=== PATIENT | female | born 1945 | race Caucasian/White ===

== ENCOUNTER 2018-01-15 22:31 | Inpatient (IN) ==
[2018-01-16] MEDS ORDERED: Ketorolac 15 MG/ML VIAL IVP PRN (03:11)
[2018-01-16] MEDS ORDERED: Naloxone 0.4 MG/ML INJ IVP PRN ×2 (03:11→18:48)
[2018-01-16] MEDS ORDERED: OXYCODONE Oral CONC 10 MG/0.5 ML ORAL.SYG SL PRN (03:11)
[2018-01-16] MEDS ORDERED: D5% in Lactated Ringers 1,000 ML IVC SCH ×2 (03:15→18:48)
--- NOTE | 2018-01-16 04:47 | Internal Med History&Physical ---
Date of Encounter: 01/16/18 Time of Encounter: 04:41 Internal Medicine - H&P: HPI Chief complaint: Fall History of present illness: Ms. Machado is a 72 year old female with a past medical history of hypertension, Parkinson's, hyperlipidemia and spinal stenosis who initially presented to [facility] after a mechanical fall from a standing height. Patient states she was in the kitchen and left to go to her bedroom using her walker. She states that her legs all of a sudden gave out from under her resulting in her fall. Patient was unable to arise from the floor and states that she was down for about 2 hours until her daughter arrived. Her was with her in the house however he was in his bedroom and is hard of hearing. Was patient was found by family member after approximately 2-1/2 hours downtime. Currently denies any significant pain except with attempted motion of her left lower extremity. Patient has a history of chronic pain from spinal stenosis and was just started on a fentanyl patch recently. Patient is only patient is currently on aspirin. Patient arrived to [facility] at clinically stable. Documents show that a left hip deformity was noted. X-ray of the left hip showed left femoral neck fracture. Laboratory workup was otherwise unremarkable. Past Med Surg Social Fam HX - Past Medical History Medical history: atrial fibrillation, hyperlipidemia, hypertension, other Additional medical history: parkinsons - Past Surgical History Additional surgical history: tubal ligation, salpingectomy, right middle and index finger reattachment, adenoids - Social History Smoking Status: Never smoker Smokeless Tobacco Status: No Alcohol use: none Drug use: none - Family History Father Living Status: Hx Family Neurologic Disorders: Yes (parkinsons) Internal Medicine - H&P: Meds Amantadine HCl [Amantadine] 100 mg PO TID 01/16/18 [History] Aspirin Enteric Coated [Aspirin EC] 81 mg PO DAILY 01/16/18 [History] Atorvastatin [Lipitor] 20 mg PO HS 01/16/18 [History] Carbidopa/Levodopa ER 50/200 [Sinemet ER 50-200 TAB] 1 tab PO 5XD 01/16/18 [History] Cyanocobalamin (Vitamin B-12) [Vitamin B-12] 500 mcg PO DAILY 01/16/18 [History] Entacapone [Comtan] 200 mg PO QID 01/16/18 [History] Metoprolol Tartrate [Lopressor] 25 mg PO BID 01/16/18 [History] Venlafaxine HCl [Venlafaxine HCl ER] 150 mg PO DAILY 01/16/18 [History] fentaNYL [Fentanyl] 25 mcg TP Q72H 01/16/18 [History] hydrOXYzine HCl [Hydroxyzine HCl] 10 mg PO HS 01/16/18 [History] Allergy/AdvReac Type Severity Reaction Status Date / Time metoclopramide [From Reglan] AdvReac Vomiting Verified 01/16/18 03:35 Penicillins AdvReac Vomiting Verified 01/16/18 03:35 All Systems PM: A 10-system review of systems was performed and is negative for pertinent findings except as documented above in the HPI. - Constitutional Constitutional: no chills, no fever(s), no night sweats - EENT Eyes: no change in vision, no discharge, no pain, no photophobia Ears: no ear discharge, no ear pain, no tinnitus Nose, mouth and throat: no dysphagia, no nasal discharge, no neck pain, no sore throat - Cardiovascular Cardiovascular ROS IM: no chest pain, no diaphoresis, no dyspnea, no li ghtheadedness, no palpitations, no syncope - Respiratory Respiratory: no cough, no dyspnea, no wheezing, no excessive phlegm production - Gastrointestinal Gastrointestinal: no abdominal pain, no diarrhea, no hematemesis, no hematochezia, no melena, no nausea, no vomiting - Genitourinary Genitourinary: no change in urinary stream, no dysuria, no flank pain, no hematuria - Musculoskeletal Musculoskeletal ROS IM: no numbness, no tingling - Integumentary Integumentary IM: no rash, no unusual bruising - Neurological Neurological ROS: no confusion, no convulsions, no focal weakness, no numbness, no tingling, no tremor(s) - Hematologic/Lymphatic Hematologic/Lymphatic: no easy bruising - Constitutional Vitals: Temp Pulse Resp BP Pulse Ox 98.1 F 51 17 113/71 94 01/16/18 03:27 01/16/18 03:27 01/16/18 03:27 01/16/18 03:27 01/16/18 03:27 Exam: General: Alert and oriented 3; no acute distress Skin:Normal color, no rash, no lesions. HEENT:EOM, pupils equal, round and reactive. Cardiovascular:Normal S1 & S2, no rubs, murmurs or gallops. No JVD. Pulse regular. Lungs:Normal breath sounds, no wheezes or crackles. Abdomen:Soft, non-tender, no rigidity. Extremities:No edema. DP pulses palpable bilaterally. Shortening of the left leg as compared to the right. Mild tenderness to palpation of the left hip Neurological: Resting tremor noted in the right lower extremity. Pulses:Carotid and radial pulses normal +2. Rest of the physical exam is non contributory Internal Med - H&P Results - Labs CBC & Chem 7: 01/17/18 05:55 01/17/18 05:55 - Assessment and plan (1) Fracture of femoral neck, left Current Visit: Yes Status: Acute Assessment and plan: Mechanical fall with Subcapital left femoral neck fracture with varus angulation with some overriding component as well as displacement of a distal fracture fragment slightly superiorly. Pain management IV fluids DVT prophylaxis Orthopedic consult Qualifiers: Encounter type: initial encounter Fracture type: closed Qualified Code(s): S72.002A - Fracture of unspecified part of neck of left femur, initial encounter for closed fracture (2) Parkinsons Current Visit: Yes Status: Acute Assessment and plan: History of Parkinson's. Holding medications until further evaluation by orthopedics. (3) Hypertension Current Visit: Yes Status: Acute Qualifiers: Hypertension type: unspecified Qualified Code(s): I10 - Essential (primary) hypertension (4) DVT prophylaxis Current Visit: Yes Status: Acute - Time Spent With Patient Total time spent is greater than 50% in coordination of care (as documented) at patient's floor/unit and/or counseling patient:
[2018-01-16 05:39] LABS: Basophils % 0.4 %; Eosinophils # 0.1 K/mcL (0.0-0.6); Eosinophils % 1.5 %; Hematocrit 39.5 % (35.3-44.9); Hemoglobin 12.4 g/dL (11.5-15.4); Immature Granulocytes % 0.4 % (0-4); Lymphocytes # 0.9 K/mcL (0.6-4.6); Lymphocytes % 17.2 %; Mean Corpuscular HGB Conc 31.4 g/dL (31.6-35.5); Mean Corpuscular Hemoglobin 28.3 pg (28.0-33.3); Mean Corpuscular Volume 90.2 fL (83.0-100.0); Mean Platelet Volume 9.3 fL (9.4-12.4); Monocytes # 0.3 K/mcL (0.0-1.3); Monocytes % 5.5 %; Neutrophils # 4.1 K/mcL (1.6-8.9); Platelet Count 129 K/mcL (140-400); Red Blood Count 4.38 M/mcL (3.82-4.97); Red Cell Distribution Width 13.6 % (11.5-14.5)
[2018-01-16 05:45] LABS: INR 1.3; Prothrombin Time 14.9 Seconds (9.4-12.1)
[2018-01-16 05:47] LABS: Activated Partial Thrombo Time 29.1 Seconds (26.0-36.0)
[2018-01-16 05:55] LABS: BUN/Creatinine Ratio 20 (6-26); Blood Urea Nitrogen 14 mg/dL (8-23); Calcium 8.8 mg/dL (8.6-10.3); Carbon Dioxide 27 mEq/L (23-29); Chloride 106 mEq/L (98-107); Creatine Kinase 293 Units/L (30-223); Glucose 98 mg/dL (70-105); Osmolality,Calculated 286 (280-300); Potassium 3.6 mEq/L (3.5-5.1); Sodium 138 mEq/L (136-145); eGFR For Non-African Americans > 60 (> 60)
[2018-01-16] MEDS: *HR* Heparin 5,000 UNIT/ML VIAL SQ SCH ×3 (06:31→20:55)
--- NOTE | 2018-01-16 07:03 | Orthopedic Consult Note ---
Date of Encounter: 01/16/18 Time of Encounter: 07:01 Assessment and Plan (1) Fracture of femoral neck, left Current Visit: Yes Status: Acute I did discuss the diagnosis in detail with the patient. She has a displaced left femoral neck fracture. My recommendation was to proceed with left hip hemiarthroplasty in order to stabilize the left hip, provide pain control, and allow for early mobilization.The risks discussed included but were not limited to stiffness, bleeding, infection, blood clots, damage to neurovascular structures, tendons, ligaments, and bone. Also discussed was the risk of continued symptoms and possible need for further procedures. I did discuss the anesthesia risks including stroke, heart attack, and . I did discuss the reasonable, foreseeable postoperative course with the patient. The patient did wish to proceed and consent was obtained. I did discuss the risks of fracture and dislocation and the need for implant revision. Qualifiers: Encounter type: initial encounter Fracture type: closed Qualified Code(s): S72.002A - Fracture of unspecified part of neck of left femur, initial encounter for closed fracture History of Present Illness HPI: Ms. Machado is a 72 year old female with a history of Parkinson's disease. She had a fall last night while using her walker and sustained a left displaced femoral neck fracture. She was transferred to our [facility] from an outside facility. She complains of isolated pain to the left proximal hip region and groin. She denies other injuries. She denies bilateral upper extremity pain and right lower extremity pain. The pain to the left hip is achy in nature and worse with any movements. She denies any associated numbness, tingling, or any other signs or symptoms or modifying factors. Past Med Surg Social Fam HX - Past Medical History Medical history: atrial fibrillation, hyperlipidemia, hypertension, other Additional medical history: parkinsons - Past Surgical History Additional surgical history: tubal ligation, salpingectomy, right middle and index finger reattachment, adenoids - Social History Smoking Status: Never smoker Smokeless Tobacco Status: No Alcohol use: none Drug use: none - Family History Father Living Status: Hx Family Neurologic Disorders: Yes (parkinsons) Medications and Allergies Amantadine HCl [Amantadine] 100 mg PO TID 01/16/18 [History] Aspirin Enteric Coated [Aspirin EC] 81 mg PO DAILY 01/16/18 [History] Atorvastatin [Lipitor] 20 mg PO HS 01/16/18 [History] Carbidopa/Levodopa ER 50/200 [Sinemet ER 50-200 TAB] 1 each PO 5XD 01/16/18 [History] Cyanocobalamin (Vitamin B-12) [Vitamin B-12] 500 mcg PO DAILY 01/16/18 [History] Entacapone [Comtan] 200 mg PO QID 01/16/18 [History] Metoprolol Tartrate [Lopressor] 25 mg PO BID 01/16/18 [History] Venlafaxine HCl [Venlafaxine HCl ER] 150 mg PO DAILY 01/16/18 [History] hydrOXYzine HCl [Hydroxyzine HCl] 10 mg PO HS 01/16/18 [History] Allergy/AdvReac Type Severity Reaction Status Date / Time metoclopramide [From Reglan] AdvReac Vomiting Verified 01/16/18 03:35 Penicillins AdvReac Vomiting Verified 01/16/18 03:35 All Systems Reviewed: Constitutional and musculoskeletal systems were reviewed and are negative unless otherwise stated in history of present illness. Physical Exam - Constitutional Vitals: Temp Pulse Resp BP Pulse Ox 97.8 F 71 16 147/68 96 01/16/18 06:52 01/16/18 06:52 01/16/18 06:52 01/16/18 06:52 01/16/18 06:52 Constitutional -Vitals reviewed -The patient is well developed and well nourished. -Mood is pleasant. -The patient is well groomed. -Generalized tremors consistent with her Parkinson's Psychiatric -The patient is fully alert and oriented x 3. Respiratory: -Respiratory effort normal Abdomen: -Soft abdomen -Non tender -Non distended: Left upper extremity: -No deformities. The overlying skin is intact. No obvious signs of acute trauma. -No tenderness to palpation throughout. -No significant pain with passive motion of the shoulder, elbow, wrist, and fingers within the limits of the bed. -Able to make an "OK" sign, cross the index and long fingers, and extend the thumb. -Sensation grossly intact to light touch throughout the median, radial, and ulnar distributions. -Radial pulse is present; Fingers have good capillary refill. Right upper extremity: -No deformities. The overlying skin is intact. No obvious signs of acute trauma. -No tenderness to palpation throughout. -No significant pain with passive motion of the shoulder, elbow, wrist, and fingers within the limits of the bed. -Able to make an "OK" sign, cross the index and long fingers, and extend the thumb. -Sensation grossly intact to light touch throughout the median, radial, and ulnar distributions. -Radial pulse is present; Fingers have good capillary refill. Left lower extremity: -The extremity is shortened and externally rotated. The overlying skin is intact. -There is tenderness in the groin region as well as the proximal lateral thigh. -I did not range the hip due to the known fracture. -No tenderness along the distal thigh, leg, ankle, foot, or toes. -Able to dorsiflex and plantarflex the ankle and toes. -Sensation is grossly intact to light touch throughout the sural, saphenous, superficial peroneal, and deep peroneal distributions. -Toes have good capillary refill. Right lower extremity: -No deformities. The overlying skin is intact. No obvious signs of acute trau ma. -No tenderness to palpation throughout. -No pain with passive motion of the hip, knee, ankle, and toes within the limits of the bed. -No pain with axial loading of the thigh. -Able to dorsiflex and plantarflex the ankle and toes. -Sensation is grossly intact to light touch throughout the sural, saphenous, superficial peroneal, and deep peroneal distributions. -Toes have good capillary refill. Diagnostic Imaging: I did personally review and interpret x-rays of the left hip show a displaced femoral neck fracture Results - Labs Result Diagrams: 01/16/18 05:10 01/16/18 05:10 Labs: Abnormal lab results MCHC 31.4 g/dL (31.6-35.5) L 01/16/18 05:10 Plt Count 129 K/mcL (140-400) L 01/16/18 05:10 MPV 9.3 fL (9.4-12.4) L 01/16/18 05:10 PT 14.9 Seconds (9.4-12.1) H 01/16/18 05:10 Creatine Kinase 293 Units/L (30-223) H 01/16/18 05:10 H & H 01/16/18 Range/Units 05:10 Hgb 12.4 (11.5-15.4) g/dL Hct 39.5 (35.3-44.9) % All other labs normal. Consult Discharge Plan - Plan Referrals: Solia Sagastume, ADRIAN [Primary Care Provider] -
--- NOTE | 2018-01-16 15:15 | Event Note ---
<Gosia Portillo - Last Filed: 01/16/18 15:31> Date of Encounter: 01/16/18 Time of Encounter: 09:00 Ms. Machado is a 72Yo F. Hospital day 0. Pt states she was in the kitchen last night about to walk back to her bedroom when her 'legs gave out' and she fell to the floor. She states she was down for about 2 hours until her daughter arrived and was able to call the ambulance. Xray showed left displaced subcapital femoral neck fx. Ortho was consulted and recommended hemiarthroplasty for stabilization. Pt states that the procedure will be performed later this morning. She is currently NPO. Pt denies fever, diaphoresis, confusion, H/A, vision changes, chest pain, SOB, syncope, palpitations, abdominal pain, NVD, numbness tingling, weakness. PMH: a-fib, HLD, HTN, Parkinson's, spinal stenosis Physical Exam: general: AAOX3, NAD Heart: RRR, no rubs, no gallops Lungs: CTAB, no wheezing, no rhonchi Abdomen: Normal BS X4, soft nondistended, nontender to palpation MSK: large ecchymosis on left shoulder, tenderness to palpation of left hip Skin: warm and dry, no lesions Assessment and Plan: Fracture of left femoral neck plan: pain control with oxycodone and toradol, s/p left hip hemiarthroplasty, DVT prophylaxis Parkinson's disease plan: pt medications are being held until further ortho evaluation, takes amantadine HTN pt BP 122/69 on 01/16/18 plan: metoprolol d/c DVT prophylaxis plan: Heparin SQ <Kristen Eastman - Last Filed: 01/16/18 18:21> I have re-performed and reviewed the history documented by the medical student, and I confirm its accuracy except as noted below <Ni Montoya - Last Filed: 01/17/18 01:18> I examined this patient and my medical decision-making was reviewed with the Resident Physician and Medical Student. I agree with the documented findings, disposition and treatment plan as described except to the extent set forth below.
--- NOTE | 2018-01-16 16:21 | Anesthesia Evaluation PreOp ---
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: Other (Chronic pain, Parkinsonism, Spinal Stenosis) Other Medical History: Denies Any Significant HX Anesthesia History: No Prior Anesthetic Complications, Past Anesthesia Alcohol Use: none Drug use: none Medications and Allergies Amantadine HCl [Amantadine] 100 mg PO TID 01/16/18 [History] Aspirin Enteric Coated [Aspirin EC] 81 mg PO DAILY 01/16/18 [History] Atorvastatin [Lipitor] 20 mg PO HS 01/16/18 [History] Carbidopa/Levodopa ER 50/200 [Sinemet ER 50-200 TAB] 1 tab PO 5XD 01/16/18 [History] Cyanocobalamin (Vitamin B-12) [Vitamin B-12] 500 mcg PO DAILY 01/16/18 [History] Entacapone [Comtan] 200 mg PO QID 01/16/18 [History] Metoprolol Tartrate [Lopressor] 25 mg PO BID 01/16/18 [History] Venlafaxine HCl [Venlafaxine HCl ER] 150 mg PO DAILY 01/16/18 [History] fentaNYL [Fentanyl] 25 mcg TP Q72H 01/16/18 [History] hydrOXYzine HCl [Hydroxyzine HCl] 10 mg PO HS 01/16/18 [History] Allergy/AdvReac Type Severity Reaction Status Date / Time metoclopramide [From Reglan] AdvReac Vomiting Verified 01/16/18 03:35 Penicillins AdvReac Vomiting Verified 01/16/18 03:35 - Meds/Allergy Pre-op Review Medications Reviewed: Yes Allergies Reviewed: Yes Beta Blockers on Current Med List: No Anesthesia Results - Labs 01/16/18 05:10 01/16/18 05:10 Laboratory Results - Imaging EKG: pending Anesthesia Exam Vital Signs Temp Pulse Resp BP Pulse Ox 01/16/18 11:07 99.2 F 69 18 122/69 96 01/16/18 06:52 97.8 F 71 16 147/68 96 01/16/18 03:27 98.1 F 51 17 113/71 94 Intake and Output 01/16/18 01/16/1801/16/18 07:59 15:59 23:59 Other: Weight 70 kg Patient Weight 01/16/18 23:59 Weight 70 kg Height: 5'5" Weight: 154# BMI = 25.7 NPO (# of Hours): MNoc Pain Scale Used: Numeric (1 - 10) - HEENT Pupil (Motor): Pupils equal, EOMI - 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: 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 MARINE ENGINE[employer] Motor: Normal RUE (baseline tremors x all 4 extremities), Normal LUE, Normal RLE, Normal LLE, Normal Face [employer] ENG[employer] Sensory: Normal: RUE, LUE, RLE, LLE, Face - Cardiac Rhythm: Irregular Murmur: None JVD: No - Pulmonary Breath Sounds: bilateral Clear Respiratory Effort: Symmetrical Anesthesia Assess/Plan ASA Score: 3 (Spinal stenosis, Chronic Pain, AFib) Modified Tarik Scale for Level of Consciousness: Cooperative, oriented, and tranquil Anesthetic Plan: General Monitoring Plan: Standard Monitors Recovery Plan: PACU Anes Supervising Prov Stmt: Pt seen/evaluated, R&B questions answered and consent obtained. Luis Del Castillo MD
[2018-01-16] MEDS ORDERED: Ethanol\\Acetic Acid\\Na Ace\\Ben 1,000 ML IRRIG.SOLN IR ONE (16:25)
[2018-01-16] MEDS ORDERED: *HR* FentaNYL (PF) 100 MCG/2 ML VIAL ONE (16:50)
[2018-01-16] MEDS ORDERED: *HR* Propofol 200 MG/20 ML VIAL IVP ONE (16:50)
[2018-01-16] MEDS ORDERED: Dexamethasone 4 MG/ML VIAL ONE (16:51)
[2018-01-16] MEDS ORDERED: Ondansetron 4 MG/2 ML VIAL ONE (16:51)
[2018-01-16] MEDS ORDERED: Lidocaine -MPF 2% 2 ML VIAL ONE (16:51)
[2018-01-16] MEDS ORDERED: *HR* Morphine 2 MG/ML SYRINGE IVP PRN (16:55)
[2018-01-16] MEDS ORDERED: *HR* Labetalol 20 MG/4 ML SYRINGE IVP PRN ×2 (16:55→18:48)
[2018-01-16] MEDS ORDERED: *HR* Rocuronium Bromide 50 MG/5 ML VIAL ONE (17:55)
--- NOTE | 2018-01-16 18:06 | Orthopedic Operative Note ---
Date of procedure: 01/16/18 Pre-op diagnosis: Displaced left femoral neck fracture Post-op diagnosis: same Procedure: Procedure: Left hip hemiarthroplasty Estimated blood loss: 200 cc Hardware: Bipolar plastic and Metal replacement femur and femoral head. Size 13 press-fit stem, 46 bipolar head with a -6 neck Findings: Patient with acetabular wear posteriorly. Procedural Notes: Operative procedure: The patient was brought to the operating room and placed on the operating room table. After general anesthesia was administered the patient was placed in the lateral decubitus position with the operative leg up. All pressure points were padded appropriately and the head was stabilized in the neutral position. The operative extremity was prepped and draped in the sterile surgical fashion patient received IV antibiotic prior to skin incision. A standard posterior approach is made to the operative hip, the incision was made through the skin and subcutaneous tissue hemostasis was obtained with Bovie cautery. Using careful sharp dissection the fascia was identified and incised exposing the external rotators. The external rotators were released off the greater trochanter and tagged with #2 FiberWire suture. The capsule was T'd open the femoral head was removed. The femoral neck cut was made at the appropriate level. The hip was brought into internal rotation and prepared with the hand box coverer followed by the canal finder followed by broaching process in 20 degrees anteversion. It was broached up to the appropriate size 13. The femoral implant was impacted in place in 20 degrees of anteversion. Trial reduction found the hip to be stable with the -6 neck 46 bipolar head. The trials were removed and the real implants were impacted in place. The hip was reduced, the hip had full extension and full flexion of the knee was in full extension.the patient had apparent equal leg length. The hip had excellent stability with forward flexion to 90 degrees adduction of 30 degrees and internal rotation of 60 degrees. The hip had no shuck. The hip was irrigated out with 2 L of pulse irrigation. The external rotators were reattached to drill holes in the greater trochanter. Fascia was closed over #2 PDS suture. The deep tissue was irrigated and closed deep with #1 PDS suture superficially with 0 PDS suture and skin was closed with skin nabeel. The patient was placed in a sterile dressing and abduction pillow. The patient was extubated and transferred to the recovery room in stable condition. Anesthesia: GETA Surgeon: Can Castanon Was there an safety assistant present: Yes Lumber Tripper: Madalyn Ledezma Estimated blood loss (cc): 200 Condition: stable Disposition: PACU
[2018-01-16] MEDS ORDERED: Ondansetron 4 MG/2 ML VIAL IVP PRN (18:48)
[2018-01-16] MEDS ORDERED: Temazepam 15 MG CAPSULE PO PRN (18:48)
[2018-01-16] MEDS ORDERED: Sennosides 8.6 MG TABLET PO PRN (18:48)
[2018-01-16] MEDS ORDERED: Ringers Solution, Lactated 1,000 ML IVC SCH (18:48)
[2018-01-16] MEDS ORDERED: MOM Conc 10 ML UD.LIQ PO PRN (18:48)
[2018-01-16] MEDS: Ketorolac 15 MG/ML VIAL IVP PRN (18:49)
[2018-01-16] MEDS: *HR* Morphine 2 MG/ML SYRINGE IVP PRN ×2 (18:49→18:59)
[2018-01-16 20:09] LABS: Hematocrit 35.7 % (35.3-44.9); Hemoglobin 11.3 g/dL (11.5-15.4)
--- NOTE | 2018-01-16 20:21 | Anesthesia Evaluation Post Op ---
Date of Encounter: 01/16/18 Time of Encounter: 19:15 - Vital Signs Vital Signs: Vital Signs/O2 Sat/Glucose, Most Current Temp Pulse Resp BP Pulse Ox 01/16/18 19:12 98.5 F 92 14 120/88 97 01/16/18 19:02 98.5 F 95 14 135/83 98 01/16/18 18:52 78 16 137/78 99 01/16/18 18:42 75 16 136/77 97 01/16/18 18:32 98.6 F 80 16 151/65 100 - Lungs Lungs: Clear Ascult./Percussion - Airway Airway: Non-obstructed - Cardiovascular Regular Rate - Mental Status Mental Status: Alert & Oriented, Answers Appropriately - Pain Pain Scale: 0 - Nausea Vomiting Nausea Vomiting: Not Present - Hydration Hydration: Tolerates oral liquids - Discharge PostOp Status: Transfer Patient to floor
[2018-01-16] MEDS: OXYCODONE Oral CONC 10 MG/0.5 ML ORAL.SYG SL PRN (20:55)
[2018-01-16] MEDS: Clindamycin 900 MG/50 ML 900 MG/50 ML IV.SOLN IVPB SCH (23:31)
[2018-01-17] MEDS: OXYCODONE Oral CONC 10 MG/0.5 ML ORAL.SYG SL PRN (04:18)
[2018-01-17] MEDS: *HR* Heparin 5,000 UNIT/ML VIAL SQ SCH (05:14)
--- NOTE | 2018-01-17 06:16 | Orthopedics Progress Note ---
Date of Encounter: 01/17/18 Time of Encounter: 06:16 Subjective Interval history: Patient was seen this morning doing well without complaints. Afebrile vital signs stable. Operative extremity: Neurovascularly intact Dressing clean dry and intact Calves nontender Assessment and plan: Continue with postoperative care Objective Vital signs: Vital Signs Temp Pulse Resp BP Pulse Ox 01/17/18 04:47 98.7 F 88 16 115/56 97 01/16/18 22:30 98.8 F 88 16 121/61 94 01/16/18 21:30 98.9 F 81 16 132/71 98 01/16/18 20:30 98.9 F 97 16 120/73 97 01/16/18 20:00 97.8 F 109 16 115/71 98 01/16/18 19:30 97.1 F L 93 18 136/80 100 01/16/18 19:12 98.5 F 92 14 120/88 97 01/16/18 19:02 98.5 F 95 14 135/83 98 01/16/18 18:52 78 16 137/78 99 01/16/18 18:42 75 16 136/77 97 01/16/18 18:32 98.6 F 80 16 151/65 100 01/16/18 11:07 99.2 F 69 18 122/69 96 01/16/18 06:52 97.8 F 71 16 147/68 96 Intake and Output 01/16/18 01/16/18 01/17/18 15:59 23:59 07:59 Intake Total 100 / 100 50 / 50 Output Total 650 / 650 425 / 425 Balance -550 / -550 -375 / -375 Intake: IV Fluids 50 / 50 Cleocin Premix 900 MG/50 ML 900 50 / 50 mg In 50 ml @ 50 mls/hr IVPB Q8HR [facility] Rx#:[id number] Oral 100 / 100 0 / 0 Output: Estimated Blood Loss 200 / 200 Catheter 450 / 450 425 / 425 Other: Weight 68.9 kg Patient Weight 01/17/18 23:59 Weight 68.9 kg - Labs CBC & BMP: 01/16/18 18:57 01/16/18 05:10 Labs: Abnormal lab results Hgb 11.3 g/dL (11.5-15.4) L 01/16/18 18:57 MCHC 31.4 g/dL (31.6-35.5) L 01/16/18 05:10 Plt Count 129 K/mcL (140-400) L 01/16/18 05:10 MPV 9.3 fL (9.4-12.4) L 01/16/18 05:10 PT 14.9 Seconds (9.4-12.1) H 01/16/18 05:10 Creatine Kinase 293 Units/L (30-223) H 01/16/18 05:10 Consult Discharge Plan - Plan Referrals: Soila Sagastume, INTEGRATION AIDE [Primary Care Provider] -
[2018-01-17 06:22] LABS: Hemoglobin 10.3 g/dL (11.5-15.4)
[2018-01-17 06:38] LABS: BUN/Creatinine Ratio 20 (6-26); Blood Urea Nitrogen 14 mg/dL (8-23); Calcium 8.4 mg/dL (8.6-10.3); Carbon Dioxide 27 mEq/L (23-29); Chloride 104 mEq/L (98-107); Glucose 117 mg/dL (70-105); Osmolality,Calculated 286 (280-300); Potassium 3.8 mEq/L (3.5-5.1); Sodium 137 mEq/L (136-145); eGFR For Non-African Americans > 60 (> 60)
[2018-01-17] MEDS: Multivit/Ca/Min/Fe/FA 1 TAB TABLET PO SCH (08:23)
[2018-01-17] MEDS: Clindamycin 900 MG/50 ML 900 MG/50 ML IV.SOLN IVPB SCH (08:24)
[2018-01-17] MEDS: Ascorbic Acid 500 MG TABLET PO SCH ×2 (08:25→16:20)
[2018-01-17] MEDS ORDERED: *HR* FentaNYL PATCH 25 MCG PATCH TD SCH (08:45)
[2018-01-17] MEDS: Cyanocobalamin (B-12) 1,000 MCG TABLET PO SCH (09:33)
[2018-01-17] MEDS: Aspirin Enteric Coated 81 MG Tablet PO SCH (09:34)
[2018-01-17] MEDS: Venlafaxine XR (24 HR) 150 MG CAP.ER.24H PO SCH (09:36)
--- NOTE | 2018-01-17 11:36 | Internal Med Progress Note ---
<Gosia Portillo - Last Filed: 01/17/18 12:59> Hospitalist Progress Note - Encounter Date of Encounter: 01/17/18 Time of Encounter: 09:00 - Subjective Interval History: pt is a 72 Yo F. Hospital day 1. pt presented for a left displaced subcapital femoral fracture after falling in her kitchen 01/16/18 ortho was consulted and recommended a left hip hemiarthroplasty which was performed yesterday afternoon 01/16/18 Pt seen today and denies fever, NVD, H/A, confusion, vision changes, SOB, chest pain, abdominal pain. Pt has not yet had a BM. She admits to dizziness, diaphoresis, numbness in the left leg, and mild weakness in bilateral LE. Pt states she is doing well today and tolerated surgery well. - Exam Vitals: Temp Pulse Resp BP Pulse Ox 98.5 F 92 15 146/68 94 01/17/18 10:50 01/17/18 10:50 01/17/18 10:50 01/17/18 10:50 01/17/18 10:50 Exam: General: AAOX3, NAD HEENT: normocephalic, mucous membranes moist Cardiovascular: RRR, no murmurs, no rubs Respiratory: CTAB, no wheezing, no rhonchi Abdomen: normal BSX4, soft, nontender, nontender to palpation MSK: no leg edema, left leg and hip in brace Skin: warm and dry - Assessment and Plan (1) Fracture of femoral neck, left Current Visit: Yes Status: Acute Assessment and Plan: pt presented with left displaced subcapital femoral fracture after falling in her kitchen on 01/16/18 ortho was consulted and recommended left hip hemiarthroplasty for stabilization. 01/16/18 hemiarthroplasty was performed yesterday afternoon and pt tolerated surgery well. plan -continue postoperative care -IVF lactated ringers -pain management -f/u with PTOT -f/u with [facility] -d/c to home tomorrow with lovenox (2) Parkinsons Current Visit: Yes Status: Chronic Assessment and Plan: pt has chronic h/o parkinson's disease plan -continue amantadine -continue carbidopa/levodopa (3) Hypertension Current Visit: No Status: Chronic Assessment and Plan: pt has chronic h/o HTN pt BP on 01/16/18 was 121/61 today BP is 116/58 plan -on metoprolol and labetalol (4) DVT prophylaxis Current Visit: Yes Status: Acute Assessment and Plan: plan -d/c heparin SQ -start Lovenox 01/18/18 - Time Spent with Patient Total time spent is greater than 50% in coordination of care (as documented) at patient's floor/unit and/or counseling patient: Internal Medicine: Result - Labs CBC & Chem 7: 01/17/18 05:55 01/17/18 05:55 Labs: Short CBC 01/16/18 01/17/18 Range/Units 18:57 05:55 Hgb 11.3 L 10.3 L (11.5-15.4) g/dL Hct 35.7 32.0 L (35.3-44.9) % BMP 01/17/18 05:55 Sodium 137 Potassium 3.8 Chloride 104 Carbon Dioxide 27 BUN 14 Creatinine 0.69 Glucose 117 H Calcium 8.4 L - ABG Interpretation ABG results: PT/INR, D-dimer PT 14.9 Seconds (9.4-12.1) H 01/16/18 05:10 - Impressions Impressions Hip X-Ray 01/16/18 17:20 IMPRESSION: Status post left hip replacement. D/ / Bre Hwang Cha, MD / Bre Hwang Cha, MD Interpreting Provider: Bre Hwang Cha, MD Consult Discharge Plan - Plan Referrals: Soila Sagastume TOURIST AGENT [Primary Care Provider] - <Kristen Eastman - Last Filed: 01/17/18 13:57> Hospitalist Progress Note - Subjective Interval History: I have re-performed and reviewed the history documented by the medical student, and I confirm its accuracy except as noted below - Exam Vitals: Temp Pulse Resp BP Pulse Ox 98.5 F 92 15 146/68 94 01/17/18 10:50 01/17/18 10:50 01/17/18 10:50 01/17/18 10:50 01/17/18 10:50 - Assessment and Plan (1) Fracture of femoral neck, left Current Visit: Yes Status: Acute Assessment and Plan: Will D/C IVF Pain management Plan to d/c to SNF tomorrow (2) Parkinsons Current Visit: Yes Status: Chronic Assessment and Plan: Cont home meds (3) Hypertension Current Visit: No Status: Chronic Assessment and Plan: Cont home meds (4) DVT prophylaxis Current Visit: Yes Status: Acute Assessment and Plan: Plan to start Lovenox 40mg SQ today - will continue for a total of 10 days. DVT Prophylaxis: Started Lovenox 40mg SQ QD Day#1 (Plan for 10days total) - Time Spent with Patient Total time spent is greater than 50% in coordination of care (as documented) at patient's floor/unit and/or counseling patient: less than 15 minutes Plan of Care Discussed with: patient Internal Medicine: Result - Labs CBC & Chem 7: 01/17/18 05:55 01/17/18 05:55 Labs: Short CBC 01/16/18 01/17/18 Range/Units 18:57 05:55 Hgb 11.3 L 10.3 L (11.5-15.4) g/dL Hct 35.7 32.0 L (35.3-44.9) % BMP 01/17/18 05:55 Sodium 137 Potassium 3.8 Chloride 104 Carbon Dioxide 27 BUN 14 Creatinine 0.69 Glucose 117 H Calcium 8.4 L - ABG Interpretation ABG results: PT/INR, D-dimer PT 14.9 Seconds (9.4-12.1) H 01/16/18 05:10 - Impressions Impressions Hip X-Ray 01/16/18 17:20 IMPRESSION: Status post left hip replacement. D/ / Bre Hwang Cha, MD / Bre Hwang Cha, MD Interpreting Provider: Bre Hwang Cha, MD <Inderjit Juan - Last Filed: 01/17/18 14:26> Hospitalist Progress Note - Encounter Time of Encounter: 14:22 - Exam Vitals: Temp Pulse Resp BP Pulse Ox 98.5 F 92 15 146/68 94 01/17/18 10:50 01/17/18 10:50 01/17/18 10:50 01/17/18 10:50 01/17/18 10:50 - Assessment and Plan (1) Fracture of femoral neck, left Current Visit: Yes Status: Acute (2) Parkinsons Current Visit: Yes Status: Chronic (3) Hypertension Current Visit: No Status: Chronic (4) DVT prophylaxis Current Visit: Yes Status: Acute - Time Spent with Patient Total time spent is greater than 50% in coordination of care (as documented) at patient's floor/unit and/or counseling patient: Internal Medicine: Result - Labs CBC & Chem 7: 01/17/18 05:55 01/17/18 05:55 Labs: Short CBC 01/16/18 01/17/18 Range/Units 18:57 05:55 Hgb 11.3 L 10.3 L (11.5-15.4) g/dL Hct 35.7 32.0 L (35.3-44.9) % BMP 01/17/18 05:55 Sodium 137 Potassium 3.8 Chloride 104 Carbon Dioxide 27 BUN 14 Creatinine 0.69 Glucose 117 H Calcium 8.4 L - ABG Interpretation ABG results: PT/INR, D-dimer PT 14.9 Seconds (9.4-12.1) H 01/16/18 05:10 - Impressions Impressions Hip X-Ray 01/16/18 17:20 IMPRESSION: Status post left hip replacement. D/ / Bre Hwang Cha, MD / Bre Hwang Cha, MD Interpreting Provider: Bre Hwang Cha, MD - Attending Attestation I saw evaluated and examined this patient and my medical decision-making was reviewed with the Resident Physician, Kristen Eastman and Medical Student, Gosia Portillo. I agree with the documented findings, disposition and treatment plan as described except to any changes set forth below. We independently had [id number] contact with the patient. Patient is lying down in bed. Complains of pain in her left hip although it has improved compared to earlier today when she was working with physical therapy. Controlled with her current pain medication regimen. Underwent surgery yesterda y with left hip hemiarthroplasty. Denies any new complaints at this time. On examination, patient is awake and alert. In mild distress due to pain. She does have resting tremor. Heart sounds are normal. Abdomen is soft, nontender. Breath sounds are normal. Tenderness noted in left hip. Acute fracture of the left femoral neck: Continue supportive care. Status post left hip hemiarthroplasty. Postop day 1. Continue PTOT. Pain control. Awaiting placement to skilled rehabilitation. Parkinson's disease: Continue Sinemet and amantadine. Essential hypertension: Fairly controlled. Continue metoprolol. DVT prophylaxis with subcutaneous Lovenox. Moderate risk for complications. <Gosia Portillo - Last Filed: 01/17/18 12:59> (1) Fracture of femoral neck, left Qualifiers: Encounter type: initial encounter Fracture type: closed Qualified Code(s): S72.002A - Fracture of unspecified part of neck of left femur, initial encounter for closed fracture (3) Hypertension Qualifiers: Hypertension type: unspecified Qualified Code(s): I10 - Essential (primary) hypertension <Kristen Eastman - Last Filed: 01/17/18 13:57> (1) Fracture of femoral neck, left Qualifiers: Encounter type: initial encounter Fracture type: closed Qualified Code(s): S72.002A - Fracture of unspecified part of neck of left femur, initial encounter for closed fracture (3) Hypertension Qualifiers: Hypertension type: unspecified Qualified Code(s): I10 - Essential (primary) hypertension <Inderjit Juan - Last Filed: 01/17/18 14:26> (1) Fracture of femoral neck, left Qualifiers: Encounter type: initial encounter Fracture type: closed Qualified Code(s): S72.002A - Fracture of unspecified part of neck of left femur, initial encounter for closed fracture (3) Hypertension Qualifiers: Hypertension type: unspecified Qualified Code(s): I10 - Essential (primary) hypertension
[2018-01-17] MEDS: Carbidopa/Levodopa ER 50/200 TABLET PO SCH ×3 (16:19→21:31)
[2018-01-18] MEDS: Carbidopa/Levodopa ER 50/200 TABLET PO SCH ×4 (01:24→16:41)
[2018-01-18 04:56] LABS: Basophils % 0.1 %; Eosinophils # 0.2 K/mcL (0.0-0.6); Eosinophils % 2.1 %; Hemoglobin 9.4 g/dL (11.5-15.4); Immature Granulocytes % 0.3 % (0-4); Lymphocytes # 2.1 K/mcL (0.6-4.6); Lymphocytes % 29.6 %; Mean Corpuscular HGB Conc 31.3 g/dL (31.6-35.5); Mean Corpuscular Hemoglobin 28.7 pg (28.0-33.3); Mean Corpuscular Volume 91.5 fL (83.0-100.0); Monocytes # 0.5 K/mcL (0.0-1.3); Monocytes % 6.9 %; Neutrophils # 4.3 K/mcL (1.6-8.9); Platelet Count 144 K/mcL (140-400); Red Blood Count 3.28 M/mcL (3.82-4.97); Red Cell Distribution Width 13.9 % (11.5-14.5)
[2018-01-18 05:12] LABS: BUN/Creatinine Ratio 27 (6-26); Blood Urea Nitrogen 25 mg/dL (8-23); Calcium 8.3 mg/dL (8.6-10.3); Carbon Dioxide 29 mEq/L (23-29); Chloride 103 mEq/L (98-107); Glucose 94 mg/dL (70-105); Osmolality,Calculated 292 (280-300); Potassium 3.4 mEq/L (3.5-5.1); Sodium 139 mEq/L (136-145); eGFR For Non-African Americans 58 (> 60)
[2018-01-18] MEDS: Ketorolac 15 MG/ML VIAL IVP PRN (05:42)
[2018-01-18] MEDS ORDERED: *HR* Enoxaparin 40 MG/0.4 ML SYRINGE SQ SCH (06:00)
--- NOTE | 2018-01-18 06:39 | Orthopedics Progress Note ---
Date of Encounter: 01/18/18 Time of Encounter: 06:38 Subjective Interval history: Patient was seen this morning doing well without complaints. Afebrile vital signs stable. Operative extremity: Neurovascularly intact Dressing clean dry and intact Calves nontender Assessment and plan: Continue with postoperative care Hematocrit 30 stable for discharge Objective Vital signs: Vital Signs Temp Pulse Resp BP Pulse Ox 01/18/18 06:35 98.8 F 83 16 91/56 96 01/18/18 03:41 98.2 F 76 17 101/65 96 01/18/18 00:03 98.2 F 83 18 111/68 99 01/17/18 21:27 118/61 01/17/18 21:05 98 01/17/18 19:15 98.5 F 69 17 99/62 98 01/17/18 15:29 97.7 F 70 16 93/55 98 01/17/18 10:50 98.5 F 92 15 146/68 94 01/17/18 06:54 98.8 F 98 14 116/58 97 Intake and Output 01/17/18 01/17/18 01/18/18 15:59 23:59 07:59 Intake Total 240 / 240 Balance 240 / 240 Intake: Oral 240 / 240 Other: Meal Lunch Dinner Percent of Meal Consumed 90% 50% # Voids 1 Weight 76 kg Patient Weight 01/18/18 23:59 Weight 76 kg - Labs CBC & BMP: 01/18/18 04:22 01/18/18 04:22 Labs: Abnormal lab results RBC 3.28 M/mcL (3.82-4.97) L 01/18/18 04:22 Hgb 9.4 g/dL (11.5-15.4) L 01/18/18 04:22 Hct 30.0 % (35.3-44.9) L 01/18/18 04:22 MCHC 31.3 g/dL (31.6-35.5) L 01/18/18 04:22 PT 14.9 Seconds (9.4-12.1) H 01/16/18 05:10 Potassium 3.4 mEq/L (3.5-5.1) L 01/18/18 04:22 BUN 25 mg/dL (8-23) H 01/18/18 04:22 Est GFR (Non-Af Amer) 58 (> 60) L 01/18/18 04:22 BUN/Creatinine Ratio 27 (6-26) H 01/18/18 04:22 Calcium 8.3 mg/dL (8.6-10.3) L 01/18/18 04:22 Creatine Kinase 293 Units/L (30-223) H 01/16/18 05:10 Consult Discharge Plan - Plan Referrals: Soila Sagastume, ADRIAN [Primary Care Provider] -
[2018-01-18] MEDS: Cyanocobalamin (B-12) 1,000 MCG TABLET PO SCH (09:49)
[2018-01-18] MEDS: Ascorbic Acid 500 MG TABLET PO SCH ×2 (09:49→16:41)
[2018-01-18] MEDS: Aspirin Enteric Coated 81 MG Tablet PO SCH (09:49)
[2018-01-18] MEDS: Venlafaxine XR (24 HR) 150 MG CAP.ER.24H PO SCH (09:49)
[2018-01-18] MEDS: Multivit/Ca/Min/Fe/FA 1 TAB TABLET PO SCH (09:49)
[2018-01-18 10:04] LABS: Hematocrit 30.3 % (35.3-44.9); Hemoglobin 9.5 g/dL (11.5-15.4)
--- NOTE | 2018-01-18 10:35 | Discharge Summary ---
- NOTES TO OUTPATIENT PROVIDER Notes to Outpatient Provider: Patient with history of Parkinson's disease, hypertension, spinal stenosis and hyperlipidemia was hospitalized here with fall and acute fracture of the left femoral neck. She was hospitalized and evaluated by orthopedics who recommended surgery with left hip hemiarthroplasty. Patient underwent this procedure earlier on 01/16. Since then she has been recovering well. She is clinically stable for discharge today and will be discharged to skilled rehabilitation when she is accepted. Orders not resulted at time of discharge: Pending orders 01/16/18 18:55 Surgical Pathology [PTH] Routine Date of Encounter: 01/18/18 Time of Encounter: 10:32 - Discharge Diagnosis (1) Fracture of femoral neck, left Priority: Primary Status: Acute Qualifiers: Encounter type: initial encounter Fracture type: closed Qualified Code(s): S72.002A - Fracture of unspecified part of neck of left femur, initial encounter for closed fracture (2) Parkinsons Priority: Secondary Status: Chronic (3) Hypertension Priority: Secondary Status: Chronic Qualifiers: Hypertension type: essential hypertension Qualified Code(s): I10 - Essential (primary) hypertension (4) DVT prophylaxis Priority: Secondary Status: Acute Hospital course: Ms. Machado is a 72 year old female Patient with a history of Parkinson's disease, hypertension, spinal stenosis and hyperlipidemia who was hospitalized here with fall and acute fracture of the left femoral neck. She was hospitalized and evaluated by orthopedics who recommended surgery with left hip hemiarthroplasty. Patient underwent this procedure earlier on 01/16. Since then she has been recovering well. She is clinically stable for discharge today and will be discharged to skilled rehabilitation when she is accepted. Discharge discussed with: patient - Time Spent with Patient Total time spent providing and/or coordinating discharge services: Greater than 30 minutes (35 min) - Discharge Medications Prescriptions: RX: Enoxaparin [Lovenox] 40 mg SQ 0600 #9 syringe RX: fentaNYL [Fentanyl] 25 mcg TP Q72H 15 Days #5 patch.td72 RX: Oxycodone HCl/Acetaminophen [Percocet 5-325 mg Tablet] 1 each PO Q6H PRN 5 Days #14 tablet PRN Reason: Moderate / Severe pain Home Medications: RX: Amantadine HCl [Amantadine] 100 mg PO TID 01/16/18 [History] RX: Aspirin Enteric Coated [Aspirin EC] 81 mg PO DAILY 01/16/18 [History] RX: Atorvastatin [Lipitor] 20 mg PO HS 01/16/18 [History] RX: Carbidopa/Levodopa ER 50/200 [Sinemet ER 50-200 Tab] 1 tab PO 5XD 01/16/18 [History] RX: Cyanocobalamin (Vitamin B-12) [Vitamin B-12] 500 mcg PO DAILY 01/16/18 [History] RX: Entacapone [Comtan] 200 mg PO QID 01/16/18 [History] RX: Metoprolol Tartrate [Lopressor] 25 mg PO BID 01/16/18 [History] RX: Venlafaxine HCl [Venlafaxine HCl ER] 150 mg PO DAILY 01/16/18 [History] RX: hydrOXYzine HCl [Hydroxyzine HCl] 10 mg PO HS 01/16/18 [History] RX: Docusate [Colace] 100 mg PO BID capsule 01/18/18 [Rx] RX: Enoxaparin [Lovenox] 40 mg SQ 0600 #9 syringe 01/18/18 [Rx] RX: Multivit/Ca/Min/Fe/FA [Thera M Plus] 1 tab PO DAILY tablet 01/18/18 [Rx] RX: Oxycodone HCl/Acetaminophen [Percocet 5-325 mg Tablet] 1 each PO Q6H PRN 5 Days #14 tablet 01/18/18 [Rx] RX: fentaNYL [Fentanyl] 25 mcg TP Q72H 15 Days #5 patch.td72 01/18/18 [Rx] Allergies/Adverse Reactions: Allergy/AdvReac Type Severity Reaction Status Date / Time metoclopramide [From Reglan] AdvReac Vomiting Verified 01/16/18 03:35 Penicillins AdvReac Vomiting Verified 01/16/18 03:35 Date of admission: 01/16/18 03:09 Primary care physician: YOHANA Salgado Consults: 01/16/18 03:10 Consult to Orthopedic Surgery [CONS] Routine Consulting Provider: [facility] Reason for Consult: transferred from [place] for left hip fracture Call Completed: Yes 01/16/18 18:48 Consult to Nurse Navigator [CONS] Routine Comment: ortho navigator Consult to Occupational Therapy [CONS] Routine Comment: Evaluate, develop and implement POC Reason for Consult: total hip replacement Does patient have active BEDREST order?: No Is patient medically & hemodynamically stable?: Yes Consult to Physical Therapy [CONS] Routine Comment: Evaluate, develop and implement POC Reason for Consult: total hip replacement Does patient have active BEDREST order?: No Is patient medically & hemodynamically stable?: Yes Consult to Tappet Adjuster [CONS] Routine Reason for SW Consult: post op joint replacement RT Post Op Consult [CONS] Routine Discharging clinician: Inderjit Juan Anticipated date of discharge: 01/18/18 - Constitutional Vitals: Temp Pulse Resp BP Pulse Ox 98.8 F 83 16 91/56 96 01/18/18 06:35 01/18/18 06:35 01/18/18 06:35 01/18/18 06:35 01/18/18 06:35 General appearance: Present: cooperative, mild distress, A&O X 3, pleasant, answers questions appropriately Exam: Patient sitting up in chair. Reports that her pain is well controlled. - Respiratory Respiratory exam: Present: CTAB. Absent: accessory muscle use, rales, rhonchi, wheezes - Cardiovascular Cardiovascular exam: Present: RRR, +S1, +S2. Absent: diastolic murmur, gallop, rubs, systolic murmur - GI/Abdominal GI/Abdominal exam: Present: normal bowel sounds, soft, no peritoneal signs. Absent: distended, tenderness - Extremities Exam Extremities exam: Present: tenderness (left hip), warm, radial pulses palpable and symmetrical. Absent: calf tenderness, cyanotic, pedal edema - Neurological Exam Neurological exam: Present: alert, CN II-XII intact, oriented X3, no focal deficits. Absent: facial droop, speech deficit - Skin Skin exam: Present: dry, intact - Patient Status Disposition: Transfer SNF Condition: Fair Functional capacity at discharge: wheelchair bound Overall status at discharge: patient is progressing back to baseline - Discharge Instructions Instructions: Total Hip Replacement (DC), Chronic Hypertension (DC) Follow Up With: Can Castanon MD [Partnered Physician] - 02/02/18 1:45 pm (in 1-2 weeks) Soila Sagastume CNP [Primary Care Provider] - 02/02/18 10:20 am (in 1-2 weeks) - Diet and Activity Activity: as per physical therapy Diet: advance to your usual diet, low fat, low cholesterol, low salt diet
--- NOTE | 2018-01-18 10:45 | Physician Discharge Referral ---
ExtendedCare Referral Info Provider in Charge after Transfer: PCP Institutional Level of Care: Skilled - Diagnosis (1) Fracture of femoral neck, left Priority: Primary Status: Acute (2) Parkinsons Priority: Secondary Status: Chronic (3) Hypertension Priority: Secondary Status: Chronic (4) DVT prophylaxis Priority: Secondary Status: Acute Prognosis: Fair Aware of Diagnosis: Patient Aware of Prognosis: Patient - Transfer Medications Prescriptions: Enoxaparin [Lovenox] 40 mg SQ 0600 #9 syringe fentaNYL [Fentanyl] 25 mcg TP Q72H 15 Days #5 patch.td72 Oxycodone HCl/Acetaminophen [Percocet 5-325 mg Tablet] 1 each PO Q6H PRN 5 Days #14 tablet PRN Reason: Moderate / Severe pain Home Medications: Amantadine HCl [Amantadine] 100 mg PO TID 01/16/18 [History] Aspirin Enteric Coated [Aspirin EC] 81 mg PO DAILY 01/16/18 [History] Atorvastatin [Lipitor] 20 mg PO HS 01/16/18 [History] Carbidopa/Levodopa ER 50/200 [Sinemet ER 50-200 Tab] 1 tab PO 5XD 01/16/18 [History] Cyanocobalamin (Vitamin B-12) [Vitamin B-12] 500 mcg PO DAILY 01/16/18 [History] Entacapone [Comtan] 200 mg PO QID 01/16/18 [History] Metoprolol Tartrate [Lopressor] 25 mg PO BID 01/16/18 [History] Venlafaxine HCl [Venlafaxine HCl ER] 150 mg PO DAILY 01/16/18 [History] hydrOXYzine HCl [Hydroxyzine HCl] 10 mg PO HS 01/16/18 [History] Docusate [Colace] 100 mg PO BID capsule 01/18/18 [Rx] Enoxaparin [Lovenox] 40 mg SQ 0600 #9 syringe 01/18/18 [Rx] Multivit/Ca/Min/Fe/FA [Thera M Plus] 1 tab PO DAILY tablet 01/18/18 [Rx] Oxycodone HCl/Acetaminophen [Percocet 5-325 mg Tablet] 1 each PO Q6H PRN 5 Days #14 tablet 01/18/18 [Rx] fentaNYL [Fentanyl] 25 mcg TP Q72H 15 Days #5 patch.td72 10/31/18 [Rx] Allergies/Adverse Reactions: Allergy/AdvReac Type Severity Reaction Status Date / Time metoclopramide [From Reglan] AdvReac Vomiting Verified 01/16/18 03:35 Penicillins AdvReac Vomiting Verified 01/16/18 03:35 - Respiratory Orders Smoking Cessation: Smoking cessation has been advised. For more information, call the [place] Tobacco Quit Line at 2-773-LFTQ-NOW. - Lab Orders Lab Orders: Other (include drug levels w/frequency) (CBC, BMP in 1 week) - Advance Directives Code Status: Full Code - Mobility Orders Other (per PT) - Rehabiliation Orders Rehab Potential: Fair Rehab Orders: Evaluation for Physical Therapy, Evaluation for Occupational Therapy - Treatments Skin tear care topically daily PRN per policy - Diet Orders Cardiac CERTIFICATION: I certify that the transfer of the above named patient to an Extended Care Facility is necessary for the continuing treatment of the diagnosis listed. The above information is true and accurate reflection of patient's current condition. Confidential - Redisclosure prohibited without a patient's written consent.
[2018-01-18 14:58] VITALS: BP 117/73
--- NOTE | 2018-01-20 19:28 | Electrocardiograph Report ---
[address] [place], [place] [address] Test Date: 2018-01-16 Pat Name: Zandra Machado Department: 101 Room: [facility] Gender: F Podopediatrician: : 1945 Requested By: Robin Montoya Order Number: [id number] Reading MD: Bret Warren Measurements Intervals [place] Rate: 75 P: WI: 0 QRS: 38 QRSD: 94 T: -47 QT: 367 QTc: 396 Interpretive Statements ATRIAL FIBRILLATION INCOMPLETE RIGHT BUNDLE BRANCH BLOCK NONSPECIFIC ST-T CHANGES Electronically Signed On 01-20-2018 19:26:38 EDT by Bret Warren
== END 2018-01-18 17:25 | DRG 470 ==
LOC: 3NENU → SUATTDRO 01-16 03:09
PROVIDERS: ADMIT Internal Medicine; ATTEND Internal Medicine

== ENCOUNTER 2018-02-04 15:26 | Inpatient (IN) ==
[2018-02-04] MEDS ORDERED: Isovue-370 500 ML INFUS..BTL IV ONE ×2 (15:51→15:55)
[2018-02-04] MEDS ORDERED: 0.9 % Sodium Chloride 500 ML IVC ONE (15:55)
--- NOTE | 2018-02-04 16:04 | Emergency Department Note ---
Disposition Clinical Impression: Fluid collection at surgical site Qualifiers: Encounter type: initial encounter Qualified Code(s): T88.8XXA - Other specified complications of surgical and medical care, not elsewhere classified, initial encounter Disposition: Admitted As Inpatient Condition: Fair Time of Disposition: 18:22 General Adult HPI - General Chief complaint: ED General Medical Stated complaint: infection L hip s/p sx Time Seen by Provider: 02/04/18 15:30 Nursing Notes Reviewed: Yes Vital Signs Reviewed: Yes - History of Present Illness HPI Narrative: 72 old female [facility] from [facility] she [facility] for debilitation. Concern for weeping fluid from her left total hip incision. Patient had left total arthroplasty 19 days ago at this facility. She was doing well however, 2 days ago, patient nabeel were removed as an outpatient. Since then, she has had a , "slimy" drainage from her left hip incision. Coloration described as streaks of blood and clear. Patient reports to have soaked eight ABD pads today. Patient's daughter reports there is been about half gallon of drainage in total. The incision is painless and she has no hip pain. No fevers or chills. Additionally, patient was diagnosed 2 days ago by the prison facility with UTI and has been taking Bactrim DS. ROS: Positive: As above Negative: Fever, chills, nausea, vomiting, chest pains, palpitations, hip pain, abdominal or pelvic pain. Pain Scale: 0 - Related Data Home Medications Medication Instructions Recorded Confirmed Amantadine HCl [Amantadine] 100 mg PO TID 01/16/18 02/04/18 Aspirin Enteric Coated [Aspirin EC] 81 mg PO DAILY 01/16/18 02/04/18 Atorvastatin [Lipitor] 20 mg PO HS 01/16/18 02/04/18 Carbidopa/Levodopa ER 50/200 1 tab PO 5XD 01/16/18 02/04/18 [Sinemet ER 50-200 Tab] Cyanocobalamin (Vitamin B-12) 500 mcg PO DAILY 01/16/18 01/16/18 [Vitamin B-12] Entacapone [Comtan] 200 mg PO QID 01/16/18 02/04/18 Metoprolol Tartrate [Lopressor] 25 mg PO BID 01/16/18 02/04/18 hydrOXYzine HCl [Hydroxyzine HCl] 10 mg PO HS 01/16/18 02/04/18 Previous Rx's Medication Instructions Recorded Docusate [Colace] 100 mg PO BID capsule 01/18/18 Enoxaparin [Lovenox] 40 mg SQ 0600 #9 syringe 01/18/18 Multivit/Ca/Min/Fe/FA [Thera M 1 tab PO DAILY tablet 01/18/18 Plus] Allergies Allergy/AdvReac Type Severity Reaction Status Date / Time metoclopramide [From Reglan] AdvReac Vomiting Verified 01/16/18 03:35 Penicillins AdvReac Vomiting Verified 01/16/18 03:35 All systems ED: reviewed and negative except as stated. Review of Systems: As Per HPI Past Medical History - Past Medical History Medical history: Reports: atrial fibrillation, hyperlipidemia, hypertension, other - Social History Smoking Status: Never smoker Smokeless Tobacco Status: No Alcohol use: Reports: none Drug use: Reports: none Physical Exam Vital Signs Reviewed General: Patient is alert, oriented, and in no acute distress. Head: atraumatic, normocephalic Eye: normal appearance, PERRL, EOMI, no scleral icterus, no conjunctival injection ENT: mucous membranes moist, normal external ear exam Neck: normal inspection, trachea midline, full ROM Chest: normal inspection, symmetric chest rise Respiratory: Good respiratory effort. Bilateral breath sounds are clear without wheezing, crackles, or rhonchi. Cardiovascular: Regular rate and rhythm. No clicks, rubs, gallops, or murmors. Normal heart sounds. Abdomen: Bowel sounds present normoactive x-4 quadrants. Abdomen is soft, nondistended, and nontender. No guarding or rebound. Musculoskeletal: Spontaneously moving all extremities. Sporadic spasms in hypertonicity consistent with Parkinson's. Skin: warm, dry. 5-6 cm left posterior lateral hip incision is mostly closed with approximately 1 cm in the middle of the incision that is slightly open; has no discharge. Surrounds skin is erythematous. Scant yellow/serosanguineous fluid on overlying bandaging. Neuro: Alert and oriented x4. Sensation light touch intact. Psych: Patient's affect is appropriate for situation. Course Course Narrative: Clinically suspect serous sanguinous incisional drainage. Will draw labs and CT left hip with IV contrast looking for evidence of postoperative infection. Serum hematology is unremarkable. Patient has no leukocytosis. Serum chemistries unremarkable. CT left hip with contrast shows a large fluid collection on the posterior aspect of the anterior compartment thigh. Radiology has concern for seroma versus abscess. Clinical suspicion is seroma given the serosanguineous description by patient and daughter as well as the serosanguineous appearance on bandaging as well as lack of leukocytosis, lack of hip pain, lack of wound dehiscence, and lack of systemic symptoms such as fever or tachycardia. Even so, we will need to aspirate the patient's hip. I discussed the patient with on-call orthopedics, Dr. Salgado. He will be seeing the patient as consult tomorrow morning to perform an aspiration. Concern of aspirating with in emergency department given her recent surgery as well as the presence of the prosthesis. We do not want to push infection to be periprosthetic by tapping in the Emergency department. I discussed the above with the admitting hospitalist, Dr. Jiménez. She agrees to accept the patient with orthopedic consult. She requests one dose of vancomycin with blood cultures. I will order this. Vital Signs Temperature 98.1 F 02/04/18 15:29 Pulse Rate 68 02/04/18 15:29 Respiratory Rate 18 02/04/18 15:29 Blood Pressure 147/89 02/04/18 15:29 O2 Sat by Pulse Oximetry 98 02/04/18 15:29 Temperature 98.1 F 02/04/18 15:29 Pulse Rate 68 02/04/18 15:29 Respiratory Rate 18 02/04/18 15:29 Blood Pressure 147/89 02/04/18 15:29 O2 Sat by Pulse Oximetry 98 02/04/18 15:29 Oxygen Delivery Oxygen Delivery Room Air Medical Decision Making - Lab Data Result diagrams: 02/04/18 16:03 02/04/18 16:03 Lab Results 02/04/18 02/04/18 Range/Units 16:03 16:03 WBC 5.3 (4.3-11.1) K/mcL RBC 3.87 (3.82-4.97) M/mcL Hgb 10.9 L (11.5-15.4) g/dL Hct 35.7 (35.3-44.9) % MCV 92.2 (83.0-100.0) fL MCH 28.2 (28.0-33.3) pg MCHC 30.5 L (31.6-35.5) g/dL RDW 15.8 H (11.5-14.5) % Plt Count 298 (140-400) K/mcL MPV 9.3 L (9.4-12.4) fL Immature Gran % 0.8 (0-4) % Seg Neutrophils % 70.4 % Lymphocytes % 16.9 % Monocytes % 9.4 % Eosinophils % 2.3 % Basophils % 0.2 % Neutrophils # 3.8 (1.6-8.9) K/mcL Lymphocytes # 0.9 (0.6-4.6) K/mcL Monocytes # 0.5 (0.0-1.3) K/mcL Eosinophils # 0.1 (0.0-0.6) K/mcL Basophils # 0.0 (0.0-0.2) K/mcL Sodium 135 L (136-145) mEq/L Potassium 3.6 (3.5-5.1) mEq/L Chloride 100 (98-107) mEq/L Carbon Dioxide 24 (23-29) mEq/L BUN 12 (8-23) mg/dL Creatinine 0.85 (0.60-1.20) mg/dL Est GFR ( Amer) > 60 (> 60) Est GFR (Non-Af Amer) > 60 (> 60) BUN/Creatinine Ratio 14 (6-26) Glucose 95 (70-105) mg/dL Calculated Osmolality 280 (280-300) Calcium 9.1 (8.6-10.3) mg/dL Attestation Statement - Attestation Attestation: I examined this patient and my medical decision-making was reviewed with the Resident Physician. I agree with the documented findings, disposition and treatment plan as described except to the extent set forth below. Findings consistent with hip seroma versus abscess. Discussed case with orthopedics. We will admit for surgical drainage tomorrow. Patient will be started on antibiotics.
[2018-02-04 16:22] LABS: Basophils % 0.2 %; Eosinophils # 0.1 K/mcL (0.0-0.6); Eosinophils % 2.3 %; Hematocrit 35.7 % (35.3-44.9); Hemoglobin 10.9 g/dL (11.5-15.4); Immature Granulocytes % 0.8 % (0-4); Lymphocytes # 0.9 K/mcL (0.6-4.6); Lymphocytes % 16.9 %; Mean Corpuscular HGB Conc 30.5 g/dL (31.6-35.5); Mean Corpuscular Hemoglobin 28.2 pg (28.0-33.3); Mean Corpuscular Volume 92.2 fL (83.0-100.0); Mean Platelet Volume 9.3 fL (9.4-12.4); Monocytes # 0.5 K/mcL (0.0-1.3); Monocytes % 9.4 %; Neutrophils # 3.8 K/mcL (1.6-8.9); Platelet Count 298 K/mcL (140-400); Red Blood Count 3.87 M/mcL (3.82-4.97); Red Cell Distribution Width 15.8 % (11.5-14.5); Segmented Neutrophils % 70.4 %
[2018-02-04 16:40] LABS: BUN/Creatinine Ratio 14 (6-26); Blood Urea Nitrogen 12 mg/dL (8-23); Calcium 9.1 mg/dL (8.6-10.3); Carbon Dioxide 24 mEq/L (23-29); Chloride 100 mEq/L (98-107); Glucose 95 mg/dL (70-105); Osmolality,Calculated 280 (280-300); Potassium 3.6 mEq/L (3.5-5.1); Sodium 135 mEq/L (136-145); eGFR For Non-African Americans > 60 (> 60)
[2018-02-04] MEDS ORDERED: Acetaminophen 325 MG TABLET PO PRN (18:12)
[2018-02-04] MEDS ORDERED: Naloxone 0.4 MG/ML INJ IVP PRN (18:12)
[2018-02-04] MEDS ORDERED: *HR* HYDROcodone/Acet 5/325 mg TABLET PO PRN (18:12)
--- NOTE | 2018-02-04 18:18 | Internal Med History&Physical ---
Date of Encounter: 02/04/18 Time of Encounter: 18:15 Internal Medicine - H&P: HPI Chief complaint: Discharge from wound Admitted From: Long-term Nursing Facility Plans for Post Hospital Care: Transfer Inp Rehab Fac History of present illness: Ms. Machado is a 72 year old female with Parkinson's disease, who was recently di scharged from this facility status post left total arthroplasty 19 days ago. 2 days ago, nabeel were removed from the incision as outpatient, and the patient was returned to the longterm facility. She represented to the ER today with complaints of copious clear discharge from the wound. According to chart, they have drained about a gallon . No family at bedside during evaluation, patient is fairly stable and in no form of distress, she denies fever or chills, she denies pain at the site of surgery unless pinched, she denies chest pain, shortness of breath, nausea, vomiting, abdominal pain, fever, diarrhea. She was just treated for urinary tract infection with Bactrim from the nursing facility. Labs and workup. Unremarkable She remains afebrile here CAT scan showed fluid collection surrounding incision and prosthesis likely seroma versus abscess. The patient will be admitted inpatient for evaluation for seroma, it is unlikely that the patient has an infection at this time. Orthopedic surgery has been consulted The patient has no advance directives, and she is full code. Past Med Surg Social Fam HX - Past Medical History Medical history: atrial fibrillation, hyperlipidemia, hypertension, other Additional medical history: parkinsons - Past Surgical History Additional surgical history: tubal ligation, salpingectomy, right middle and index finger reattachment, adenoids - Social History Smoking Status: Never smoker Smokeless Tobacco Status: No Alcohol use: none Drug use: none - Family History Father Living Status: Hx Family Neurologic Disorders: Yes (parkinsons) Internal Medicine - H&P: Meds Amantadine HCl [Amantadine] 100 mg PO TID 01/16/18 [History] Aspirin Enteric Coated [Aspirin EC] 81 mg PO DAILY 01/16/18 [History] Atorvastatin [Lipitor] 20 mg PO HS 01/16/18 [History] Carbidopa/Levodopa ER 50/200 [Sinemet ER 50-200 Tab] 1 tab PO 5XD 01/16/18 [History] Cyanocobalamin (Vitamin B-12) [Vitamin B-12] 500 mcg PO DAILY 10/29/18 [History] Entacapone [Comtan] 200 mg PO QID 01/16/18 [History] Metoprolol Tartrate [Lopressor] 25 mg PO BID 01/16/18 [History] Venlafaxine HCl [Venlafaxine HCl ER] 150 mg PO DAILY 01/16/18 [History] hydrOXYzine HCl [Hydroxyzine HCl] 10 mg PO HS 01/16/18 [History] Docusate [Colace] 100 mg PO BID capsule 01/18/18 [Rx] Enoxaparin [Lovenox] 40 mg SQ 0600 #9 syringe 01/18/18 [Rx] Multivit/Ca/Min/Fe/FA [Thera M Plus] 1 tab PO DAILY tablet 01/18/18 [Rx] Allergy/AdvReac Type Severity Reaction Status Date / Time metoclopramide [From Reglan] AdvReac Vomiting Verified 01/16/18 03:35 Penicillins AdvReac Vomiting Verified 01/16/18 03:35 All Systems PM: A 10-system review of systems was performed and is negative for pertinent findings except as documented above in the HPI. - Constitutional Vitals: Temp Pulse Resp BP Pulse Ox 98.1 F 68 18 147/89 98 02/04/18 15:29 02/04/18 15:29 02/04/18 15:29 02/04/18 15:29 02/04/18 15:29 Exam: VSS, Stable Gen: Calm, not in distress, speaks full sentences HEENT: Moist oral mucosa, sclera anicteric, not pale Chest: Equal chest movement bilaterally REsp: CTAB, diminished breath sound, likely due to body habitus Heart: S1, S2, only, no m/g/r Abdomen: Obese, soft, not tender, BS present in al quadrants Extremities: LEft hip lateral incision site with visible subcut swelling, mild erythema, not tender, gauze on wound is minimally soaked with serous fluid, no purulent discharge noted, extremity is neurovascularly intact distally. , no pedal edema, pulses present bilaterally Neuro: AAOX3, no speech deficits, moves all extremities equally, no facial paralysis Psych: Affect is appropriate Internal Med - H&P Results - Labs CBC & Chem 7: 02/04/18 16:03 02/04/18 16:03 Labs: Short CBC 02/04/18 Range/Units 16:03 WBC 5.3 (4.3-11.1) K/mcL Hgb 10.9 L (11.5-15.4) g/dL Hct 35.7 (35.3-44.9) % Plt Count 298 (140-400) K/mcL Neutrophils # 3.8 (1.6-8.9) K/mcL BMP 02/04/18 16:03 Sodium 135 L Potassium 3.6 Chloride 100 Carbon Dioxide 24 BUN 12 Creatinine 0.85 Glucose 95 Calcium 9.1 - Impressions ITS Impressions Lower Extremity CT 02/04/18 15:51 IMPRESSION: 1. Large (approximately 17 x 2 x 5 cm) fluid collection extending along the posterior aspect of the anterior thigh compartment fascia. Considerations include abscess and seroma. Consider aspiration. 2. Skin thickening and subcutaneous stranding overlying the lateral left hip, consider cellulitis. 3. Small seroma or abscess involving the left gluteus valerie muscle measuring approximately 2 x 4 x 3 cm. D/ / 02/04/2018 17:43:26 Roland Kent MD / nadia Interpreting Provider: Roland Kent MD - Assessment and plan (1) S/P hip replacement Current Visit: Yes Status: Acute Assessment and plan: As below, ortho eval Pain control and DVT prophylaxis Bed rest Qualifiers: Laterality: left Qualified Code(s): Z96.642 - Presence of left artificial hip joint (2) Seroma Current Visit: Yes Status: Acute Assessment and plan: Left hip CT: CT/CT LE LT w con IMPRESSION: 1. Large (approximately 17 x 2 x 5 cm) fluid collection extending along the posterior aspect of the anterior thigh compartment fascia. Considerations include abscess and seroma. Consider aspiration. 2. Skin thickening and subcutaneous stranding overlying the lateral left hip, consider cellulitis. 3. Small seroma or abscess involving the left gluteus valerie muscle measuring approximately 2 x 4 x 3 cm. -Ortho surgery consulted for aspiration -Recommend to send for culture -Patient is currently not septic, no fever, no leukocytosis, incisions intact -Received one dose Vanco -Will await cultures for further antibiotics recommendation -Consider continuing Vanco if patient becomes septic (3) Parkinsons Current Visit: Yes Status: Chronic Assessment and plan: Resume home meds (4) Hypertension Current Visit: Yes Status: Chronic Assessment and plan: Continue home meds Qualifiers: Hypertension type: essential hypertension Qualified Code(s): I10 - Essential (primary) hypertension (5) DVT prophylaxis Current Visit: Yes Status: Acute Assessment and plan: SQ heparin - Time Spent With Patient Total time spent is greater than 50% in coordination of care (as documented) at patient's floor/unit and/or counseling patient:
[2018-02-04] MEDS: Carbidopa/Levodopa ER 50/200 TABLET PO SCH (23:13)
[2018-02-05] MEDS: Carbidopa/Levodopa ER 50/200 TABLET PO SCH ×5 (01:25→20:17)
[2018-02-05 03:44] LABS: Basophils % 0.2 %; Eosinophils # 0.2 K/mcL (0.0-0.6); Eosinophils % 4.2 %; Hematocrit 30.5 % (35.3-44.9); Immature Granulocytes % 0.6 % (0-4); Lymphocytes # 0.9 K/mcL (0.6-4.6); Mean Corpuscular HGB Conc 30.5 g/dL (31.6-35.5); Mean Corpuscular Hemoglobin 28.1 pg (28.0-33.3); Mean Corpuscular Volume 92.1 fL (83.0-100.0); Mean Platelet Volume 9.3 fL (9.4-12.4); Monocytes # 0.5 K/mcL (0.0-1.3); Monocytes % 10.8 %; Neutrophils # 3.4 K/mcL (1.6-8.9); Platelet Count 265 K/mcL (140-400); Red Blood Count 3.31 M/mcL (3.82-4.97); Red Cell Distribution Width 15.8 % (11.5-14.5); Segmented Neutrophils % 67.2 %
[2018-02-05 03:57] LABS: Hemoglobin 9.3 g/dL (11.5-15.4)
[2018-02-05 04:04] LABS: BUN/Creatinine Ratio 13 (6-26); Blood Urea Nitrogen 9 mg/dL (8-23); Calcium 8.3 mg/dL (8.6-10.3); Carbon Dioxide 26 mEq/L (23-29); Chloride 102 mEq/L (98-107); Glucose 87 mg/dL (70-105); Osmolality,Calculated 282 (280-300); Potassium 3.5 mEq/L (3.5-5.1); Sodium 137 mEq/L (136-145); eGFR For Non-African Americans > 60 (> 60)
[2018-02-05] MEDS: *HR* Enoxaparin 40 MG/0.4 ML SYRINGE SQ SCH (07:15)
--- NOTE | 2018-02-05 08:26 | Orthopedic Consult Note ---
Date of Encounter: 02/05/18 Time of Encounter: 08:23 Assessment and Plan (1) Fluid collection at surgical site Current Visit: Yes Status: Acute At this point the patient has at least a superficial wound infection and my recommendation is to continue IV antibiotics and I discussed this with the hospitalist. Dr. Castanon will see in the morning to evaluate further regarding continued observation versus surgical drainage. In the meantime she can eat today but make nothing by mouth after midnight. Adhere to the posterior hip precautions. Qualifiers: Encounter type: initial encounter Qualified Code(s): T88.8XXA - Other specified complications of surgical and medical care, not elsewhere classified, initial encounter History of Present Illness HPI: Ms. Machado is a 72 year old female who comes in and is admitted to the hospitalist due to left hip drainage. She had a hip hemiarthroplasty about [address] Castanon. She was seen in the office on Tuesday by Madalyn Ramirez, physician assistant coach, and was started on Bactrim due to concerns for superficial wound infection. The patient came to the emergency department due to copious drainage and was subsequently admitted to the hospitalist after the CT scan obtained demonstrated a fluid collection. She did receive vancomycin in the emergency department. On my evaluation the patient denies any significant left hip pain. No new injuries or complaints. She denies numbness, tingling, or any other associated signs or symptoms or modifying factors. Past Med Surg Social Fam HX - Past Medical History Medical history: atrial fibrillation, hyperlipidemia, hypertension, other Additional medical history: parkinsons Psychiatric history: no psych history - Past Surgical History Additional surgical history: tubal ligation, salpingectomy, right middle and index finger reattachment, adenoids - Social History Smoking Status: Never smoker Smokeless Tobacco Status: No Alcohol use: none Drug use: none - Family History Father Living Status: Hx Family Neurologic Disorders: Yes (parkinsons) Medications and Allergies Amantadine HCl [Amantadine] 100 mg PO TID 01/16/18 [History] Aspirin Enteric Coated [Aspirin EC] 81 mg PO DAILY 01/16/18 [History] Atorvastatin [Lipitor] 20 mg PO HS 01/16/18 [History] Carbidopa/Levodopa ER 50/200 [Sinemet ER 50-200 Tab] 1 tab PO 5XD 01/16/18 [History] Cyanocobalamin (Vitamin B-12) [Vitamin B-12] 500 mcg PO DAILY 01/16/18 [History] Entacapone [Comtan] 200 mg PO QID 01/16/18 [History] Metoprolol Tartrate [Lopressor] 25 mg PO BID 01/16/18 [History] hydrOXYzine HCl [Hydroxyzine HCl] 10 mg PO HS 01/16/18 [History] Docusate [Colace] 100 mg PO BID capsule 01/18/18 [Rx] Enoxaparin [Lovenox] 40 mg SQ 0600 #9 syringe 01/18/18 [Rx] Multivit/Ca/Min/Fe/FA [Thera M Plus] 1 tab PO DAILY tablet 01/18/18 [Rx] Allergy/AdvReac Type Severity Reaction Status Date / Time metoclopramide [From Reglan] AdvReac Vomiting Verified 01/16/18 03:35 Penicillins AdvReac Vomiting Verified 01/16/18 03:35 All Systems Reviewed: Constitutional and musculoskeletal systems were reviewed and are negative unless otherwise stated in history of present illness. Physical Exam - Constitutional Vitals: Temp Pulse Resp BP Pulse Ox 99.0 F 75 16 103/58 99 02/05/18 03:32 02/05/18 03:32 02/05/18 03:32 02/05/18 03:32 02/05/18 03:32 CONSTITUTIONAL -Vitals reviewed -The patient is well developed, well nourished, well groomed PSYCHIATRIC -Fully alert and oriented -Pleasant mood LEFT LOWER EXTREMITY The incision has healed proximally however distally there is a small draining sinus with associated erythema. Mild tenderness. No significant pain with passive motion of the hip. She can dorsiflex and plantarflex the ankle and toes and the foot is sensate and well-perfused. Diagnostic Imaging: I did personally review and interpret CT scan of the left hip which does show a small fluid collection superficial to the fascia Results - Labs Result Diagrams: 02/05/18 03:11 02/05/18 03:11 Labs: Abnormal lab results RBC 3.31 M/mcL (3.82-4.97) L 02/05/18 03:11 Hgb 9.3 g/dL (11.5-15.4) L D 02/05/18 03:11 Hct 30.5 % (35.3-44.9) L 02/05/18 03:11 MCHC 30.5 g/dL (31.6-35.5) L 02/05/18 03:11 RDW 15.8 % (11.5-14.5) H 02/05/18 03:11 MPV 9.3 fL (9.4-12.4) L 02/05/18 03:11 Calcium 8.3 mg/dL (8.6-10.3) L 02/05/18 03:11 H & H 02/04/18 02/05/18 Range/Units 16:03 03:11 Hgb 10.9 L 9.3 L D (11.5-15.4) g/dL Hct 35.7 30.5 L (35.3-44.9) % All other labs normal. Consult Discharge Plan - Plan Referrals: Soila Sagastume, [employer] [Primary Care Provider] -
[2018-02-05] MEDS: Aspirin Enteric Coated 81 MG Tablet PO SCH (09:05)
[2018-02-05] MEDS: Piperacillin/Tazobactam 3.375 GM in 0.9 % Sodium Chloride Mini Bag 100 ML IVPB SCH ×2 (10:37→16:41)
--- NOTE | 2018-02-05 12:13 | Internal Med Progress Note ---
Hospitalist Progress Note - Encounter Date of Encounter: 02/05/18 Time of Encounter: 12:10 - Subjective Interval History: I have seen and evaluated the patient a bedside. Patient reports doing well, but reports having discomfort at the left hip. denies nausea, vomiting, fever or chills. - Exam Vitals: Temp Pulse Resp BP Pulse Ox 98.2 F 62 16 107/56 98 02/05/18 11:37 02/05/18 11:37 02/05/18 11:37 02/05/18 11:37 02/05/18 11:37 Exam: Vitals: Reviewed. General: Alert and orientedx4. Mild distress due to left hip pain/discomfort. Skin: serous drainage at the left hip/surgical site. HEENT: EOM, pupils equal, round and reactive. Cardiovascular: RRR, Normal S1 & S2, no rubs, murmurs or gallops. No JVD. Pulse regular. Lungs: Clear to auscultation bilaterally, no wheezes or crackles. Abdomen: Soft, non-tender, no rigidity. Extremities: No edema. Neurological: Normal cognition and motor skills. Rest of the physical exam is non contributory - Assessment and Plan (1) Fluid collection at surgical site Current Visit: Yes Status: Acute Assessment and Plan: Possible seroma. cannot r/o septic arthritis. superficial skin infection at surgical site. Plan discussed with Ortho. Will resume broad spectrum antibiotics Vancomycin per pharmacy dosing and Pipperacillin/tazobactam 3.375mg/IV Q8HR Patient schedule for OR revision tomorrow. (2) S/P hip replacement Current Visit: Yes Status: Acute Assessment and Plan: Plan of care as above On [place] 5-325mg/PO 1 tab Q6HR/PRN for pain control (3) Parkinsons Current Visit: Yes Status: Chronic Assessment and Plan: Continue home medication. Patient is on amantadine 100 mg by mouth 3 times a day, carbidopa/levodopa 50- 200 1 tab/PO 5XD. On entacapone 200mg/PO QiD (4) Hypertension Current Visit: Yes Status: Chronic Assessment and Plan: Blood pressures well controlled. She is on metoprolol 25 mg by mouth twice a day. (5) Hyperlipidemia Current Visit: Yes Status: Chronic Assessment and Plan: Continue atorvastatin 20 mg by mouth daily. Aspirin 81 mg by mouth daily. DVT Prophylaxis: On enoxaparin 40 mg subcutaneous daily. - Summary of Assessment and Plan Summary of Assessment and Plan: Patient scheduled for left hip replacement site revision tomorrow. - Time Spent with Patient Total time spent is greater than 50% in coordination of care (as documented) at patient's floor/unit and/or counseling patient: Greater than 35 minutes (40) Plan of Care Discussed with: patient (and the nurse.) Internal Medicine: Result - Labs CBC & Chem 7: 02/05/18 03:11 02/05/18 03:11 Labs: Short CBC 02/04/18 02/05/18 Range/Units 16:03 03:11 WBC 5.3 5.0 (4.3-11.1) K/mcL Hgb 10.9 L 9.3 L D (11.5-15.4) g/dL Hct 35.7 30.5 L (35.3-44.9) % Plt Count 298 265 (140-400) K/mcL Neutrophils # 3.8 3.4 (1.6-8.9) K/mcL BMP 02/04/18 02/05/18 16:03 03:11 Sodium 135 L 137 Potassium 3.6 3.5 Chloride 100 102 Carbon Dioxide 24 26 BUN 12 9 Creatinine 0.85 0.68 Glucose 95 87 Calcium 9.1 8.3 L - Impressions Impressions Lower Extremity CT 02/04/18 15:51 IMPRESSION: 1. Large (approximately 17 x 2 x 5 cm) fluid collection extending along the posterior aspect of the anterior thigh compartment fascia. Considerations include abscess and seroma. Consider aspiration. 2. Skin thickening and subcutaneous stranding overlying the lateral left hip, consider cellulitis. 3. Small seroma or abscess involving the left gluteus valerie muscle measuring approximately 2 x 4 x 3 cm. D/ / 02/04/2018 17:43:26 Roland Kent MD / nadia Interpreting Provider: Roland Kent MD Consult Discharge Plan - Plan Referrals: Soila Sagastume, CORPOR[employer] SALES MANAGER [Primary Care Provider] - (1) Fluid collection at surgical site Qualifiers: Encounter type: initial encounter Qualified Code(s): T88.8XXA - Other specified complications of surgical and medical care, not elsewhere classified, initial encounter (2) S/P hip replacement Qualifiers: Laterality: left Qualified Code(s): Z96.642 - Presence of left artificial hip joint (4) Hypertension Qualifiers: Hypertension type: essential hypertension Qualified Code(s): I10 - Essential (primary) hypertension
[2018-02-06] MEDS: Piperacillin/Tazobactam 3.375 GM in 0.9 % Sodium Chloride Mini Bag 100 ML IVPB SCH ×3 (01:00→17:45)
[2018-02-06] MEDS: Carbidopa/Levodopa ER 50/200 TABLET PO SCH ×5 (01:01→21:46)
--- NOTE | 2018-02-06 07:27 | Orthopedics Progress Note ---
Date of Encounter: 02/06/18 Time of Encounter: 07:26 Subjective Interval history: Patient status post left hip aaron-, with superficial wound infection. Patient responding to antibiotic therapy. We will apply a christi dressing today. Continue to monitor. Objective Vital signs: Vital Signs Temp Pulse Resp BP Pulse Ox 02/06/18 06:45 98.2 F 79 16 112/71 94 02/06/18 03:49 98.3 F 74 16 106/57 98 02/05/18 23:33 98.8 F 16 64 97/60 99 02/05/18 19:53 99.1 F 76 16 100/62 99 02/05/18 16:53 98.0 F 65 17 105/67 99 02/05/18 11:37 98.2 F 62 16 107/56 98 Intake and Output 02/05/18 02/05/18 02/06/18 15:59 23:59 07:59 Intake Total 440 / 440 100 / 100 Output Total 250 / 250 Balance 440 / 440 -150 / -150 Intake: IV Fluids 350 / 350 100 / 100 Zosyn 3.375 GM In 0.9 % Sodium 100 / 100 100 / 100 Chloride (Mini-Bag +) 100 ML @ 25 mls/hr IVPB Q8H [facility] Rx#: [id number] Vancocin 1,000 MG In 0.9 % 250 / 250 Sodium Chloride 250 ML @ 167 mls/hr IVPB Q12H [facility] Rx#: [id number] Oral 90 / 90 Output: Catheter 250 / 250 Other: Meal Breakfast Percent of Meal Consumed 20% Weight 62.2 kg Patient Weight 02/06/18 23:59 Weight 62.2 kg - Labs CBC & BMP: 02/05/18 03:11 02/05/18 03:11 Labs: Abnormal lab results RBC 3.31 M/mcL (3.82-4.97) L 02/05/18 03:11 Hgb 9.3 g/dL (11.5-15.4) L D 02/05/18 03:11 Hct 30.5 % (35.3-44.9) L 02/05/18 03:11 MCHC 30.5 g/dL (31.6-35.5) L 02/05/18 03:11 RDW 15.8 % (11.5-14.5) H 02/05/18 03:11 MPV 9.3 fL (9.4-12.4) L 02/05/18 03:11 Calcium 8.3 mg/dL (8.6-10.3) L 02/05/18 03:11 Consult Discharge Plan - Plan Referrals: Soila Sagastume CNP [Primary Care Provider] -
[2018-02-06] MEDS: Aspirin Enteric Coated 81 MG Tablet PO SCH (08:03)
[2018-02-06] MEDS: *HR* Enoxaparin 40 MG/0.4 ML SYRINGE SQ SCH (08:09)
--- NOTE | 2018-02-06 10:40 | Internal Med Progress Note ---
Hospitalist Progress Note - Encounter Date of Encounter: 02/06/18 Time of Encounter: 10:37 - Subjective Interval History: I have seen and evaluated the patient a bedside. Reports mild discomfort on the left hip. reports that the drainage from the surgical site has decreased. denies chills, nausea or vomiting. - Exam Vitals: Temp Pulse Resp BP Pulse Ox 98.2 F 79 16 112/71 94 02/06/18 06:45 02/06/18 06:45 02/06/18 06:45 02/06/18 06:45 02/06/18 06:45 Exam: Vitals: Reviewed. General: Alert and orientedx4. Mild distress due to left hip pain/discomfort. Skin: serous drainage at the left hip/surgical site, decreased. erythema at the surgical site improving. Cardiovascular: RRR, Normal S1 & S2, no rubs, murmurs or gallops. No JVD. Pulse regular. Lungs: Clear to auscultation bilaterally, no wheezes or crackles. Abdomen: Soft, non-tender, no rigidity. NABS in all 4 quadrants. Extremities: No edema. Neurological: Normal cognition. Intentional and resting tremors. Rest of the physical exam is non contributory - Assessment and Plan (1) Fluid collection at surgical site Current Visit: Yes Status: Acute Assessment and Plan: with superficial skin infection. Plan serous secretion from surgical site has decreased as well as the erythema Ortho recommended conservative management with IV antibiotics On vancomycin per pharmacy dosing plus piperacillin/tazobactam 3.375mg/IV Q8HRs Knapp 5-325mg/PO 1tab Q6HR PRN Ortho recommendations appreciated. (2) S/P hip replacement Current Visit: Yes Status: Acute Assessment and Plan: plan of care as above. (3) Parkinsons Current Visit: Yes Status: Chronic Assessment and Plan: continue home meds; amantadine 100mg/PO TID carbidopa/levodopa 1 tab?PO 5xd entacapone 200mg/PO QiD (4) Hypertension Current Visit: Yes Status: Chronic Assessment and Plan: BP well controlled. On metoprolol 25mg/PO BID (5) Hyperlipidemia Current Visit: Yes Status: Chronic Assessment and Plan: Continue atorvastatin 20mg/PO daily. On aspirin 81mg/PO daily. DVT Prophylaxis: No chemical DVT prophylaxis per ortho recommendations mechanical DVT prophylaxis with intermittent pneumatic compressions b/l. - Summary of Assessment and Plan Summary of Assessment and Plan: Patient to remain in the hospital due to superficial infection at the surgical site s/h left hip replacement. presenting with serous secretion. On broad spectrum antibiotics. Potential discharge tomorrow. - Time Spent with Patient Total time spent is greater than 50% in coordination of care (as documented) at patient's floor/unit and/or counseling patient: Greater than 35 minutes (40) Plan of Care Discussed with: patient (and the nurse.) Internal Medicine: Result - Labs CBC & Chem 7: 02/05/18 03:11 02/05/18 03:11 - Impressions Impressions Lower Extremity CT 02/04/18 15:51 IMPRESSION: 1. Large (approximately 17 x 2 x 5 cm) fluid collection extending along the posterior aspect of the anterior thigh compartment fascia. Considerations include abscess and seroma. Consider aspiration. 2. Skin thickening and subcutaneous stranding overlying the lateral left hip, consider cellulitis. 3. Small seroma or abscess involving the left gluteus valerie muscle measuring approximately 2 x 4 x 3 cm. D/ / 02/04/2018 17:43:26 Roland Kent MD / nadia Interpreting Provider: Roland Kent MD Consult Discharge Plan - Plan Referrals: Soial Sagastume INFORMATICS SCIENTIST [Primary Care Provider] - __ (1) Fluid collection at surgical site Qualifiers: Encounter type: initial encounter Qualified Code(s): T88.8XXA - Other specified complications of surgical and medical care, not elsewhere classified, initial encounter (2) S/P hip replacement Qualifiers: Laterality: left Qualified Code(s): Z96.642 - Presence of left artificial hip joint (4) Hypertension Qualifiers: Hypertension type: essential hypertension Qualified Code(s): I10 - Essential (primary) hypertension (5) Hyperlipidemia Qualifiers: Hyperlipidemia type: unspecified Qualified Code(s): E78.5 - Hyperlipidemia, unspecified
[2018-02-06] MEDS: *HR* FentaNYL PATCH 25 MCG PATCH TD SCH (17:46)
[2018-02-07] MEDS: Carbidopa/Levodopa ER 50/200 TABLET PO SCH ×5 (01:56→21:03)
[2018-02-07] MEDS: Piperacillin/Tazobactam 3.375 GM in 0.9 % Sodium Chloride Mini Bag 100 ML IVPB SCH ×3 (01:56→16:43)
[2018-02-07 06:56] LABS: BUN/Creatinine Ratio 11 (6-26); Blood Urea Nitrogen 8 mg/dL (8-23); Calcium 8.7 mg/dL (8.6-10.3); Carbon Dioxide 26 mEq/L (23-29); Chloride 103 mEq/L (98-107); Glucose 102 mg/dL (70-105); Magnesium 1.7 mg/dL (1.6-2.6); Osmolality,Calculated 283 (280-300); Phosphorous 3.3 mg/dL (2.7-4.5); Potassium 3.4 mEq/L (3.5-5.1); Sodium 137 mEq/L (136-145); eGFR For Non-African Americans > 60 (> 60)
[2018-02-07] MEDS: Aspirin Enteric Coated 81 MG Tablet PO SCH (09:14)
--- NOTE | 2018-02-07 17:40 | Orthopedics Progress Note ---
Date of Encounter: 02/07/18 Time of Encounter: 13:00 - Assessment and Plan (1) Fluid collection at surgical site Current Visit: Yes Status: Acute POW#3 s/p left hip hemiarthroplasty 01/16/18 CT showed large fluid collection at surgery site Roughly 25% saturation to the DARLINE dressing. Leave in place. May replace pad if >75% saturated. DARLINE applied on 02/06, will be good through 02/12. Continue with IV abx per hospitalist. Currently on vancomycin and zosyn. Will continue to monitor during admission. WBAT, continue with therapy. Follow up in [facility] office on 02/14/18 at 9:30am. Qualifiers: Encounter type: initial encounter Qualified Code(s): T88.8XXA - Other specified complications of surgical and medical care, not elsewhere classified, initial encounter Subjective Principal diagnosis: POW#3 s/p left hip hemiarthroplasty 01/16/18 Interval history: Patient has no new concerns today. States hip pain is minimal. She feels that the drainage has decreased significantly. Denies any fevers, chills, SOB or chest pain, no calf pain. Objective Vital signs: Vital Signs Temp Pulse Resp BP Pulse Ox 02/07/18 16:47 98.2 F 110 16 102/69 99 02/07/18 11:08 99.0 F 85 18 98/59 100 02/07/18 06:56 99.0 F 82 16 99/63 100 02/07/18 05:03 98.7 F 67 16 108/59 97 02/06/18 23:28 98.1 F 82 16 108/70 97 02/06/18 19:23 98.8 F 51 16 130/66 100 Intake and Output 02/07/18 02/07/18 02/07/18 07:59 15:59 23:59 Intake Total 350 / 350 880 / 880 Output Total 450 / 450 275 / 275 Balance -100 / -100 605 / 605 Intake: IV Fluids 250 / 250 200 / 200 Zosyn 3.375 GM In 0.9 % Sodium 200 / 200 Chloride (Mini-Bag +) 100 ML @ 25 mls/hr IVPB Q8H [facility] Rx#: [id number] Vancocin 1,000 MG In 0.9 % 250 / 250 Sodium Chloride 250 ML @ 167 mls/hr IVPB Q12H [facility] Rx#: [id number] Oral 100 / 100 680 / 680 Output: Catheter 450 / 450 275 / 275 Other: Meal Lunch Percent of Meal Consumed 50% Incision: draining (DARLINE dressing in place with roughly 25% saturation towards posterior end. Mild coloration to skin around the middle of the dressings however appears more from her laying on that side rather than erythema from infection. No calf tenderness to palpation. ) - Labs CBC & BMP: 02/05/18 03:11 02/07/18 05:45 Labs: Abnormal lab results RBC 3.31 M/mcL (3.82-4.97) L 02/05/18 03:11 Hgb 9.3 g/dL (11.5-15.4) L D 02/05/18 03:11 Hct 30.5 % (35.3-44.9) L 02/05/18 03:11 MCHC 30.5 g/dL (31.6-35.5) L 02/05/18 03:11 RDW 15.8 % (11.5-14.5) H 02/05/18 03:11 MPV 9.3 fL (9.4-12.4) L 02/05/18 03:11 Potassium 3.4 mEq/L (3.5-5.1) L 02/07/18 05:45 Vancomycin Trough 16 mcg/mL (5-10) H 02/06/18 20:39 Consult Discharge Plan - Plan Referrals: Soila Sagastume, DRUM DRIER [Primary Care Provider] -
--- NOTE | 2018-02-08 00:44 | Internal Med Progress Note ---
Hospitalist Progress Note - Encounter Date of Encounter: 02/07/18 Time of Encounter: 11:00 - Subjective Interval History: SUBJECTIVE: The patient feels pretty good. She has less discharge from left hip area wound. Denies chest pain and difficulty breathing. Denies abdominal pain, nausea and vomiting. She has normal urination. OBJECTIVE: Skin: Free of rash and discoloration. ENMT: Oral/pharyngeal mucosa is normal in appearance. Eyes: Sclera is white. There is no discharge from eyes. Respiratory: Normal breath sounds; no crackles or wheezes. CV: Heart is regular; no gallop or murmur. GI: Abdomen is soft and not tender. There is no palpable mass or visceromegaly. Neuro: There is no focal deficits. ADDITIONAL DATA: Potassium is 3.4; 3.5 yesterday. Creatinine is 0.72. ASSESSMENT AND PLAN: Superficial wound infection/collection of fluid in the area of surgical wound (status post left hip replacement). The patient is on IV vancomycin/IV Zosyn. See notes from orthopedic surgery. Parkinson's disease. Under control. We will continue Symmetrel with Sinemet and Comtan. Hypertension. Under control. To continue Lopressor. - Exam Vitals: Temp Pulse Resp BP Pulse Ox 98.0 F 74 16 95/60 95 02/07/18 22:50 02/07/18 22:50 02/07/18 22:50 02/07/18 22:50 02/07/18 22:50 Exam: xx - Assessment and Plan (1) Fluid collection at surgical site Current Visit: Yes Status: Acute (2) S/P hip replacement Current Visit: Yes Status: Acute (3) Parkinsons Current Visit: Yes Status: Chronic (4) Hypertension Current Visit: Yes Status: Chronic (5) Hyperlipidemia Current Visit: Yes Status: Chronic - Time Spent with Patient Total time spent is greater than 50% in coordination of care (as documented) at patient's floor/unit and/or counseling patient: Internal Medicine: Result - Labs CBC & Chem 7: 02/05/18 03:11 02/07/18 05:45 Labs: BMP 02/07/18 05:45 Sodium 137 Potassium 3.4 L Chloride 103 Carbon Dioxide 26 BUN 8 Creatinine 0.72 Glucose 102 Calcium 8.7 Consult Discharge Plan - Plan Referrals: Sagastume,Soila J, PROJECTOR OPERATOR [Primary Care Provider] - (1) Fluid collection at surgical site Qualifiers: Encounter type: initial encounter Qualified Code(s): T88.8XXA - Other specified complications of surgical and medical care, not elsewhere classified, initial encounter (2) S/P hip replacement Qualifiers: Laterality: left Qualified Code(s): Z96.642 - Presence of left artificial hip joint (4) Hypertension Qualifiers: Hypertension type: essential hypertension Qualified Code(s): I10 - Essential (primary) hypertension (5) Hyperlipidemia Qualifiers: Hyperlipidemia type: unspecified Qualified Code(s): E78.5 - Hyperlipidemia, unspecified
[2018-02-08] MEDS: Piperacillin/Tazobactam 3.375 GM in 0.9 % Sodium Chloride Mini Bag 100 ML IVPB SCH ×4 (01:07→16:49)
[2018-02-08] MEDS: Carbidopa/Levodopa ER 50/200 TABLET PO SCH ×6 (01:07→23:59)
--- NOTE | 2018-02-08 07:58 | Orthopedics Progress Note ---
Date of Encounter: 02/08/18 Time of Encounter: 07:56 Subjective Principal diagnosis: POW#3 s/p left hip hemiarthroplasty 01/16/18 Interval history: Patient with christi dressing changed today, wound evaluated with physician clinic assistant, reports improvement in erythema. Patient still with persistent drainage. Previous CT scan showed hematoma, versus seroma we will repeat CT scan consider aspiration by IR if persistent. New christi applied Objective Vital signs: Vital Signs Temp Pulse Resp BP Pulse Ox 02/08/18 06:35 98.0 F 75 16 129/73 98 02/08/18 03:45 97.6 F 71 16 97/64 98 02/07/18 22:50 98.0 F 74 16 95/60 95 02/07/18 21:00 87 116/76 02/07/18 18:37 97.5 F L 81 16 97/63 96 02/07/18 16:47 98.2 F 110 16 102/69 99 02/07/18 11:08 99.0 F 85 18 98/59 100 Intake and Output 02/07/18 02/07/18 02/08/18 15:59 23:59 07:59 Intake Total 880 / 880 840 / 840 100 / 100 Output Total 275 / 275 325 / 325 700 / 700 Balance 605 / 605 515 / 515 -600 / -600 Intake: IV Fluids 200 / 200 350 / 350 100 / 100 Zosyn 3.375 GM In 0.9 % Sodium 200 / 200 100 / 100 100 / 100 Chloride (Mini-Bag +) 100 ML @ 25 mls/hr IVPB Q8H [facility] Rx#: [id number] Vancocin 750 MG In 0.9 % Sodium 250 / 250 Chloride 250 ML @ 250 mls/hr IVPB Q12H [facility] Rx#:[id number] Oral 680 / 680 490 / 490 Output: Urine 400 / 400 Catheter 275 / 275 325 / 325 300 / 300 Other: Meal Lunch Dinner Percent of Meal Consumed 50% 40% Weight 62.1 kg Patient Weight 02/08/18 23:59 Weight 62.1 kg - Labs CBC & BMP: 02/05/18 03:11 02/07/18 05:45 Labs: Abnormal lab results RBC 3.31 M/mcL (3.82-4.97) L 02/05/18 03:11 Hgb 9.3 g/dL (11.5-15.4) L D 02/05/18 03:11 Hct 30.5 % (35.3-44.9) L 02/05/18 03:11 MCHC 30.5 g/dL (31.6-35.5) L 02/05/18 03:11 RDW 15.8 % (11.5-14.5) H 02/05/18 03:11 MPV 9.3 fL (9.4-12.4) L 02/05/18 03:11 Potassium 3.4 mEq/L (3.5-5.1) L 02/07/18 05:45 Vancomycin Trough 16 mcg/mL (5-10) H 02/06/18 20:39 Consult Discharge Plan - Plan Referrals: Soila Sagastume, ADRIAN [Primary Care Provider] -
[2018-02-08 08:46] LABS: INR 1.4; Prothrombin Time 15.4 Seconds (9.4-12.1)
[2018-02-08] MEDS: Aspirin Enteric Coated 81 MG Tablet PO SCH (09:12)
--- NOTE | 2018-02-08 11:07 | Event Note ---
Date of Encounter: 02/08/18 Time of Encounter: 11:06 CT scan: CT/CT hip LT wo con IMPRESSION: 1. Stable left hip arthroplasty without hardware complication. 2. Improving postoperative seromas or small hematomas. No definite abscess is appreciated. Plan to continue IV antibiotics - Vancomycin 1 gram q 12 hours, pharmacy to dose x 2-4 weeks. Weekly ESR, CRP, Vanc kinetics PICCO dressing in place, facility to change if > 75% saturated. Extra dressings will be given with discharge paperwork. Follow Total Hip precautions x 3 weeks. Follow up on Tuesday02/14/18
[2018-02-08] MEDS ORDERED: Lidocaine -MPF 1% 5 ML AMPUL INFILT ONE (15:45)
--- NOTE | 2018-02-08 23:25 | Internal Med Progress Note ---
Hospitalist Progress Note - Encounter Date of Encounter: 02/08/18 Time of Encounter: 19:00 - Subjective Interval History: SUBJECTIVE: The patient feels good. She is able to ambulate short distances with a walker/assistance. There is only a very small amount of discharge from her left hip surgical wound. Denies chest pain. Denies difficulty breathing, coughing and wheezing. OBJECTIVE: Skin: Free of rash and discoloration. ENMT: Oral/pharyngeal mucosa is normal in appearance. Eyes: Sclera is white. There is no discharge from eyes. Respiratory: Normal breath sounds; no crackles or wheezes. CV: Heart is regular; no gallop or murmur. GI: Abdomen is soft and not tender. There is no palpable mass or visceromegaly. Neuro: There is no focal deficits. ADDITIONAL DATA: We will repeat CBC and BMP tomorrow morning. ASSESSMENT AND PLAN: Superficial wound infection/collection of fluid in the area of surgical wound (status post left hip replacement). The patient is on IV vancomycin/IV Zosyn. See notes from orthopedic surgery. Parkinson's disease. Under control. We will continue Symmetrel with Sinemet and Comtan. Hypertension. Under control. To continue Lopressor. Disposition: A referral has been made to [facility]. She will continue IV vancomycin after the discharge for 24 weeks. - Exam Vitals: Temp Pulse Resp BP Pulse Ox 98.0 F 88 16 101/67 96 02/08/18 18:32 02/08/18 18:32 02/08/18 18:32 02/08/18 18:32 02/08/18 18:32 Exam: xx - Assessment and Plan (1) Fluid collection at surgical site Current Visit: Yes Status: Acute (2) S/P hip replacement Current Visit: Yes Status: Acute (3) Parkinsons Current Visit: Yes Status: Chronic (4) Hypertension Current Visit: Yes Status: Chronic (5) Hyperlipidemia Current Visit: Yes Status: Chronic - Time Spent with Patient Total time spent is greater than 50% in coordination of care (as documented) at patient's floor/unit and/or counseling patient: 25 - 35 minutes Plan of Care Discussed with: patient Internal Medicine: Result - Labs CBC & Chem 7: 02/05/18 03:11 02/07/18 05:45 - ABG Interpretation ABG results: PT/INR, D-dimer PT 15.4 Seconds (9.4-12.1) H 02/08/18 08:28 - Impressions Impressions Hip CT 02/08/18 09:30 IMPRESSION: 1. Stable left hip arthroplasty without hardware complication. 2. Improving postoperative seromas or small hematomas. No definite abscess is appreciated. D/ /08/2018 10:38:43 Jj Mesa MD / michael Interpreting Provider: Jj Mesa MD Chest X-Ray 02/08/18 15:44 IMPRESSION: Suboptimal LPO projection. Right upper extremity PICC tip overlies the mid superior vena cava level. No definite acute pulmonary disease; suboptimal inspiration for the exam. Calcific atherosclerotic disease aorta. D/ / Jarret Wall / Jarret Wall Interpreting Provider: Jarret Wall Consult Discharge Plan - Plan Referrals: Soila Sagastume, HEAVY TRUCK MECHANIC [Primary Care Provider] - Prescriptions: Vancomycin/0.9 % Sod Chloride [Vanco 1 Gram/250 ml-0.9% NaCl] 1 gm IV Q12H 14 Days #28 plast..bag (1) Fluid collection at surgical site Qualifiers: Encounter type: initial encounter Qualified Code(s): T88.8XXA - Other specified complications of surgical and medical care, not elsewhere classified, initial encounter (2) S/P hip replacement Qualifiers: Laterality: left Qualified Code(s): Z96.642 - Presence of left artificial hip joint (4) Hypertension Qualifiers: Hypertension type: essential hypertension Qualified Code(s): I10 - Essential (primary) hypertension (5) Hyperlipidemia Qualifiers: Hyperlipidemia type: unspecified Qualified Code(s): E78.5 - Hyperlipidemia, unspecified
[2018-02-09] MEDS: Piperacillin/Tazobactam 3.375 GM in 0.9 % Sodium Chloride Mini Bag 100 ML IVPB SCH ×3 (03:37→17:23)
[2018-02-09 04:03] LABS: Basophils % 0.4 %; Eosinophils # 0.2 K/mcL (0.0-0.6); Hemoglobin 9.8 g/dL (11.5-15.4); Lymphocytes # 1.2 K/mcL (0.6-4.6); Lymphocytes % 23.1 %; Mean Corpuscular HGB Conc 30.6 g/dL (31.6-35.5); Mean Corpuscular Hemoglobin 28.4 pg (28.0-33.3); Mean Corpuscular Volume 92.8 fL (83.0-100.0); Mean Platelet Volume 8.9 fL (9.4-12.4); Monocytes # 0.4 K/mcL (0.0-1.3); Monocytes % 7.8 %; Neutrophils # 3.3 K/mcL (1.6-8.9); Platelet Count 216 K/mcL (140-400); Red Blood Count 3.45 M/mcL (3.82-4.97); Red Cell Distribution Width 15.9 % (11.5-14.5); Segmented Neutrophils % 63.7 %
[2018-02-09 04:22] LABS: BUN/Creatinine Ratio 11 (6-26); Blood Urea Nitrogen 8 mg/dL (8-23); Calcium 8.3 mg/dL (8.6-10.3); Carbon Dioxide 28 mEq/L (23-29); Chloride 106 mEq/L (98-107); Glucose 87 mg/dL (70-105); Osmolality,Calculated 286 (280-300); Potassium 3.5 mEq/L (3.5-5.1); Sodium 139 mEq/L (136-145); eGFR For Non-African Americans > 60 (> 60)
--- NOTE | 2018-02-09 08:20 | Orthopedics Progress Note ---
Date of Encounter: 02/09/18 Time of Encounter: 08:19 - Assessment and Plan (1) Fluid collection at surgical site Current Visit: Yes Status: Acute Qualifiers: Encounter type: initial encounter Qualified Code(s): T88.8XXA - Other specified complications of surgical and medical care, not elsewhere classified, initial encounter Subjective Principal diagnosis: POW#3 s/p left hip hemiarthroplasty 01/16/18 Interval history: S: Patient is seen today and has no complaints. O: Afebrile and vital signs are stable DARLINE dressing is clean, dry, and intact. Neurovascularly intact distally A: Post left hip bipolar hemiarthroplasty with superficial infection, improving nicely. P: Plan to continue IV antibiotics - Vancomycin 1 gram q 12 hours, pharmacy to dose x 2-4 weeks. Weekly ESR, CRP, Vanc kinetics PICCO dressing in place, facility to change if > 75% saturated. Extra dressings will be given with discharge paperwork. Follow Total Hip precautions x 3 weeks. Follow up on Tuesday02/14/18 Objective Vital signs: Vital Signs Temp Pulse Resp BP Pulse Ox 02/09/18 06:00 98.1 F 80 22 140/59 100 02/09/18 02:57 98.5 F 71 16 132/65 96 02/08/18 23:23 97.8 F 75 16 128/76 98 02/08/18 18:32 98.0 F 88 16 101/67 96 02/08/18 11:23 98.3 F 70 15 109/63 96 Intake and Output 02/08/18 02/09/18 02/09/18 23:59 07:59 15:59 Intake Total 250 / 250 Output Total 450 / 450 Balance -200 / -200 Intake: IV Fluids 100 / 100 Zosyn 3.375 GM In 0.9 % Sodium 100 / 100 Chloride (Mini-Bag +) 100 ML @ 25 mls/hr IVPB Q8H [facility] Rx#: [id number] Oral 150 / 150 Output: Catheter 450 / 450 Other: Meal Dinner Percent of Meal Consumed 30% Weight 62.2 kg Patient Weight 02/09/18 23:59 Weight 62.2 kg - Labs CBC & BMP: 02/09/18 03:50 02/09/18 03:50 Labs: Abnormal lab results RBC 3.45 M/mcL (3.82-4.97) L 02/09/18 03:50 Hgb 9.8 g/dL (11.5-15.4) L 02/09/18 03:50 Hct 32.0 % (35.3-44.9) L 02/09/18 03:50 MCHC 30.6 g/dL (31.6-35.5) L 02/09/18 03:50 RDW 15.9 % (11.5-14.5) H 02/09/18 03:50 MPV 8.9 fL (9.4-12.4) L 02/09/18 03:50 ESR 82 mm/hr (0-15) H 02/09/18 03:50 PT 15.4 Seconds (9.4-12.1) H 02/08/18 08:28 Calcium 8.3 mg/dL (8.6-10.3) L 02/09/18 03:50 Vancomycin Trough 16 mcg/mL (5-10) H 02/06/18 20:39 Consult Discharge Plan - Plan Referrals: Soila Sagastume, ASSEMBLY MACHINE OPERATOR [Primary Care Provider] - Prescriptions: Vancomycin/0.9 % Sod Chloride [Vanco 1 Gram/250 ml-0.9% NaCl] 1 gm IV Q12H 14 Days #28 plast..bag
[2018-02-09] MEDS: Aspirin Enteric Coated 81 MG Tablet PO SCH (08:21)
[2018-02-09] MEDS: Carbidopa/Levodopa ER 50/200 TABLET PO SCH ×5 (08:22→23:11)
[2018-02-09] MEDS: Vancomycin 500 MG in 0.9 % Sodium Chloride Mini Bag 100 ML IVPB SCH ×2 (10:58→23:12)
[2018-02-09] MEDS: *HR* FentaNYL PATCH 25 MCG PATCH TD SCH (17:22)
--- NOTE | 2018-02-09 18:32 | Internal Med Progress Note ---
Hospitalist Progress Note - Encounter Date of Encounter: 02/09/18 Time of Encounter: 17:30 - Subjective Interval History: SUBJECTIVE: The patient feels pretty good. Denies chest pain. Denies difficulty breathing, coughing and wheezing. She is able to ambulate short distances with a walker/assistance. OBJECTIVE: Skin: Free of rash and discoloration. The surgical wound in the area of left hip is looking good. There is no redness or significant swelling of the area. The discharge is very minimal. ENMT: Oral/pharyngeal mucosa is normal in appearance. Eyes: Sclera is white. There is no discharge from eyes. Respiratory: Normal breath sounds; no crackles or wheezes. CV: Heart is regular; no gallop or murmur. GI: Abdomen is soft and not tender. There is no palpable mass or visceromegaly. Neuro: There is no focal deficits. ADDITIONAL DATA: Hemoglobin is 9.8; 9.3 a couple days ago. WBC is 5.2 thousand with normal platelet count. Sodium is 139 with potassium of 3.5 and creatinine of 0.72. ASSESSMENT AND PLAN: Superficial wound infection/collection of fluid in the area of surgical wound (status post left hip replacement). The patient is on IV vancomycin/IV Zosyn. See notes from orthopedic surgery. We will continue physical therapy. Parkinson's disease. Under control. We will continue Symmetrel with Sinemet and Comtan. Hypertension. Under control. To continue Lopressor. Disposition: A referral has been made to [facility]. She will continue IV vancomycin after the discharge for 24 weeks. - Exam Vitals: Temp Pulse Resp BP Pulse Ox 98.1 F 94 17 111/63 92 02/09/18 15:54 02/09/18 15:54 02/09/18 15:54 02/09/18 15:54 02/09/18 15:54 Exam: x - Assessment and Plan (1) Fluid collection at surgical site Current Visit: Yes Status: Acute (2) S/P hip replacement Current Visit: Yes Status: Acute (3) Parkinsons Current Visit: Yes Status: Chronic (4) Hypertension Current Visit: Yes Status: Chronic (5) Hyperlipidemia Current Visit: Yes Status: Chronic - Time Spent with Patient Total time spent is greater than 50% in coordination of care (as documented) at patient's floor/unit and/or counseling patient: 25 - 35 minutes Plan of Care Discussed with: patient Internal Medicine: Result - Labs CBC & Chem 7: 02/09/18 03:50 02/09/18 03:50 Labs: Short CBC 02/09/18 Range/Units 03:50 WBC 5.2 (4.3-11.1) K/mcL Hgb 9.8 L (11.5-15.4) g/dL Hct 32.0 L (35.3-44.9) % Plt Count 216 (140-400) K/mcL Neutrophils # 3.3 (1.6-8.9) K/mcL BMP 02/09/18 03:50 Sodium 139 Potassium 3.5 Chloride 106 Carbon Dioxide 28 BUN 8 Creatinine 0.72 Glucose 87 Calcium 8.3 L - ABG Interpretation ABG results: PT/INR, D-dimer PT 15.4 Seconds (9.4-12.1) H 02/08/18 08:28 Consult Discharge Plan - Plan Referrals: Soila Sagastume, CUSTOMER EXPERIENCE CONSULTANT [Primary Care Provider] - Prescriptions: Vancomycin/0.9 % Sod Chloride [Vanco 1 Gram/250 ml-0.9% NaCl] 1 gm IV Q12H 14 Days #28 plast..bag (1) Fluid collection at surgical site Qualifiers: Encounter type: initial encounter Qualified Code(s): T88.8XXA - Other specified complications of surgical and medical care, not elsewhere classified, initial encounter (2) S/P hip replacement Qualifiers: Laterality: left Qualified Code(s): Z96.642 - Presence of left artificial hip joint (4) Hypertension Qualifiers: Hypertension type: essential hypertension Qualified Code(s): I10 - Essential (primary) hypertension (5) Hyperlipidemia Qualifiers: Hyperlipidemia type: unspecified Qualified Code(s): E78.5 - Hyperlipidemia, unspecified
[2018-02-10] MEDS: Piperacillin/Tazobactam 3.375 GM in 0.9 % Sodium Chloride Mini Bag 100 ML IVPB SCH ×3 (02:32→18:26)
--- NOTE | 2018-02-10 07:50 | Orthopedics Progress Note ---
Date of Encounter: 02/10/18 Time of Encounter: 07:49 Subjective Principal diagnosis: POW#3 s/p left hip hemiarthroplasty 01/16/18 Interval history: Patient seen this morning, christi dressing changed. Erythema resolved. No expressible drainage. New christi dressing will be applied today. Patient stable for discharge on IV antibiotics. Objective Vital signs: Vital Signs Temp Pulse Resp BP Pulse Ox 02/10/18 06:17 97.7 F 67 18 126/72 97 02/09/18 23:49 97.6 F 85 16 113/70 100 02/09/18 21:43 100 02/09/18 19:55 90 15 110/64 02/09/18 19:33 97.8 F 70 16 95/59 100 02/09/18 15:54 98.1 F 94 17 111/63 92 02/09/18 10:22 97.9 F 65 22 115/55 99 Intake and Output 02/09/18 02/09/18 02/10/18 15:59 23:59 07:59 Intake Total 390 / 390 200 / 200 500 / 500 Output Total 500 / 500 200 / 200 150 / 150 Balance -110 / -110 0 / 0 350 / 350 Intake: IV Fluids 100 / 100 200 / 200 100 / 100 Zosyn 3.375 GM In 0.9 % Sodium 100 / 100 100 / 100 Chloride (Mini-Bag +) 100 ML @ 25 mls/hr IVPB Q8H [facility] Rx#: [id number] Vancocin 500 MG In 0.9 % Sodium 100 / 100 100 / 100 Chloride (Mini-Bag +) 100 ML @ 100 mls/hr IVPB Q12H [facility] Rx#: [id number] Oral 290 / 290 400 / 400 Output: Catheter 500 / 500 200 / 200 150 / 150 Other: Meal Lunch Percent of Meal Consumed 10% Weight 62.4 kg Patient Weight 02/10/18 23:59 Weight 62.4 kg - Labs CBC & BMP: 02/09/18 03:50 02/09/18 03:50 Labs: Abnormal lab results RBC 3.45 M/mcL (3.82-4.97) L 02/09/18 03:50 Hgb 9.8 g/dL (11.5-15.4) L 02/09/18 03:50 Hct 32.0 % (35.3-44.9) L 02/09/18 03:50 MCHC 30.6 g/dL (31.6-35.5) L 02/09/18 03:50 RDW 15.9 % (11.5-14.5) H 02/09/18 03:50 MPV 8.9 fL (9.4-12.4) L 02/09/18 03:50 ESR 82 mm/hr (0-15) H 02/09/18 03:50 PT 15.4 Seconds (9.4-12.1) H 02/08/18 08:28 Calcium 8.3 mg/dL (8.6-10.3) L 02/09/18 03:50 Vancomycin Trough 18 mcg/mL (5-10) H 02/09/18 08:45 Consult Discharge Plan - Plan Referrals: Soila Sagastume, DIRECT MARKETING MANAGER [Primary Care Provider] - Prescriptions: Vancomycin/0.9 % Sod Chloride [Vanco 1 Gram/250 ml-0.9% NaCl] 1 gm IV Q12H 14 Days #28 plast..bag
[2018-02-10] MEDS: Carbidopa/Levodopa ER 50/200 TABLET PO SCH ×4 (10:14→22:04)
[2018-02-10] MEDS: Aspirin Enteric Coated 81 MG Tablet PO SCH (10:15)
--- NOTE | 2018-02-10 16:52 | Internal Med Progress Note ---
Hospitalist Progress Note - Encounter Date of Encounter: 02/10/18 Time of Encounter: 17:00 - Subjective Interval History: SUBJECTIVE: The patient feels good. I found her sitting out of bed, eating her lunch. She does not show any respiratory or pain distress. She is able to ambulate with a walker/assistance. OBJECTIVE: Skin: Free of rash and discoloration. The surgical wound in the area of left hip is looking good. There is no redness or significant swelling of the area. The discharge is very minimal. ENMT: Oral/pharyngeal mucosa is normal in appearance. Eyes: Sclera is white. There is no discharge from eyes. Respiratory: Normal breath sounds; no crackles or wheezes. CV: Heart is regular; no gallop or murmur. GI: Abdomen is soft and not tender. There is no palpable mass or visceromegaly. Neuro: There is no focal deficits. ADDITIONAL DATA (from yesterday): Hemoglobin is 9.8; 9.3 a couple days ago. WBC is 5.2 thousand with normal plat elet count. Sodium is 139 with potassium of 3.5 and creatinine of 0.72. ASSESSMENT AND PLAN: Superficial wound infection/collection of fluid in the area of surgical wound (status post left hip replacement). The patient is on IV vancomycin/IV Zosyn. See notes from orthopedic surgery. We will continue physical therapy for ambulation. Parkinson's disease. Under control. We will continue Symmetrel with Sinemet and Comtan. Hypertension. Under control. To continue Lopressor. Disposition: A referral has been made to [facility]. She will continue IV vancomycin after the discharge for 24 weeks. - Exam Vitals: Temp Pulse Resp BP Pulse Ox 98.4 F 56 17 124/64 97 02/10/18 15:45 02/10/18 15:45 02/10/18 15:45 02/10/18 15:45 02/10/18 15:45 Exam: xx - Assessment and Plan (1) Superficial postoperative wound infection Current Visit: Yes Status: Acute (2) Fluid collection at surgical site Current Visit: Yes Status: Acute (3) S/P hip replacement Current Visit: Yes Status: Acute (4) Parkinsons Current Visit: Yes Status: Chronic (5) Hypertension Current Visit: Yes Status: Chronic (6) Hyperlipidemia Current Visit: Yes Status: Chronic - Time Spent with Patient Total time spent is greater than 50% in coordination of care (as documented) at patient's floor/unit and/or counseling patient: 25 - 35 minutes Plan of Care Discussed with: patient Internal Medicine: Result - Labs CBC & Chem 7: 02/09/18 03:50 02/09/18 03:50 - ABG Interpretation ABG results: PT/INR, D-dimer PT 15.4 Seconds (9.4-12.1) H 02/08/18 08:28 Consult Discharge Plan - Plan Referrals: Soila Sagastume, TOOL COORDINATOR [Primary Care Provider] - Prescriptions: Vancomycin/0.9 % Sod Chloride [Vanco 1 Gram/250 ml-0.9% NaCl] 1 gm IV Q12H 14 Days #28 plast..bag (2) Fluid collection at surgical site Qualifiers: Encounter type: initial encounter Qualified Code(s): T88.8XXA - Other specified complications of surgical and medical care, not elsewhere classified, initial encounter (3) S/P hip replacement Qualifiers: Laterality: left Qualified Code(s): Z96.642 - Presence of left artificial hip joint (5) Hypertension Qualifiers: Hypertension type: essential hypertension Qualified Code(s): I10 - Essential (primary) hypertension (6) Hyperlipidemia Qualifiers: Hyperlipidemia type: unspecified Qualified Code(s): E78.5 - Hyperlipidemia, unspecified
[2018-02-11] MEDS: Carbidopa/Levodopa ER 50/200 TABLET PO SCH ×5 (01:27→20:22)
[2018-02-11] MEDS: Piperacillin/Tazobactam 3.375 GM in 0.9 % Sodium Chloride Mini Bag 100 ML IVPB SCH ×3 (01:28→17:33)
[2018-02-11] MEDS: Aspirin Enteric Coated 81 MG Tablet PO SCH (10:31)
--- NOTE | 2018-02-11 15:43 | Orthopedics Progress Note ---
Date of Encounter: 02/11/18 Time of Encounter: 15:41 Subjective Principal diagnosis: POW#3 s/p left hip hemiarthroplasty 01/16/18 Interval history: Patient resting comfortably Left hip: DARLINE dressings are 100% soaked through with serosanguineous fluid Bilateral calves soft and nontender Grossly neurovascular intact distally Assessment: Postoperative week #3, with seroma Plan: DARLINE dressing will be changed Continue IV antibiotics Continue PT ECF referral pending Objective Vital signs: Vital Signs Temp Pulse Resp BP Pulse Ox 02/11/18 12:32 97.7 F 81 17 118/67 93 02/11/18 06:57 97.2 F L 67 17 143/81 94 02/11/18 04:00 98.0 F 79 18 122/74 97 02/11/18 00:40 98.7 F 75 18 122/78 87 02/10/18 19:53 98.1 F 83 16 131/79 96 02/10/18 15:45 98.4 F 56 17 124/64 97 Intake and Output 02/10/18 02/11/18 02/11/18 23:59 07:59 15:59 Intake Total 310 / 310 100 / 100 490 / 490 Output Total 500 / 500 550 / 550 600 / 600 Balance -190 / -190 -450 / -450 -110 / -110 Intake: IV Fluids 100 / 100 100 / 100 100 / 100 Zosyn 3.375 GM In 0.9 % Sodium 100 / 100 100 / 100 100 / 100 Chloride (Mini-Bag +) 100 ML @ 25 mls/hr IVPB Q8H [facility] Rx#: [id number] Oral 210 / 210 390 / 390 Output: Catheter 500 / 500 550 / 550 600 / 600 Other: Meal Dinner Breakfast Percent of Meal Consumed 70% 50% Weight 63.1 kg Patient Weight 02/11/18 23:59 Weight 63.1 kg - Labs CBC & BMP: 02/09/18 03:50 02/09/18 03:50 Labs: Abnormal lab results RBC 3.45 M/mcL (3.82-4.97) L 02/09/18 03:50 Hgb 9.8 g/dL (11.5-15.4) L 02/09/18 03:50 Hct 32.0 % (35.3-44.9) L 02/09/18 03:50 MCHC 30.6 g/dL (31.6-35.5) L 02/09/18 03:50 RDW 15.9 % (11.5-14.5) H 02/09/18 03:50 MPV 8.9 fL (9.4-12.4) L 02/09/18 03:50 ESR 82 mm/hr (0-15) H 02/09/18 03:50 PT 15.4 Seconds (9.4-12.1) H 02/08/18 08:28 Calcium 8.3 mg/dL (8.6-10.3) L 02/09/18 03:50 Vancomycin Trough 18 mcg/mL (5-10) H 02/09/18 08:45 Consult Discharge Plan - Plan Referrals: Soila Sagastume CNP [Primary Care Provider] - Prescriptions: Vancomycin/0.9 % Sod Chloride [Vanco 1 Gram/250 ml-0.9% NaCl] 1 gm IV Q12H 14 Days #28 plast..bag
[2018-02-12] MEDS: Carbidopa/Levodopa ER 50/200 TABLET PO SCH ×5 (00:07→20:10)
[2018-02-12] MEDS: Piperacillin/Tazobactam 3.375 GM in 0.9 % Sodium Chloride Mini Bag 100 ML IVPB SCH ×3 (02:16→18:00)
[2018-02-12] MEDS: Aspirin Enteric Coated 81 MG Tablet PO SCH (07:26)
--- NOTE | 2018-02-12 11:48 | Orthopedics Progress Note ---
Date of Encounter: 02/12/18 Time of Encounter: 11:47 Subjective Principal diagnosis: POW#3 s/p left hip hemiarthroplasty 01/16/18 Interval history: Patient resting comfortably Left hip: DARLINE dressings was 100% soaked through with serosanguineous fluid, a new dressing was just replaced Bilateral calves soft and nontender Grossly neurovascular intact distally Assessment: Postoperative week #3, with seroma Plan: DARLINE dressing will be changed Continue IV antibiotics Continue PT ECF referral pending Objective Vital signs: Vital Signs Temp Pulse Resp BP Pulse Ox 02/12/18 11:25 97.3 F L 71 18 112/65 94 02/12/18 06:22 98.6 F 71 16 128/56 100 02/12/18 03:26 97.5 F L 67 20 131/70 99 02/11/18 23:21 97.4 F L 60 18 110/61 97 02/11/18 19:40 98.0 F 73 18 100/52 100 02/11/18 16:01 98.0 F 72 15 113/61 97 02/11/18 12:32 97.7 F 81 17 118/67 93 Intake and Output 02/11/18 02/12/18 02/12/18 23:59 07:59 15:59 Intake Total 540 / 540 100 / 100 120 / 120 Output Total 600 / 600 225 / 225 Balance -60 / -60 -125 / -125 120 / 120 Intake: IV Fluids 100 / 100 100 / 100 Zosyn 3.375 GM In 0.9 % Sodium 100 / 100 100 / 100 Chloride (Mini-Bag +) 100 ML @ 25 mls/hr IVPB Q8H [facility] Rx#: [id number] Oral 440 / 440 120 / 120 Output: Catheter 600 / 600 225 / 225 Other: Meal Dinner Breakfast Percent of Meal Consumed 85% 90% # Bowel Movements 0 - Labs CBC & BMP: 02/09/18 03:50 02/09/18 03:50 Labs: Abnormal lab results RBC 3.45 M/mcL (3.82-4.97) L 02/09/18 03:50 Hgb 9.8 g/dL (11.5-15.4) L 02/09/18 03:50 Hct 32.0 % (35.3-44.9) L 02/09/18 03:50 MCHC 30.6 g/dL (31.6-35.5) L 02/09/18 03:50 RDW 15.9 % (11.5-14.5) H 02/09/18 03:50 MPV 8.9 fL (9.4-12.4) L 02/09/18 03:50 ESR 82 mm/hr (0-15) H 02/09/18 03:50 PT 15.4 Seconds (9.4-12.1) H 02/08/18 08:28 Calcium 8.3 mg/dL (8.6-10.3) L 02/09/18 03:50 Vancomycin Trough 18 mcg/mL (5-10) H 02/09/18 08:45 Consult Discharge Plan - Plan Referrals: Soila Sagastume CNP [Primary Care Provider] - Prescriptions: Vancomycin/0.9 % Sod Chloride [Vanco 1 Gram/250 ml-0.9% NaCl] 1 gm IV Q12H 14 Days #28 plast..bag
[2018-02-12] MEDS: *HR* FentaNYL PATCH 25 MCG PATCH TD SCH (16:07)
[2018-02-13] MEDS: Carbidopa/Levodopa ER 50/200 TABLET PO SCH ×4 (00:19→21:42)
--- NOTE | 2018-02-13 00:40 | Internal Med Progress Note ---
Hospitalist Progress Note - Encounter Date of Encounter: 02/12/18 Time of Encounter: 11:00 - Subjective Interval History: SUBJECTIVE: She is able to ambulate with a walker/assistance. Denies chest pain and difficulty breathing. Denies pain in the area of left hip at resting. OBJECTIVE: Skin: Free of rash and discoloration. The surgical wound in the area of left hip is looking good. There is no redness or significant swelling of the area. The discharge is very minimal. ENMT: Oral/pharyngeal mucosa is normal in appearance. Eyes: Sclera is white. There is no discharge from eyes. Respiratory: Normal breath sounds; no crackles or wheezes. CV: Heart is regular; no gallop or murmur. GI: Abdomen is soft and not tender. There is no palpable mass or visceromegaly. Neuro: There is no focal deficits. ADDITIONAL DATA (from yesterday): I am ordering CBC and BMP in the morning. ASSESSMENT AND PLAN: Superficial wound infection/collection of fluid in the area of surgical wound (status post left hip replacement). The patient is on IV vancomycin/IV Zosyn. See notes from orthopedic surgery. We will continue physical therapy for ambulation. Parkinson's disease. Under control. We will continue Symmetrel with Sinemet and Comtan. Hypertension. Under control. To continue Lopressor. Disposition: A referral has been made to [facility]. She will continue IV vancomycin after the discharge for 24 weeks. - Exam Vitals: Temp Pulse Resp BP Pulse Ox 98.2 F 64 18 126/75 97 02/12/18 22:47 02/12/18 22:47 02/12/18 22:47 02/12/18 22:47 02/12/18 22:47 Exam: xx - Assessment and Plan (1) Superficial postoperative wound infection Current Visit: Yes Status: Acute (2) Fluid collection at surgical site Current Visit: Yes Status: Acute (3) S/P hip replacement Current Visit: Yes Status: Acute (4) Parkinsons Current Visit: Yes Status: Chronic (5) Hypertension Current Visit: Yes Status: Chronic (6) Hyperlipidemia Current Visit: Yes Status: Chronic - Time Spent with Patient Total time spent is greater than 50% in coordination of care (as documented) at patient's floor/unit and/or counseling patient: 25 - 35 minutes Plan of Care Discussed with: patient Internal Medicine: Result - Labs CBC & Chem 7: 02/09/18 03:50 02/09/18 03:50 - ABG Interpretation ABG results: PT/INR, D-dimer PT 15.4 Seconds (9.4-12.1) H 02/08/18 08:28 Consult Discharge Plan - Plan Referrals: Soila Sagastume, DIRECTOR OF BUSINESS APPLICATIONS [Primary Care Provider] - Prescriptions: Vancomycin/0.9 % Sod Chloride [Vanco 1 Gram/250 ml-0.9% NaCl] 1 gm IV Q12H 14 Days #28 plast..bag (2) Fluid collection at surgical site Qualifiers: Encounter type: initial encounter Qualified Code(s): T88.8XXA - Other specified complications of surgical and medical care, not elsewhere classified, initial encounter (3) S/P hip replacement Qualifiers: Laterality: left Qualified Code(s): Z96.642 - Presence of left artificial hip joint (5) Hypertension Qualifiers: Hypertension type: essential hypertension Qualified Code(s): I10 - Essential (primary) hypertension (6) Hyperlipidemia Qualifiers: Hyperlipidemia type: unspecified Qualified Code(s): E78.5 - Hyperlipidemia, unspecified
[2018-02-13] MEDS: Piperacillin/Tazobactam 3.375 GM in 0.9 % Sodium Chloride Mini Bag 100 ML IVPB SCH ×2 (02:45→09:39)
[2018-02-13 06:30] LABS: Basophils % 0.4 %; Eosinophils # 0.2 K/mcL (0.0-0.6); Eosinophils % 3.9 %; Hematocrit 32.2 % (35.3-44.9); Hemoglobin 9.8 g/dL (11.5-15.4); Immature Granulocytes % 0.4 % (0-4); Lymphocytes % 19.3 %; Mean Corpuscular HGB Conc 30.4 g/dL (31.6-35.5); Mean Corpuscular Hemoglobin 27.8 pg (28.0-33.3); Mean Corpuscular Volume 91.2 fL (83.0-100.0); Mean Platelet Volume 9.1 fL (9.4-12.4); Monocytes # 0.3 K/mcL (0.0-1.3); Monocytes % 6.3 %; Neutrophils # 3.8 K/mcL (1.6-8.9); Platelet Count 197 K/mcL (140-400); Red Blood Count 3.53 M/mcL (3.82-4.97); Red Cell Distribution Width 15.8 % (11.5-14.5); Segmented Neutrophils % 69.7 %
--- NOTE | 2018-02-13 06:50 | Orthopedics Progress Note ---
Date of Encounter: 02/13/18 Time of Encounter: 06:49 Subjective Principal diagnosis: POW#3 s/p left hip hemiarthroplasty 01/16/18 Interval history: Patient seen drainage unchanged continue IV antibiotics CT scan shows no collection for drainage. Continue local wound care will follow-up 1 week. Objective Vital signs: Vital Signs Temp Pulse Resp BP Pulse Ox 02/13/18 06:29 97.7 F 81 15 130/73 97 02/13/18 03:25 98.6 F 73 20 119/66 95 02/12/18 22:47 98.2 F 64 18 126/75 97 02/12/18 20:42 98 02/12/18 19:36 97.8 F 73 18 109/73 98 02/12/18 16:34 97.8 F 67 16 155/78 94 02/12/18 11:25 97.3 F L 71 18 112/65 94 Intake and Output 02/12/18 02/12/18 02/13/18 15:59 23:59 07:59 Intake Total 460 / 460 240 / 240 100 / 100 Output Total 725 / 725 125 / 125 Balance 460 / 460 -485 / -485 -25 / -25 Intake: IV Fluids 100 / 100 100 / 100 Zosyn 3.375 GM In 0.9 % Sodium 100 / 100 100 / 100 Chloride (Mini-Bag +) 100 ML @ 25 mls/hr IVPB Q8H [facility] Rx#: [id number] Oral 360 / 360 240 / 240 0 / 0 Output: Urine 500 / 500 Catheter 225 / 225 125 / 125 Other: Meal Lunch Dinner Percent of Meal Consumed 50% 80% Weight 65.045 kg Patient Weight 02/13/18 23:59 Weight 65.045 kg - Labs CBC & BMP: 02/13/18 06:25 02/09/18 03:50 Labs: Abnormal lab results RBC 3.53 M/mcL (3.82-4.97) L 02/13/18 06:25 Hgb 9.8 g/dL (11.5-15.4) L 02/13/18 06:25 Hct 32.2 % (35.3-44.9) L 02/13/18 06:25 MCH 27.8 pg (28.0-33.3) L 02/13/18 06:25 MCHC 30.4 g/dL (31.6-35.5) L 02/13/18 06:25 RDW 15.8 % (11.5-14.5) H 02/13/18 06:25 MPV 9.1 fL (9.4-12.4) L 02/13/18 06:25 ESR 82 mm/hr (0-15) H 02/09/18 03:50 PT 15.4 Seconds (9.4-12.1) H 02/08/18 08:28 Calcium 8.3 mg/dL (8.6-10.3) L 02/09/18 03:50 Vancomycin Trough 12 mcg/mL (5-10) H 02/12/18 10:00 Consult Discharge Plan - Plan Referrals: Soila Sagastume CNP [Primary Care Provider] - Prescriptions: Vancomycin/0.9 % Sod Chloride [Vanco 1 Gram/250 ml-0.9% NaCl] 1 gm IV Q12H 14 Days #28 plast..bag
[2018-02-13 07:12] LABS: BUN/Creatinine Ratio 12 (6-26); Blood Urea Nitrogen 9 mg/dL (8-23); Calcium 8.3 mg/dL (8.6-10.3); Carbon Dioxide 27 mEq/L (23-29); Chloride 107 mEq/L (98-107); Glucose 87 mg/dL (70-105); Osmolality,Calculated 290 (280-300); Sodium 141 mEq/L (136-145); eGFR For Non-African Americans > 60 (> 60)
--- NOTE | 2018-02-13 08:24 | Physician Discharge Referral ---
[facility] Referral Info [facility] Provider in Charge: Provider in Charge after Transfer: PCP Institutional Level of Care: Skilled - Diagnosis (1) Seroma Priority: Primary Status: Acute (2) Fracture of femoral neck, left Priority: Secondary Status: Acute (3) S/P hip replacement Priority: Primary Status: Acute (4) Hyperlipidemia Priority: Secondary Status: Chronic (5) Hypertension Priority: Secondary Status: Chronic (6) Parkinsons Priority: Secondary Status: Chronic Expected Duration of Placement: < 30 days Prognosis: Good Aware of Diagnosis: Patient Aware of Prognosis: Patient - Transfer Medications Prescriptions: HYDROcodone/Acet 5/325 mg [[place] 5-325 mg] 1 tab PO Q6HR PRN 7 Days #28 tablet PRN Reason: Moderate Pain Vancomycin/0.9 % Sod Chloride [Vanco 1 Gram/250 ml-0.9% NaCl] 1 gm IV Q12H 14 Days #28 plast..bag Home Medications: Amantadine HCl [Amantadine] 100 mg PO TID 01/16/18 [History] Aspirin Enteric Coated [Aspirin EC] 81 mg PO DAILY 01/16/18 [History] Atorvastatin [Lipitor] 20 mg PO HS 01/16/18 [History] Carbidopa/Levodopa ER 50/200 [Sinemet ER 50-200 Tab] 1 tab PO 5XD 01/16/18 [History] Cyanocobalamin (Vitamin B-12) [Vitamin B-12] 500 mcg PO DAILY 01/16/18 [History] Entacapone [Comtan] 200 mg PO QID 01/16/18 [History] Metoprolol Tartrate [Lopressor] 25 mg PO BID 01/16/18 [History] hydrOXYzine HCl [Hydroxyzine HCl] 10 mg PO HS 01/16/18 [History] Docusate [Colace] 100 mg PO BID capsule 01/18/18 [Rx] Multivit/Ca/Min/Fe/FA [Thera M Plus] 1 tab PO DAILY tablet 01/18/18 [Rx] FentaNYL PATCH [Duragesic] 25 mcg TD Q72H 02/06/18 [History] Vancomycin/0.9 % Sod Chloride [Vanco 1 Gram/250 ml-0.9% NaCl] 1 gm IV Q12H 14 Days #28 plast..bag 02/08/18 [Rx] HYDROcodone/Acet 5/325 mg [[place] 5-325 mg] 1 tab PO Q6HR PRN 7 Days #28 tablet 02/13/18 [Rx] Allergies/Adverse Reactions: Allergy/AdvReac Type Severity Reaction Status Date / Time metoclopramide [From Reglan] AdvReac Vomiting Verified 02/06/18 14:17 Penicillins AdvReac Vomiting Verified 02/06/18 14:17 - Respiratory Orders None Smoking Cessation: Smoking cessation has been advised. For more information, call the [employer] Quit Line at 9-886-UYWT-NOW. - Lab Orders Lab Orders: CBC, Other (include drug levels w/frequency) (Weekly Vancomycin kinetics, ESR, CRP - with faxed results to [facility]) - Advance Directives Code Status: Full Code - Mobility Orders Ambulate (Total Hip Precautions x 2 weeks.) - Rehabiliation Orders Rehab Potential: Good Rehab Orders: ROM Exercises, Evaluation for Physical Therapy, Evaluation for Occupational Therapy Other: Total Hip Precautions x 2 weeks (date 02/13/18) - Treatments Skin tear care topically daily PRN per policy, May check for fecal impaction rectally daily PRN, Fleet enema rectally every other day PRN cleansing purposes List/Other: POW#4 - Left Hip Hemiarthroplasty, due to fracture 01/13/18 - Seroma 02/06. New PICCO given to place on today with new battery pack for 7 days dressing and wound care. Change dressing if > 75% saturated - see attached instructions. Extra dressings given to patient. If patient satuates through all extra dressings, start with daily dressing changes with Tegaderm +pad dressings. Dressing checks needed Q 4 hours, with the exception of during the night. Skin checks per shift to ensure to pressure ulcers developing Seroma resolving. Plan: IV Vancomycin 1 gram q 12 hours, 2-4 weeks - pharmacy to dose (start date: 02/07/18, end date: 03/09/18) Weekly Vancomycin kinetics, ESR, CRP needed - results faxed to [facility] Total Joint Precautions x 6 weeks Apply cold therapy wrap 3-6x/day for 20 minutes at a time. Encourage ambulation throughout the day Use Incentive spirometer 10x/hour. Elevate affected extremity above heart as tolerated. - Diet Orders Regular CERTIFICATION: I certify that the transfer of the above named patient to an Extended Care Facility is necessary for the continuing treatment of the diagnosis listed. The above information is true and accurate reflection of patient's current condition. Confidential - Redisclosure prohibited without a patient's written consent.
[2018-02-13] MEDS: Aspirin Enteric Coated 81 MG Tablet PO SCH (09:39)
[2018-02-13] MEDS ORDERED: 0.9 % Sodium Chloride 1,000 ML IVC SCH (11:30)
[2018-02-13] MEDS ORDERED: 0.9 % Sodium Chloride 1,000 ML ONE (11:32)
[2018-02-13 14:37] LABS: Bilirubin,Urine Negative (Negative); Blood,Urine Negative (Negative); Clarity,Urine Clear (Clear); Glucose,Urine (UA) Normal (Normal); Ketones,Urine Trace mg/dL (Negative); Leukocyte Esterase,Urine Small (Negative); Nitrite,Urine Negative (Negative); Protein,Urine 30 mg/dL (Neg-Trace); Specific Gravity,Urine 1.016 (1.010-1.025); Urobilinogen,Urine Normal (Normal)
[2018-02-13 14:39] LABS: Hyaline Casts,Urine None Seen per lpf (None-Few)
[2018-02-13 14:43] LABS: Color,Urine Orange (Yellow)
[2018-02-13 15:02] LABS: RBC,Urine 0-3 per hpf (0-3); Squamous Epithelial Cell,Urine Few per lpf (None-Few)
[2018-02-13 15:03] LABS: Bacteria,Urine Few per hpf (None-Few); Yeast,Urine Many per hpf (None Seen)
--- NOTE | 2018-02-13 15:47 | Anesthesia Evaluation PreOp ---
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: Other (Parkinson's, spinal stenosis) Other Medical History: Denies Any Significant HX Anesthesia History: No Prior Anesthetic Complications, Past Anesthesia Alcohol Use: none Drug use: none Medications and Allergies Amantadine HCl [Amantadine] 100 mg PO TID 01/16/18 [History] Aspirin Enteric Coated [Aspirin EC] 81 mg PO DAILY 01/16/18 [History] Atorvastatin [Lipitor] 20 mg PO HS 01/16/18 [History] Carbidopa/Levodopa ER 50/200 [Sinemet ER 50-200 Tab] 1 tab PO 5XD 01/16/18 [History] Cyanocobalamin (Vitamin B-12) [Vitamin B-12] 500 mcg PO DAILY 01/16/18 [History] Entacapone [Comtan] 200 mg PO QID 01/16/18 [History] Metoprolol Tartrate [Lopressor] 25 mg PO BID 01/16/18 [History] hydrOXYzine HCl [Hydroxyzine HCl] 10 mg PO HS 01/16/18 [History] Docusate [Colace] 100 mg PO BID capsule 01/18/18 [Rx] Multivit/Ca/Min/Fe/FA [Thera M Plus] 1 tab PO DAILY tablet 01/18/18 [Rx] FentaNYL PATCH [Duragesic] 25 mcg TD Q72H 02/06/18 [History] Vancomycin/0.9 % Sod Chloride [Vanco 1 Gram/250 ml-0.9% NaCl] 1 gm IV Q12H 14 Days #28 plast..bag 02/08/18 [Rx] HYDROcodone/Acet 5/325 mg [[place] 5-325 mg] 1 tab PO Q6HR PRN 7 Days #28 tablet 02/13/18 [Rx] Allergy/AdvReac Type Severity Reaction Status Date / Time metoclopramide [From Reglan] AdvReac Vomiting Verified 02/06/18 14:17 Penicillins AdvReac Vomiting Verified 02/06/18 14:17 - Meds/Allergy Pre-op Review Medications Reviewed: Yes Allergies Reviewed: Yes Beta Blockers on Current Med List: Yes If Beta Blockers taken, Date/Time (Last Dose taken): 02/13/2018 at 0940 Anesthesia Results - Labs 02/13/18 06:25 02/13/18 06:25 - Imaging EKG: report reviewed (01/16/2018 ATRIAL FIBRILLATION INCOMPLETE RIGHT BUNDLE BRANCH BLOCK NONSPECIFIC ST-T CHANGES) Anesthesia Exam Vital Signs/O2 Sat, Most Current Temp Pulse Resp BP Pulse Ox 98.3 F 84 16 142/74 93 02/13/18 15:52 02/13/18 15:52 02/13/18 15:52 02/13/18 15:52 02/13/18 15:52 Height: 5'7''/1.73m Weight: 143 lbs/65 kg NPO (# of Hours): 8 Pain Scale: 0 (at rest) Pain Scale Used: Numeric (1 - 10) - HEENT Pupil (Motor): EOMI Mallampati: II Teeth: Edentulous Oral Opening: Greater than 3 - REFRACTORY PRODUCTS SUPERVISOR LOC: Oriented REFRA[employer]ORY PRODUCTS SUPERVISOR Motor: Normal RUE, Normal LUE, Normal RLE, Normal LLE, Normal Face REFRA[employer]ORY PRODUCTS SUPERVISOR Sensory: Normal: RUE, LUE, RLE, LLE, Face - Cardiac Rhythm: Regular Murmur: None - Pulmonary Breath Sounds: bilateral Clear Respiratory Effort: Symmetrical Anesthesia Assess/Plan ASA Score: 3 Level of consciousness: Cooperative, Oriented, Tranquil Anesthetic Plan: General Monitoring Plan: Standard Monitors Recovery Plan: PACU
[2018-02-13] MEDS ORDERED: Ethanol\\Acetic Acid\\Na Ace\\Ben 1,000 ML IRRIG.SOLN IR ONE ×2 (17:02→18:02)
[2018-02-13] MEDS ORDERED: *HR* FentaNYL (PF) 100 MCG/2 ML VIAL ONE (17:09)
[2018-02-13] MEDS ORDERED: Lidocaine -MPF 2% 2 ML VIAL ONE (17:09)
[2018-02-13] MEDS ORDERED: *HR* Midazolam HCl 2 MG/2 ML VIAL ONE (17:09)
[2018-02-13] MEDS ORDERED: *HR* Propofol 200 MG/20 ML VIAL IVP ONE (17:09)
[2018-02-13] MEDS ORDERED: *HR* OxyCODONE/APAP 5/325 TABLET PO PRN (18:04)
[2018-02-13] MEDS ORDERED: *HR* Morphine 2 MG/ML SYRINGE IVP PRN (18:04)
[2018-02-13] MEDS ORDERED: CeFAZolin Syr 2,000MG/20 ML 2,000 MG/20 ML SYRINGE IVPB ONE (18:06)
--- NOTE | 2018-02-13 18:16 | Orthopedic Operative Note ---
Date of procedure: 02/13/18 Pre-op diagnosis: Left hip wound dehiscence Post-op diagnosis: same Procedure: Procedure: Left hip wound irrigation debridement and closure Findings: Patient seen this morning noted to have significant change in appearance of wound with a large central defect after christi dressing removed. Patient indicated for irrigation debridement wound closure. Patient had some some subcutaneous tunneling. No purulent material. No hematoma collection. Dictation surgery. Patient brought to the operating placed on the operating table after general anesthesia was administered patient was placed at the left side tilted up. The left lower extremity is prepped and draped in sterile surgical fashion. Patient received IV antibiotics prior skin incision. Patient had a 1 cm by half centimeter open wound central, this was ellipticized. There was some tunneling underneath the incision in this area was extended. There was no purulent material, no hematoma collection. Cultures were obtained. The hip was irrigated with 2 L of pulse irrigation with an antibacterial solution and 3 L of pulse irrigation with normal saline. The deep tissues closed with #2 PDS suture, superficially with 0 PDS suture. Subcutaneous with Monocryl. Skin with skin nabeel. Patient placed sterile dressing extubated transferred to recovery room stable condition. Anesthesia: GETA Surgeon: Can Castanon Was there an curriculum assistant principal present: No Estimated blood loss (cc): 50 Condition: stable Disposition: PACU
[2018-02-13] MEDS ORDERED: *HR* Morphine 10 MG/ML VIAL ONE (18:26)
[2018-02-13] MEDS ORDERED: Ondansetron 4 MG/2 ML VIAL ONE (18:26)
[2018-02-13] MEDS ORDERED: Ketorolac 30 MG/ML VIAL ONE (18:26)
--- NOTE | 2018-02-13 18:52 | Anesthesia Evaluation Post Op ---
Date of Encounter: 02/13/18 Time of Encounter: 18:50 - Vital Signs Vital Signs: Vital Signs/O2 Sat, Most Current Temp Pulse Resp BP Pulse Ox 98.3 F 77 16 133/70 97 02/13/18 18:35 02/13/18 18:45 02/13/18 18:45 02/13/18 18:45 02/13/18 18:45 - Lungs Lungs: Clear Ascult./Percussion - Airway Airway: Non-obstructed - Cardiovascular Regular Rate - Mental Status Mental Status: Asleep with brisk response to light stimulation - Pain Pain Scale: 2 Pain Scale used: Numeric (1 - 10) - Nausea Vomiting Nausea Vomiting: Not Present - Hydration Hydration: Ice chips, Gaspar catheter - Discharge PostOp Status: Transfer Patient to floor
[2018-02-13] MEDS ORDERED: Temazepam 15 MG CAPSULE PO PRN (19:02)
[2018-02-13] MEDS ORDERED: Ondansetron 4 MG/2 ML VIAL IVP PRN (19:02)
[2018-02-13] MEDS ORDERED: Acetaminophen 325 MG TABLET PO PRN (19:02)
[2018-02-13] MEDS ORDERED: Naloxone 0.4 MG/ML INJ IVP PRN ×2 (19:02)
[2018-02-13] MEDS ORDERED: Sennosides 8.6 MG TABLET PO PRN (19:02)
[2018-02-13] MEDS ORDERED: MOM Conc 10 ML UD.LIQ PO PRN (19:02)
--- NOTE | 2018-02-13 23:38 | Internal Med Progress Note ---
Hospitalist Progress Note - Encounter Date of Encounter: 02/13/18 Time of Encounter: 14:30 - Subjective Interval History: SUBJECTIVE: She is able to ambulate with a walker/assistance. Denies chest pain and difficulty breathing. Denies pain in the area of left hip at resting. Current left hip wound showed significant change in appearance today morning. See progress note from orthopedic surgery. The patient was taken to our for left hip wound irrigation, debridement and closure. OBJECTIVE: Skin: Free of rash and discoloration. See description of the patient's wound done by orthopedic surgery. ENMT: Oral/pharyngeal mucosa is normal in appearance. Eyes: Sclera is white. There is no discharge from eyes. Respiratory: Normal breath sounds; no crackles or wheezes. CV: Heart is regular; no gallop or murmur. GI: Abdomen is soft and not tender. There is no palpable mass or visceromegaly. Neuro: There is no focal deficits. ADDITIONAL DATA (from yesterday): I am ordering CBC and BMP in the morning. ASSESSMENT AND PLAN: Superficial wound infection/collection of fluid in the area of surgical wound (status post left hip replacement). The patient had left hip wound irrigation, debridement and closure today afternoon. Wound cultures have been taken. The patient continues IV vancomycin/IV Zosyn. Parkinson's disease. Under control. We will continue Symmetrel with Sinemet and Comtan. Hypertension. Under control. To continue Lopressor. Disposition: A referral has been made to [facility]. She will need IV antibiotics at the time of discharge. - Exam Vitals: Temp Pulse Resp BP Pulse Ox 97.9 F 75 16 143/76 100 02/13/18 23:31 02/13/18 23:31 02/13/18 23:31 02/13/18 23:31 02/13/18 23:31 Exam: xx - Assessment and Plan (1) Superficial postoperative wound infection Current Visit: Yes Status: Acute (2) Fluid collection at surgical site Current Visit: Yes Status: Acute (3) S/P hip replacement Current Visit: Yes Status: Acute (4) Parkinsons Current Visit: Yes Status: Chronic (5) Hypertension Current Visit: Yes Status: Chronic (6) Hyperlipidemia Current Visit: Yes Status: Chronic - Time Spent with Patient Total time spent is greater than 50% in coordination of care (as documented) at patient's floor/unit and/or counseling patient: 25 - 35 minutes Plan of Care Discussed with: patient Internal Medicine: Result - Labs CBC & Chem 7: 02/13/18 06:25 02/13/18 06:25 Labs: Short CBC 02/13/18 Range/Units 06:25 WBC 5.4 (4.3-11.1) K/mcL Hgb 9.8 L (11.5-15.4) g/dL Hct 32.2 L (35.3-44.9) % Plt Count 197 (140-400) K/mcL Neutrophils # 3.8 (1.6-8.9) K/mcL BMP 02/13/18 06:25 Sodium 141 Potassium 3.0 L Chloride 107 Carbon Dioxide 27 BUN 9 Creatinine 0.73 Glucose 87 Calcium 8.3 L Urine 02/13/18 Range/Units 11:45 Urine Color [place] A (Yellow) Urine Clarity Clear (Clear) Urine pH 6.0 (5.0-8.0) pH Units Ur Specific [place] 1.016 (1.010-1.025) Urine Protein 30 H (Neg-Trace) mg/dL Urine Glucose (UA) Normal (Normal) mg/dL - ABG Interpretation ABG results: PT/INR, D-dimer PT 15.4 Seconds (9.4-12.1) H 02/08/18 08:28 Consult Discharge Plan - Plan Referrals: Soila Sagastume, MAINTENANCE DEPARTMENT MANAGER [Primary Care Provider] - Prescriptions: HYDROcodone/Acet 5/325 mg [[place] 5-325 mg] 1 tab PO Q6HR PRN 7 Days #28 tablet PRN Reason: Moderate Pain Vancomycin/0.9 % Sod Chloride [Vanco 1 Gram/250 ml-0.9% NaCl] 1 gm IV Q12H 14 Days #28 plast..bag (2) Fluid collection at surgical site Qualifiers: Encounter type: initial encounter Qualified Code(s): T88.8XXA - Other specified complications of surgical and medical care, not elsewhere classified, initial encounter (3) S/P hip replacement Qualifiers: Laterality: left Qualified Code(s): Z96.642 - Presence of left artificial hip joint (5) Hypertension Qualifiers: Hypertension type: essential hypertension Qualified Code(s): I10 - Essential (primary) hypertension (6) Hyperlipidemia Qualifiers: Hyperlipidemia type: unspecified Qualified Code(s): E78.5 - Hyperlipidemia, unspecified
[2018-02-14] MEDS: Carbidopa/Levodopa ER 50/200 TABLET PO SCH ×5 (01:25→20:29)
[2018-02-14] MEDS: Piperacillin/Tazobactam 3.375 GM in 0.9 % Sodium Chloride Mini Bag 100 ML IVPB SCH ×3 (01:26→17:36)
[2018-02-14] MEDS: Ringers Solution, Lactated 1,000 ML IVC SCH ×2 (01:27→17:37)
[2018-02-14 05:09] LABS: Hematocrit 28.4 % (35.3-44.9); Hemoglobin 8.6 g/dL (11.5-15.4)
[2018-02-14 05:38] LABS: BUN/Creatinine Ratio 13 (6-26); Blood Urea Nitrogen 8 mg/dL (8-23); Calcium 8.1 mg/dL (8.6-10.3); Carbon Dioxide 28 mEq/L (23-29); Chloride 107 mEq/L (98-107); Glucose 79 mg/dL (70-105); Osmolality,Calculated 289 (280-300); Potassium 2.9 mEq/L (3.5-5.1); Sodium 141 mEq/L (136-145); eGFR For Non-African Americans > 60 (> 60)
--- NOTE | 2018-02-14 06:28 | Orthopedics Progress Note ---
Date of Encounter: 02/14/18 Time of Encounter: 06:27 Subjective Principal diagnosis: POW#3 s/p left hip hemiarthroplasty 01/16/18 Interval history: Patient was reevaluated later in the day wound was opened bigger than last evaluation. Patient doing well dressing clean dry and intact Gram stain positive for gram-positive cocci. Continue IV antibiotics. Objective Vital signs: Vital Signs Temp Pulse Resp BP Pulse Ox 02/14/18 06:21 98.2 F 72 15 103/63 97 02/14/18 04:17 97.9 F 67 16 112/68 96 02/13/18 23:31 97.9 F 75 16 143/76 100 02/13/18 22:30 98.3 F 62 16 128/74 98 02/13/18 21:30 97.9 F 72 16 126/80 96 02/13/18 20:30 98.3 F 72 16 124/78 96 02/13/18 20:00 98.2 F 72 16 128/84 96 02/13/18 19:30 97.8 F 68 16 128/82 96 02/13/18 19:05 97.6 F 81 16 140/81 98 02/13/18 18:55 68 16 132/72 97 02/13/18 18:45 77 16 133/70 97 02/13/18 18:35 98.3 F 72 16 121/79 99 02/13/18 15:52 98.3 F 84 16 142/74 93 02/13/18 11:23 98.4 F 71 17 136/81 99 02/13/18 06:29 97.7 F 81 15 130/73 97 Intake and Output 02/13/18 02/13/18 02/14/18 15:59 23:59 07:59 Intake Total 590 / 590 20 / 20 100 / 100 Output Total 625 / 625 300 / 300 Balance 590 / 590 -605 / -605 -200 / -200 Intake: IV Fluids 350 / 350 20 / 20 Ancef Syringe 2,000 MG/20 ML 2, 20 / 20 000 mg In 20 ml @ 200 mls/hr IVPB ONCE ONE Rx#:[id number] Zosyn 3.375 GM In 0.9 % Sodium 100 / 100 Chloride (Mini-Bag +) 100 ML @ 25 mls/hr IVPB Q8H [facility] Rx#: [id number] Vancocin 1,000 MG In 0.9 % 250 / 250 Sodium Chloride 250 ML @ 166. 667 mls/hr IVPB Q24H [facility] Rx#: [id number] Oral 240 / 240 100 / 100 Output: Estimated Blood Loss 50 / 50 Urine Amount (Catheter) 575 / 575 Catheter 300 / 300 Other: Meal Lunch Percent of Meal Consumed 0% Weight 65.047 kg Patient Weight 02/14/18 23:59 Weight 65.047 kg - Labs CBC & BMP: 02/14/18 04:00 02/14/18 04:00 Labs: Abnormal lab results RBC 3.53 M/mcL (3.82-4.97) L 02/13/18 06:25 Hgb 8.6 g/dL (11.5-15.4) L 02/14/18 04:00 Hct 28.4 % (35.3-44.9) L 02/14/18 04:00 MCH 27.8 pg (28.0-33.3) L 02/13/18 06:25 MCHC 30.4 g/dL (31.6-35.5) L 02/13/18 06:25 RDW 15.8 % (11.5-14.5) H 02/13/18 06:25 MPV 9.1 fL (9.4-12.4) L 02/13/18 06:25 ESR 82 mm/hr (0-15) H 02/09/18 03:50 PT 15.4 Seconds (9.4-12.1) H 02/08/18 08:28 Potassium 2.9 mEq/L (3.5-5.1) L 02/14/18 04:00 Calcium 8.1 mg/dL (8.6-10.3) L 02/14/18 04:00 Urine Color [place] (Yellow) A 02/13/18 11:45 Urine Protein 30 mg/dL (Neg-Trace) H 02/13/18 11:45 Urine Ketones Trace mg/dL (Negative) H 02/13/18 11:45 Ur Leukocyte Esterase Small (Negative) H 02/13/18 11:45 Urine Microscopic WBC 5-15 per hpf (0-3) H 02/13/18 11:45 Urine Yeast Many per hpf (None Seen) H 02/13/18 11:45 Vancomycin Trough 12 mcg/mL (5-10) H 02/12/18 10:00 Consult Discharge Plan - Plan Referrals: Soila Sagastume, ADRIAN [Primary Care Provider] - Prescriptions: HYDROcodone/Acet 5/325 mg [[place] 5-325 mg] 1 tab PO Q6HR PRN 7 Days #28 tablet PRN Reason: Moderate Pain Vancomycin/0.9 % Sod Chloride [Vanco 1 Gram/250 ml-0.9% NaCl] 1 gm IV Q12H 14 Days #28 plast..bag
[2018-02-14] MEDS: Multivit/Ca/Min/Fe/FA 1 TAB TABLET PO SCH (09:05)
[2018-02-14] MEDS: Aspirin Enteric Coated 81 MG Tablet PO SCH (09:05)
[2018-02-14] MEDS: Ascorbic Acid 500 MG TABLET PO SCH ×2 (09:06→17:36)
[2018-02-14] MEDS: *HR* HYDROcodone/Acet 5/325 mg TABLET PO PRN (09:06)
[2018-02-14] MEDS: 0.9 % Sodium Chloride 1,000 ML IVC SCH ×2 (17:33→17:34)
--- NOTE | 2018-02-14 20:30 | Internal Med Progress Note ---
Hospitalist Progress Note - Encounter Date of Encounter: 02/14/18 Time of Encounter: 20:27 - Subjective Interval History: Pt denies fever, chills, N/V or diarrhea. She denies chest pain or SOB. She denies abdominal pain. - Exam Vitals: Temp Pulse Resp BP Pulse Ox 98.1 F 79 16 100/62 98 02/14/18 18:42 02/14/18 18:42 02/14/18 18:42 02/14/18 18:42 02/14/18 18:42 Exam: Exam: VSS, Stable Gen: Calm, not in distress, speaks full sentences HEENT: Moist oral mucosa, sclera anicteric, not pale Chest: Equal chest movement bilaterally REsp: CTAB, diminished breath sound, likely due to body habitus Heart: S1, S2, only, no m/g/r Abdomen: Obese, soft, not tender, BS present in al quadrants Extremities: Left hip lateral incision dressing clean dry and intact, gauze on wound is minimally soaked with serous fluid, no purulent discharge noted, extremity is neurovascularly intact distally. , no pedal edema, pulses present bilaterally Neuro: AAOX3, no speech deficits, moves all extremities equally, no facial paralysis Psych: Affect is appropriate - Assessment and Plan (1) Superficial postoperative wound infection Current Visit: Yes Status: Acute Assessment and Plan: On Zosyn and Vancomycin for now. Will continue to monitor. Culture so far no growth (2) Fluid collection at surgical site Current Visit: Yes Status: Acute Assessment and Plan: with superficial skin infection. Plan serous secretion from surgical site has decreased as well as the erythema Ortho recommended conservative management with IV antibiotics On vancomycin per pharmacy dosing plus piperacillin/tazobactam 3.375mg/IV Q8HRs [place] 5-325mg/PO 1tab Q6HR PRN Ortho following. (3) S/P hip replacement Current Visit: Yes Status: Acute Assessment and Plan: s/p left hip hemiarthroplasty 01/16/18. (4) Hypertension Current Visit: Yes Status: Chronic Assessment and Plan: BP well controlled. On metoprolol 25mg/PO BID (5) Hyperlipidemia Current Visit: Yes Status: Chronic Assessment and Plan: Continue atorvastatin 20mg/PO daily. On aspirin 81mg/PO daily. (6) Parkinsons Current Visit: Yes Status: Chronic Assessment and Plan: continue home meds; amantadine 100mg/PO TID carbidopa/levodopa 1 tab?PO 5xd entacapone 200mg/PO QID DVT Prophylaxis: SCD - Summary of Assessment and Plan Summary of Assessment and Plan: History of present illness: Dr. Roe Ms. Machado is a 72 year old female with Parkinson's disease, who was recently di scharged from this facility status post left total arthroplasty 19 days ago. 2 days ago, nabeel were removed from the incision as outpatient, and the patient was returned to the snf facility. She represented to the ER today with complaints of copious clear discharge from the wound. According to chart, they have drained about a gallon . No family at bedside during evaluation, patient is fairly stable and in no form of distress, she denies fever or chills, she denies pain at the site of surgery unless pinched, she denies chest pain, shortness of breath, nausea, vomiting, abdominal pain, fever, diarrhea. She was just treated for urinary tract infection with Bactrim from the nursing facility. Labs and workup. Unremarkable She remains afebrile here CAT scan showed fluid collection surrounding incision and prosthesis likely seroma versus abscess. The patient will be admitted inpatient for evaluation for seroma, it is unlikely that the patient has an infection at this time. Orthopedic surgery has been consulted The patient has no advance directives, and she is full code. - Time Spent with Patient Total time spent is greater than 50% in coordination of care (as documented) at patient's floor/unit and/or counseling patient: less than 15 minutes Plan of Care Discussed with: patient Internal Medicine: Result - Labs CBC & Chem 7: 02/14/18 04:00 02/14/18 04:00 Labs: Short CBC 02/14/18 Range/Units 04:00 Hgb 8.6 L (11.5-15.4) g/dL Hct 28.4 L (35.3-44.9) % BMP 02/14/18 04:00 Sodium 141 Potassium 2.9 L Chloride 107 Carbon Dioxide 28 BUN 8 Creatinine 0.63 Glucose 79 Calcium 8.1 L - ABG Interpretation ABG results: PT/INR, D-dimer PT 15.4 Seconds (9.4-12.1) H 02/08/18 08:28 Consult Discharge Plan - Plan Referrals: Soila Sagastume, DANDY TENDER [Primary Care Provider] - Prescriptions: HYDROcodone/Acet 5/325 mg [[place] 5-325 mg] 1 tab PO Q6HR PRN 7 Days #28 tablet PRN Reason: Moderate Pain Vancomycin/0.9 % Sod Chloride [Vanco 1 Gram/250 ml-0.9% NaCl] 1 gm IV Q12H 14 Days #28 plast..bag (2) Fluid collection at surgical site Qualifiers: Encounter type: initial encounter Qualified Code(s): T88.8XXA - Other spe cified complications of surgical and medical care, not elsewhere classified, initial encounter (3) S/P hip replacement Qualifiers: Laterality: left Qualified Code(s): Z96.642 - Presence of left artificial hip joint (4) Hypertension Qualifiers: Hypertension type: essential hypertension Qualified Code(s): I10 - Essential (primary) hypertension (5) Hyperlipidemia Qualifiers: Hyperlipidemia type: unspecified Qualified Code(s): E78.5 - Hyperlipidemia, unspecified
[2018-02-15] MEDS: Piperacillin/Tazobactam 3.375 GM in 0.9 % Sodium Chloride Mini Bag 100 ML IVPB SCH ×3 (03:19→19:09)
[2018-02-15] MEDS: Carbidopa/Levodopa ER 50/200 TABLET PO SCH ×5 (03:24→21:22)
[2018-02-15 05:37] LABS: Hematocrit 29.2 % (35.3-44.9); Hemoglobin 8.6 g/dL (11.5-15.4)
[2018-02-15 05:46] LABS: BUN/Creatinine Ratio 12 (6-26); Blood Urea Nitrogen 7 mg/dL (8-23); Carbon Dioxide 28 mEq/L (23-29); Chloride 109 mEq/L (98-107); Glucose 100 mg/dL (70-105); Osmolality,Calculated 286 (280-300); Potassium 3.3 mEq/L (3.5-5.1); Sodium 139 mEq/L (136-145); eGFR For Non-African Americans > 60 (> 60)
[2018-02-15] MEDS: *HR* HYDROcodone/Acet 5/325 mg TABLET PO PRN ×2 (10:06→17:35)
[2018-02-15] MEDS: Multivit/Ca/Min/Fe/FA 1 TAB TABLET PO SCH (10:07)
[2018-02-15] MEDS: Ascorbic Acid 500 MG TABLET PO SCH ×2 (10:07→17:21)
[2018-02-15] MEDS: Aspirin Enteric Coated 81 MG Tablet PO SCH (10:08)
--- NOTE | 2018-02-15 14:34 | Orthopedics Progress Note ---
Date of Encounter: 02/15/18 Time of Encounter: 06:00 Subjective Principal diagnosis: POW#3 s/p left hip hemiarthroplasty 01/16/18 Interval history: Patient was seen this morning doing well without complaints. Afebrile vital signs stable. Operative extremity: Neurovascularly intact Dressing clean dry and intact Calves nontender Assessment and plan: Continue with postoperative care Patient has gram-negative rods we will adjust antibiotics appropriately Objective Vital signs: Vital Signs Temp Pulse Resp BP Pulse Ox 02/15/18 10:42 97.6 F 78 18 116/72 96 02/15/18 06:17 98.9 F 80 16 115/72 97 02/14/18 23:26 97.7 F 76 16 111/70 98 02/14/18 18:42 98.1 F 79 16 100/62 98 Intake and Output 02/14/18 02/15/18 02/15/18 23:59 07:59 15:59 Intake Total 1300 / 1300 100 / 100 120 / 120 Output Total 200 / 200 550 / 550 Balance 1100 / 1100 -450 / -450 120 / 120 Intake: IV Fluids 1100 / 1100 100 / 100 Lactated Ringers 1,000 ML @ 75 1000 / 1000 mls/hr IVC .[id number] [facility] Rx#: [id number] Zosyn 3.375 GM In 0.9 % Sodium 100 / 100 100 / 100 Chloride (Mini-Bag +) 100 ML @ 25 mls/hr IVPB Q8H [facility] Rx#: [id number] Oral 200 / 200 120 / 120 Output: Catheter 200 / 200 550 / 550 Other: Meal Dinner Breakfast Percent of Meal Consumed 95% 20% Weight 66.2 kg Patient Weight 02/15/18 23:59 Weight 66.2 kg - Labs CBC & BMP: 02/15/18 05:20 02/15/18 05:20 Labs: Abnormal lab results RBC 3.53 M/mcL (3.82-4.97) L 02/13/18 06:25 Hgb 8.6 g/dL (11.5-15.4) L 02/15/18 05:20 Hct 29.2 % (35.3-44.9) L 02/15/18 05:20 MCH 27.8 pg (28.0-33.3) L 02/13/18 06:25 MCHC 30.4 g/dL (31.6-35.5) L 02/13/18 06:25 RDW 15.8 % (11.5-14.5) H 02/13/18 06:25 MPV 9.1 fL (9.4-12.4) L 02/13/18 06:25 ESR 82 mm/hr (0-15) H 02/09/18 03:50 PT 15.4 Seconds (9.4-12.1) H 02/08/18 08:28 Potassium 3.3 mEq/L (3.5-5.1) L 02/15/18 05:20 Chloride 109 mEq/L (98-107) H 02/15/18 05:20 BUN 7 mg/dL (8-23) L 02/15/18 05:20 Creatinine 0.59 mg/dL (0.60-1.20) L 02/15/18 05:20 Calcium 8.0 mg/dL (8.6-10.3) L 02/15/18 05:20 Urine Color [place] (Yellow) A 02/13/18 11:45 Urine Protein 30 mg/dL (Neg-Trace) H 02/13/18 11:45 Urine Ketones Trace mg/dL (Negative) H 02/13/18 11:45 Ur Leukocyte Esterase Small (Negative) H 02/13/18 11:45 Urine Microscopic WBC 5-15 per hpf (0-3) H 02/13/18 11:45 Urine Yeast Many per hpf (None Seen) H 02/13/18 11:45 Vancomycin Trough 12 mcg/mL (5-10) H 02/12/18 10:00 Consult Discharge Plan - Plan Referrals: Soila Sagastume, CERTIFIED INDUSTRIAL HYGIENIST [Primary Care Provider] - Prescriptions: HYDROcodone/Acet 5/325 mg [[place] 5-325 mg] 1 tab PO Q6HR PRN 7 Days #28 tablet PRN Reason: Moderate Pain Vancomycin/0.9 % Sod Chloride [Vanco 1 Gram/250 ml-0.9% NaCl] 1 gm IV Q12H 14 Days #28 plast..bag
[2018-02-15] MEDS ORDERED: *HR* FentaNYL PATCH 25 MCG PATCH TD SCH (16:30)
--- NOTE | 2018-02-15 17:11 | Discharge Summary ---
- NOTES TO OUTPATIENT PROVIDER Notes to Outpatient Provider: PCP in 5 to 7 days. Orthopedic out pt as scheduled Orders not resulted at time of discharge: Pending orders 02/08/18 07:35 Culture,Anaerobic [RM] Routine Culture,Body Fluid [RM] Routine Gram Stain [RM] Stat 02/13/18 18:00 Culture,Anaerobic [RM] Routine Culture,Wound [RM] Routine Date of Encounter: 02/15/18 Time of Encounter: 17:05 - Discharge Diagnosis (1) Superficial postoperative wound infection Priority: Primary Status: Acute Assessment and Plan: On Zosyn and Vancomycin for now. Will continue to monitor. Culture so far no growth (2) Fluid collection at surgical site Priority: Primary Status: Acute Assessment and Plan: with superficial skin infection. Plan serous secretion from surgical site has decreased as well as the erythema Ortho recommended conservative management with IV antibiotics On vancomycin per pharmacy dosing plus piperacillin/tazobactam 3.375mg/IV Q8HRs [place] 5-325mg/PO 1tab Q6HR PRN Ortho following. Qualifiers: Encounter type: initial encounter Qualified Code(s): T88.8XXA - Other specified complications of surgical and medical care, not elsewhere classified, initial encounter (3) S/P hip replacement Priority: Primary Status: Acute Assessment and Plan: s/p left hip hemiarthroplasty 01/16/18. Qualifiers: Laterality: left Qualified Code(s): Z96.642 - Presence of left artificial hip joint (4) Hypertension Status: Chronic Assessment and Plan: BP well controlled. On metoprolol 25mg/PO BID Qualifiers: Hypertension type: essential hypertension Qualified Code(s): I10 - Essential (primary) hypertension (5) Hyperlipidemia Status: Chronic Assessment and Plan: Continue atorvastatin 20mg/PO daily. On aspirin 81mg/PO daily. Qualifiers: Hyperlipidemia type: unspecified Qualified Code(s): E78.5 - Hyperlipidemia, unspecified (6) Parkinsons Status: Chronic Assessment and Plan: continue home meds; amantadine 100mg/PO TID carbidopa/levodopa 1 tab?PO 5xd entacapone 200mg/PO QID Hospital course: Ms. Machado is a 72 year old female - Time Spent with Patient Total time spent providing and/or coordinating discharge services: - Discharge Medications Prescriptions: HYDROcodone/Acet 5/325 mg [[place] 5-325 mg] 1 tab PO Q6HR PRN 7 Days #28 tablet PRN Reason: Moderate Pain Vancomycin/0.9 % Sod Chloride [Vanco 1 Gram/250 ml-0.9% NaCl] 1 gm IV Q12H 14 Days #28 plast..bag Home Medications: Amantadine HCl [Amantadine] 100 mg PO TID 01/16/18 [History] Aspirin Enteric Coated [Aspirin EC] 81 mg PO DAILY 01/16/18 [History] Atorvastatin [Lipitor] 20 mg PO HS 01/16/18 [History] Carbidopa/Levodopa ER 50/200 [Sinemet ER 50-200 Tab] 1 tab PO 5XD 01/16/18 [History] Cyanocobalamin (Vitamin B-12) [Vitamin B-12] 500 mcg PO DAILY 01/16/18 [History] Entacapone [Comtan] 200 mg PO QID 01/16/18 [History] Metoprolol Tartrate [Lopressor] 25 mg PO BID 01/16/18 [History] hydrOXYzine HCl [Hydroxyzine HCl] 10 mg PO HS 01/16/18 [History] Docusate [Colace] 100 mg PO BID capsule 01/18/18 [Rx] Multivit/Ca/Min/Fe/FA [Thera M Plus] 1 tab PO DAILY tablet 01/18/18 [Rx] FentaNYL PATCH [Duragesic] 25 mcg TD Q72H 02/06/18 [History] Vancomycin/0.9 % Sod Chloride [Vanco 1 Gram/250 ml-0.9% NaCl] 1 gm IV Q12H 14 Days #28 plast..bag 02/08/18 [Rx] HYDROcodone/Acet 5/325 mg [[place] 5-325 mg] 1 tab PO Q6HR PRN 7 Days #28 tablet 02/13/18 [Rx] Allergies/Adverse Reactions: Allergy/AdvReac Type Severity Reaction Status Date / Time metoclopramide [From Reglan] AdvReac Vomiting Verified 02/06/18 14:17 Penicillins AdvReac Vomiting Verified 02/06/18 14:17 Date of admission: 02/04/18 18:24 Primary care physician: YOHANA Salgado Consults: 02/04/18 17:54 Consult to Orthopedic Surgery [CONS] Stat Consulting Provider: [facility] Reason for Consult: Dr. Pham re: aspiration of fluid collection left hip s/p FIONA. Time Notified: 17:55 Call Completed: Yes 02/13/18 19:02 Consult to Nurse Navigator [CONS] Routine Comment: ortho navigator Consult to Occupational Therapy [CONS] Routine Comment: Evaluate, develop and implement POC Reason for Consult: total hip replacement Does patient have active BEDREST order?: No Is patient medically & hemodynamically stable?: Yes Consult to Physical Therapy [CONS] Routine Comment: Evaluate, develop and implement POC Reason for Consult: total hip replacement Does patient have active BEDREST order?: No Is patient medically & hemodynamically stable?: Yes Consult to [employer] Commerce Developer [CONS] Routine Reason for SW Consult: post op joint replacement RT Post Op Consult [CONS] Routine Discharging clinician: Kate Nicholson Anticipated date of discharge: 02/15/18 - Constitutional Vitals: Temp Pulse Resp BP Pulse Ox 98.1 F 71 16 119/70 93 02/15/18 15:02 02/15/18 15:02 02/15/18 15:02 02/15/18 15:02 02/15/18 15:02 - Patient Status Condition: Fair - Discharge Instructions Follow Up With: Soila Sagastume HEEL COVERER [Primary Care Provider] -
--- NOTE | 2018-02-15 17:17 | Internal Med Progress Note ---
Hospitalist Progress Note - Encounter Date of Encounter: 02/15/18 Time of Encounter: 17:15 - Subjective Interval History: Pt denies fever, chills, N/V or diarrhea. She denies chest pain or SOB. She denies abdominal pain. - Exam Vitals: Temp Pulse Resp BP Pulse Ox 98.1 F 71 16 119/70 93 02/15/18 15:02 02/15/18 15:02 02/15/18 15:02 02/15/18 15:02 02/15/18 15:02 Exam: Exam: VSS, Stable Gen: Calm, not in distress, speaks full sentences HEENT: Moist oral mucosa, sclera anicteric, not pale Chest: Equal chest movement bilaterally REsp: CTAB, diminished breath sound, likely due to body habitus Heart: S1, S2, only, no m/g/r Abdomen: Obese, soft, not tender, BS present in al quadrants Extremities: Left hip lateral incision dressing clean dry and intact, gauze on wound is minimally soaked with serous fluid, no purulent discharge noted, extremity is neurovascularly intact distally. , no pedal edema, pulses present bilaterally Neuro: AAOX3, no speech deficits, moves all extremities equally, no facial paralysis Psych: Affect is appropriate - Assessment and Plan (1) Superficial postoperative wound infection Current Visit: Yes Status: Acute Assessment and Plan: On Zosyn and Vancomycin for now. Will continue to monitor. Culture left hip showing Gram neg rods, and gram stain showing few Gram positive cocci. Awaiting final results and will adjust antibiotic as deemed appropriate at discharge. (2) Fluid collection at surgical site Current Visit: Yes Status: Acute Assessment and Plan: with superficial skin infection. Plan serous secretion from surgical site has decreased as well as the erythema Ortho recommended conservative management with IV antibiotics On vancomycin per pharmacy dosing plus piperacillin/tazobactam 3.375mg/IV Q8HRs [place] 5-325mg/PO 1tab Q6HR PRN Ortho following. (3) S/P hip replacement Current Visit: Yes Status: Acute Assessment and Plan: s/p left hip hemiarthroplasty 01/16/18. Accepted to SNF but awaiting culture results to determine appropriate antibiotic. (4) Hypertension Current Visit: Yes Status: Chronic Assessment and Plan: BP well controlled. On metoprolol 25mg/PO BID (5) Hyperlipidemia Current Visit: Yes Status: Chronic Assessment and Plan: Continue atorvastatin 20mg/PO daily. On aspirin 81mg/PO daily. (6) Parkinsons Current Visit: Yes Status: Chronic Assessment and Plan: continue home meds; amantadine 100mg/PO TID carbidopa/levodopa 1 tab?PO 5xd entacapone 200mg/PO QID DVT Prophylaxis: SCD - Summary of Assessment and Plan Summary of Assessment and Plan: History of present illness: Dr. Roe Ms. Machado is a 72 year old female with Parkinson's disease, who was recently discharged from this facility status post left total arthroplasty 19 days ago. 2 days ago, nabeel were removed from the incision as outpatient, and the patient was returned to the assisted facility. She represented to the ER today with complaints of copious clear discharge from the wound. According to chart, they have drained about a gallon . No family at bedside during evaluation, patient is fairly stable and in no form of distress, she denies fever or chills, she denies pain at the site of surgery unless pinched, she denies chest pain, shortness of breath, nausea, vomiting, abdominal pain, fever, diarrhea. She was just treated for urinary tract infection with Bactrim from the nursing facility. Labs and workup. Unremarkable She remains afebrile here CAT scan showed fluid collection surrounding incision and prosthesis likely seroma versus abscess. The patient will be admitted inpatient for evaluation for seroma, it is unlikely that the patient has an infection at this time. Orthopedic surgery has been consulted The patient has no advance directives, and she is full code. - Time Spent with Patient Total time spent is greater than 50% in coordination of care (as documented) at patient's floor/unit and/or counseling patient: less than 15 minutes Plan of Care Discussed with: patient Internal Medicine: Result - Labs CBC & Chem 7: 02/15/18 05:20 02/15/18 05:20 Labs: Short CBC 02/15/18 Range/Units 05:20 Hgb 8.6 L (11.5-15.4) g/dL Hct 29.2 L (35.3-44.9) % BMP 02/14/18 02/15/18 22:50 05:20 Sodium 139 Potassium 3.3 L 3.3 L Chloride 109 H Carbon Dioxide 28 BUN 7 L Creatinine 0.59 L Glucose 100 Calcium 8.0 L - ABG Interpretation ABG results: PT/INR, D-dimer PT 15.4 Seconds (9.4-12.1) H 02/08/18 08:28 Consult Discharge Plan - Plan Referrals: Soila Sagastume, [employer] [Primary Care Provider] - Prescriptions: HYDROcodone/Acet 5/325 mg [[place] 5-325 mg] 1 tab PO Q6HR PRN 7 Days #28 tablet PRN Reason: Moderate Pain Vancomycin/0.9 % Sod Chloride [Vanco 1 Gram/250 ml-0.9% NaCl] 1 gm IV Q12H 14 Days #28 plast..bag (2) Fluid collection at surgical site Qualifiers: Encounter type: initial encounter Qualified Code(s): T88.8XXA - Other specified complications of surgical and medical care, not elsewhere classified, initial encounter (3) S/P hip replacement Qualifiers: Laterality: left Qualified Code(s): Z96.642 - Presence of left artificial hip joint (4) Hypertension Qualifiers: Hypertension type: essential hypertension Qualified Code(s): I10 - Essential (primary) hypertension (5) Hyperlipidemia Qualifiers: Hyperlipidemia type: unspecified Qualified Code(s): E78.5 - Hyperlipidemia, unspecified
[2018-02-16] MEDS: Piperacillin/Tazobactam 3.375 GM in 0.9 % Sodium Chloride Mini Bag 100 ML IVPB SCH ×3 (01:13→18:31)
[2018-02-16] MEDS: Carbidopa/Levodopa ER 50/200 TABLET PO SCH ×5 (01:14→20:08)
[2018-02-16 05:52] LABS: Hematocrit 30.3 % (35.3-44.9); Hemoglobin 9.1 g/dL (11.5-15.4); Mean Corpuscular Volume 93.2 fL (83.0-100.0); Mean Platelet Volume 9.5 fL (9.4-12.4); Platelet Count 191 K/mcL (140-400); Red Blood Count 3.25 M/mcL (3.82-4.97)
[2018-02-16 06:11] LABS: BUN/Creatinine Ratio 8 (6-26); Blood Urea Nitrogen 5 mg/dL (8-23); Calcium 8.4 mg/dL (8.6-10.3); Carbon Dioxide 26 mEq/L (23-29); Chloride 110 mEq/L (98-107); Glucose 93 mg/dL (70-105); Osmolality,Calculated 287 (280-300); Potassium 3.7 mEq/L (3.5-5.1); Sodium 140 mEq/L (136-145); eGFR For Non-African Americans > 60 (> 60)
[2018-02-16] MEDS: Ascorbic Acid 500 MG TABLET PO SCH ×2 (10:28→18:34)
[2018-02-16] MEDS: Multivit/Ca/Min/Fe/FA 1 TAB TABLET PO SCH (10:28)
[2018-02-16] MEDS: Aspirin Enteric Coated 81 MG Tablet PO SCH (10:29)
--- NOTE | 2018-02-16 10:48 | Orthopedics Progress Note ---
Date of Encounter: 02/16/18 Time of Encounter: 10:47 Subjective Principal diagnosis: POW#3 s/p left hip hemiarthroplasty 01/16/18 Interval history: Patient was seen this morning doing well without complaints. Afebrile vital signs stable. Operative extremity: Neurovascularly intact Dressing with bloody drainage, dressing changed, no active drainage wound dry and intact. Calves nontender Assessment and plan: Continue with postoperative care Objective Vital signs: Vital Signs Temp Pulse Resp BP Pulse Ox 02/16/18 07:13 97.9 F 84 16 112/76 98 02/16/18 04:20 98.0 F 83 16 120/55 98 02/15/18 23:19 98.0 F 79 16 113/77 100 02/15/18 19:13 98.0 F 72 16 133/63 98 02/15/18 15:02 98.1 F 71 16 119/70 93 Intake and Output 02/15/18 02/16/18 02/16/18 23:59 07:59 15:59 Intake Total 400 / 400 100 / 100 180 / 180 Output Total 450 / 450 400 / 400 Balance -50 / -50 -300 / -300 180 / 180 Intake: IV Fluids 100 / 100 100 / 100 Zosyn 3.375 GM In 0.9 % Sodium 100 / 100 100 / 100 Chloride (Mini-Bag +) 100 ML @ 25 mls/hr IVPB Q8H [facility] Rx#: [id number] Oral 300 / 300 180 / 180 Output: Catheter 450 / 450 400 / 400 Other: Meal Dinner Breakfast Percent of Meal Consumed 20% 50% Stool Consistency loose # Bowel Movements 1 Weight 67.4 kg Patient Weight 02/16/18 23:59 Weight 67.4 kg - Labs CBC & BMP: 02/16/18 03:18 02/16/18 05:30 Labs: Abnormal lab results RBC 3.25 M/mcL (3.82-4.97) L 02/16/18 03:18 Hgb 9.1 g/dL (11.5-15.4) L 02/16/18 03:18 Hct 30.3 % (35.3-44.9) L 02/16/18 03:18 MCHC 30.0 g/dL (31.6-35.5) L 02/16/18 03:18 RDW 16.0 % (11.5-14.5) H 02/16/18 03:18 ESR 82 mm/hr (0-15) H 02/09/18 03:50 PT 15.4 Seconds (9.4-12.1) H 02/08/18 08:28 Chloride 110 mEq/L (98-107) H 02/16/18 05:30 BUN 5 mg/dL (8-23) L 02/16/18 05:30 Calcium 8.4 mg/dL (8.6-10.3) L 02/16/18 05:30 Urine Color [place] (Yellow) A 02/13/18 11:45 Urine Protein 30 mg/dL (Neg-Trace) H 02/13/18 11:45 Urine Ketones Trace mg/dL (Negative) H 02/13/18 11:45 Ur Leukocyte Esterase Small (Negative) H 02/13/18 11:45 Urine Microscopic WBC 5-15 per hpf (0-3) H 02/13/18 11:45 Urine Yeast Many per hpf (None Seen) H 02/13/18 11:45 Vancomycin Trough 12 mcg/mL (5-10) H 02/12/18 10:00 Consult Discharge Plan - Plan Referrals: Soila Sagastume, [employer]IEF [Primary Care Provider] - Prescriptions: HYDROcodone/Acet 5/325 mg [[place] 5-325 mg] 1 tab PO Q6HR PRN 7 Days #28 tablet PRN Reason: Moderate Pain Vancomycin/0.9 % Sod Chloride [Vanco 1 Gram/250 ml-0.9% NaCl] 1 gm IV Q12H 14 Days #28 plast..bag
--- NOTE | 2018-02-16 19:45 | Internal Med Progress Note ---
Hospitalist Progress Note - Encounter Date of Encounter: 02/16/18 Time of Encounter: 14:10 - Subjective Interval History: Patient seen and examined today in the presence of the nurse. Pt denies fever, chills, N/V or diarrhea. She denies chest pain or SOB. She denies abdominal pain. Today patient's wound culture is showing a gram-negative jef. She is awaiting intermediate placement. Tomorrow when the culture is finalized we will be able to send her to the intermediate. - Exam Vitals: Temp Pulse Resp BP Pulse Ox 97.8 F 112 16 113/64 89 02/16/18 17:50 02/16/18 17:50 02/16/18 17:50 02/16/18 17:50 02/16/18 17:50 Exam: Exam: VSS, Stable Gen: Calm, not in distress, speaks full sentences HEENT: Moist oral mucosa, sclera anicteric, not pale Chest: Equal chest movement bilaterally REsp: CTAB, diminished breath sound, likely due to body habitus Heart: S1, S2, only, no m/g/r Abdomen: Obese, soft, not tender, BS present in al quadrants Extremities: Left hip lateral incision dressing clean dry and intact, gauze on wound is minimally soaked with serous fluid, no purulent discharge noted, extremity is neurovascularly intact distally. , no pedal edema, pulses present bilaterally Neuro: AAOX3, no speech deficits, moves all extremities equally, no facial par alysis Psych: Affect is appropriate - Assessment and Plan (1) Superficial postoperative wound infection Current Visit: Yes Status: Acute Assessment and Plan: (1) Superficial postoperative wound infection Current Visit: Yes Status: Acute Assessment and Plan: On Zosyn and Vanc for now till cultures finalize. Will continue to monitor. Culture left hip showing Gram neg rods, and gram stain showing few Gram positive cocci. Awaiting final results and will adjust antibiotic as deemed appropriate at discharge. (2) Fluid collection at surgical site Current Visit: Yes Status: Acute Assessment and Plan: with superficial skin infection. Plan serous secretion from surgical site has decreased as well as the erythema Ortho recommended conservative management with IV antibiotics Cnt Zosyn [place] 5-325mg/PO 1tab Q6HR PRN Ortho following. (3) S/P hip replacement Current Visit: Yes Status: Acute Assessment and Plan: s/p left hip hemiarthroplasty 01/16/18. Accepted to SNF but awaiting culture results to determine appropriate antibiotic. (4) Hypertension Current Visit: Yes Status: Chronic Assessment and Plan: BP well controlled. On metoprolol 25mg/PO BID (5) Hyperlipidemia Current Visit: Yes Status: Chronic Assessment and Plan: Continue atorvastatin 20mg/PO daily. On aspirin 81mg/PO daily. (6) Parkinsons Current Visit: Yes Status: Chronic Assessment and Plan: continue home meds; amantadine 100mg/PO TID carbidopa/levodopa 1 tab?PO 5xd entacapone 200mg/PO QID Possible dc in AM after cultures finalize. DVT Prophylaxis: SCD - Summary of Assessment and Plan Summary of Assessment and Plan: History of present illness: Dr. Roe Ms. Machado is a 72 year old female with Parkinson's disease, who was recently discharged from this facility status post left total arthroplasty 19 days ago. 2 days ago, nabeel were removed from the incision as outpatient, and the patient was returned to the assisted facility. She represented to the ER today with complaints of copious clear discharge from the wound. According to chart, they have drained about a gallon . No family at bedside during evaluation, patient is fairly stable and in no form of distress, she denies fever or chills, she denies pain at the site of surgery unless pinched, she denies chest pain, shortness of breath, nausea, vomiting, abdominal pain, fever, diarrhea. She was just treated for urinary tract infection with Bactrim from the nursing facility. Labs and workup. Unremarkable She remains afebrile here CAT scan showed fluid collection surrounding incision and prosthesis likely seroma versus abscess. The patient will be admitted inpatient for evaluation for seroma, it is unlikely that the patient has an infection at this time. Orthopedic surgery has been consulted The patient has no advance directives, and she is full code. - Time Spent with Patient Total time spent is greater than 50% in coordination of care (as documented) at patient's floor/unit and/or counseling patient: 25 - 35 minutes Internal Medicine: Result - Labs CBC & Chem 7: 02/16/18 03:18 02/16/18 05:30 Labs: Short CBC 02/16/18 Range/Units 03:18 WBC 4.9 (4.3-11.1) K/mcL Hgb 9.1 L (11.5-15.4) g/dL Hct 30.3 L (35.3-44.9) % Plt Count 191 (140-400) K/mcL BMP 02/16/18 05:30 Sodium 140 Potassium 3.7 Chloride 110 H Carbon Dioxide 26 BUN 5 L Creatinine 0.60 Glucose 93 Calcium 8.4 L - ABG Interpretation ABG results: PT/INR, D-dimer PT 15.4 Seconds (9.4-12.1) H 02/08/18 08:28 Consult Discharge Plan - Plan Referrals: Soila Sagastume, COMPUTER PATTERN[employer]KER [Primary Care Provider] - Prescriptions: HYDROcodone/Acet 5/325 mg [[place] 5-325 mg] 1 tab PO Q6HR PRN 7 Days #28 tablet PRN Reason: Moderate Pain Vancomycin/0.9 % Sod Chloride [Vanco 1 Gram/250 ml-0.9% NaCl] 1 gm IV Q12H 14 Days #28 plast..bag
[2018-02-17] MEDS: Piperacillin/Tazobactam 3.375 GM in 0.9 % Sodium Chloride Mini Bag 100 ML IVPB SCH (01:21)
[2018-02-17] MEDS: Carbidopa/Levodopa ER 50/200 TABLET PO SCH ×4 (01:21→15:39)
[2018-02-17] MEDS: Aspirin Enteric Coated 81 MG Tablet PO SCH (08:16)
[2018-02-17] MEDS: Ascorbic Acid 500 MG TABLET PO SCH ×2 (08:16→17:43)
--- NOTE | 2018-02-17 08:16 | Orthopedics Progress Note ---
Date of Encounter: 02/17/18 Time of Encounter: 08:15 Subjective Principal diagnosis: POW#3 s/p left hip hemiarthroplasty 01/16/18 Interval history: Patient was seen this morning doing well without complaints. Afebrile vital signs stable. Operative extremity: Neurovascularly intact Dressing with bloody drainage, dressing changed, no active drainage wound dry and intact. Calves nontender Assessment and plan: Continue with postoperative care discharge when cleared by hospitalist Objective Vital signs: Vital Signs Temp Pulse Resp BP Pulse Ox 02/17/18 06:43 97.6 F 68 16 126/73 95 02/17/18 05:57 63 16 120/75 02/17/18 04:23 87 96/63 02/17/18 04:09 97.3 F L 68 16 89/54 100 02/17/18 00:23 98.1 F 64 16 106/66 100 02/16/18 20:15 97.9 F 71 16 103/54 100 02/16/18 17:50 97.8 F 112 16 113/64 89 Intake and Output 02/16/18 02/17/18 02/17/18 23:59 07:59 15:59 Intake Total 600 / 600 100 / 100 Output Total 250 / 250 700 / 700 Balance 350 / 350 -600 / -600 Intake: IV Fluids 100 / 100 100 / 100 Zosyn 3.375 GM In 0.9 % Sodium 100 / 100 100 / 100 Chloride (Mini-Bag +) 100 ML @ 25 mls/hr IVPB Q8H [facility] Rx#: [id number] Oral 500 / 500 Output: Catheter 250 / 250 700 / 700 Other: Meal Dinner Percent of Meal Consumed 20% Stool Size Moderate Stool Consistency liquid soft Stool Characteristics Normal for Patient Stool Color Brown Brown # Bowel Movements 1 1 Weight 68.2 kg Patient Weight 02/17/18 23:59 Weight 68.2 kg - Labs CBC & BMP: 02/16/18 03:18 02/16/18 05:30 Labs: Abnormal lab results RBC 3.25 M/mcL (3.82-4.97) L 02/16/18 03:18 Hgb 9.1 g/dL (11.5-15.4) L 02/16/18 03:18 Hct 30.3 % (35.3-44.9) L 02/16/18 03:18 MCHC 30.0 g/dL (31.6-35.5) L 02/16/18 03:18 RDW 16.0 % (11.5-14.5) H 02/16/18 03:18 ESR 82 mm/hr (0-15) H 02/09/18 03:50 PT 15.4 Seconds (9.4-12.1) H 02/08/18 08:28 Chloride 110 mEq/L (98-107) H 02/16/18 05:30 BUN 5 mg/dL (8-23) L 02/16/18 05:30 Calcium 8.4 mg/dL (8.6-10.3) L 02/16/18 05:30 Urine Color [place] (Yellow) A 02/13/18 11:45 Urine Protein 30 mg/dL (Neg-Trace) H 02/13/18 11:45 Urine Ketones Trace mg/dL (Negative) H 02/13/18 11:45 Ur Leukocyte Esterase Small (Negative) H 02/13/18 11:45 Urine Microscopic WBC 5-15 per hpf (0-3) H 02/13/18 11:45 Urine Yeast Many per hpf (None Seen) H 02/13/18 11:45 Consult Discharge Plan - Plan Referrals: Soila Sagastume, B[employer] C[employer] REPRESENTATIVE [Primary Care Provider] - Prescriptions: HYDROcodone/Acet 5/325 mg [[place] 5-325 mg] 1 tab PO Q6HR PRN 7 Days #28 tablet PRN Reason: Moderate Pain Vancomycin/0.9 % Sod Chloride [Vanco 1 Gram/250 ml-0.9% NaCl] 1 gm IV Q12H 14 Days #28 plast..bag
[2018-02-17] MEDS: Multivit/Ca/Min/Fe/FA 1 TAB TABLET PO SCH (08:17)
--- NOTE | 2018-02-17 11:48 | Discharge Summary ---
Orders not resulted at time of discharge: Pending orders 02/08/18 07:35 Culture,Anaerobic [RM] Routine Culture,Body Fluid [RM] Routine Gram Stain [RM] Stat 02/13/18 18:00 Culture,Anaerobic [RM] Routine Date of Encounter: 02/17/18 Time of Encounter: 07:45 - Discharge Diagnosis (1) S/P hip replacement Priority: Primary Status: Acute Qualifiers: Laterality: left Qualified Code(s): Z96.642 - Presence of left artificial hip joint (2) Superficial postoperative wound infection Priority: Primary Status: Acute (3) Seroma Priority: Secondary Status: Acute (4) Hypertension Priority: Secondary Status: Chronic Qualifiers: Hypertension type: essential hypertension Qualified Code(s): I10 - Essential (primary) hypertension (5) Parkinsons Priority: Secondary Status: Chronic Hospital course: History of present illness: Ms. Machado is a 72 year old female with Parkinson's disease, who was recently discharged from this facility status post left total arthroplasty 19 days ago. 2 days ago, nabeel were removed from the incision as outpatient, and the patient was returned to the custodial facility. She represented to the ER today with complaints of copious clear discharge from the wound. According to chart, they have drained about a gallon . No family at bedside during evaluation, patient is fairly stable and in no form of distress, she denies fever or chills, she denies pain at the site of surgery unless pinched, she denies chest pain, shortness of breath, nausea, vomiting, abdominal pain, fever, diarrhea. She was just treated for urinary tract infection with Bactrim from the nursing facility. Labs and workup. Unremarkable She remains afebrile here CAT scan showed fluid collection surrounding incision and prosthesis likely seroma versus abscess. The patient will be admitted inpatient for evaluation for seroma, it is unlikely that the patient has an infection at this time. Orthopedic surgery has been consulted The patient has no advance directives, and she is full code. Hospital Course: The patient was admitted to the orthopedic floor. The patient was put on IV antibiotics. On 02/13/2018 the patient underwent a Left hip wound irrigation debridement and closure. After this patient was continued on antibiotics. The wound culture grew Escherichia coli which was considered pansensitive. The patient received vancomycin and Zosyn in-house to the culture reports were back. She is being discharged on Augmentin. On the day of discharge the patient was seen and examined and feels ready to go. She has no new complaints. Discharge discussed with: patient, nurse - Time Spent with Patient Total time spent providing and/or coordinating discharge services: Greater than 30 minutes - Discharge Medications Prescriptions: HYDROcodone/Acet 5/325 mg [[place] 5-325 mg] 1 tab PO Q6HR PRN 7 Days #28 tablet PRN Reason: Moderate Pain Levofloxacin [Levaquin] 750 mg PO QDPC 10 Days #10 tablet Home Medications: Amantadine HCl [Amantadine] 100 mg PO TID 01/16/18 [History] Aspirin Enteric Coated [Aspirin EC] 81 mg PO DAILY 01/16/18 [History] Atorvastatin [Lipitor] 20 mg PO HS 01/16/18 [History] Carbidopa/Levodopa ER 50/200 [Sinemet ER 50-200 Tab] 1 tab PO 5XD 01/16/18 [History] Cyanocobalamin (Vitamin B-12) [Vitamin B-12] 500 mcg PO DAILY 01/16/18 [History] Entacapone [Comtan] 200 mg PO QID 01/16/18 [History] Metoprolol Tartrate [Lopressor] 25 mg PO BID 01/16/18 [History] hydrOXYzine HCl [Hydroxyzine HCl] 10 mg PO HS 01/16/18 [History] Docusate [Colace] 100 mg PO BID capsule 01/18/18 [Rx] Multivit/Ca/Min/Fe/FA [Thera M Plus] 1 tab PO DAILY tablet 01/18/18 [Rx] FentaNYL PATCH [Duragesic] 25 mcg TD Q72H 02/06/18 [History] HYDROcodone/Acet 5/325 mg [[place] 5-325 mg] 1 tab PO Q6HR PRN 7 Days #28 tablet 02/13/18 [Rx] Levofloxacin [Levaquin] 750 mg PO QDPC 10 Days #10 tablet 02/17/18 [Rx] Allergies/Adverse Reactions: Allergy/AdvReac Type Severity Reaction Status Date / Time metoclopramide [From Reglan] AdvReac Vomiting Verified 02/06/18 14:17 Penicillins AdvReac Vomiting Verified 02/06/18 14:17 Date of admission: 02/04/18 18:24 Primary care physician: YOHANA Salgado Consults: 02/04/18 17:54 Consult to Orthopedic Surgery [CONS] Stat Consulting Provider: [facility] Reason for Consult: Dr. Pham re: aspiration of fluid collection left hip s/p FIONA. Time Notified: 17:55 Call Completed: Yes 02/13/18 19:02 Consult to Nurse Navigator [CONS] Routine Comment: ortho navigator Consult to Occupational Therapy [CONS] Routine Comment: Evaluate, develop and implement POC Reason for Consult: total hip replacement Does patient have active BEDREST order?: No Is patient medically & hemodynamically stable?: Yes Consult to Physical Therapy [CONS] Routine Comment: Evaluate, develop and implement POC Reason for Consult: total hip replacement Does patient have active BEDREST order?: No Is patient medically & hemodynamically stable?: Yes Consult to Brand Marketing Manager [CONS] Routine Reason for SW Consult: post op joint replacement RT Post Op Consult [CONS] Routine Discharging clinician: Mauricio Garcia Anticipated date of discharge: 02/17/18 - Constitutional Vitals: Temp Pulse Resp BP Pulse Ox 98.1 F 74 16 101/65 96 02/17/18 10:27 02/17/18 10:27 02/17/18 10:27 02/17/18 10:27 02/17/18 10:27 Exam: Exam: VSS, Stable Gen: Calm, not in distress, speaks full sentences HEENT: Moist oral mucosa, sclera anicteric, not pale Chest: Equal chest movement bilaterally REsp: CTAB, diminished breath sound, likely due to body habitus Heart: S1, S2, only, no m/g/r Abdomen: Obese, soft, not tender, BS present in al quadrants Extremities: Left hip lateral incision dressing clean dry and intact, gauze on wound is minimally soaked with serous fluid, no purulent discharge noted, extremity is neurovascularly intact distally. , no pedal edema, pulses present bilaterally Neuro: AAOX3, no speech deficits, moves all extremities equally, no facial paralysis Psych: Affect is appropriate - Patient Status Disposition: Transfer SNF Condition: Fair Overall status at discharge: patient is progressing back to baseline - Discharge Instructions Follow Up With: Soila Sagastume, [employer] [Primary Care Provider] - - Diet and Activity Activity: as per physical therapy Diet: advance to your usual diet, low fat, low cholesterol
--- NOTE | 2018-02-17 12:11 | Physician Discharge Referral ---
Addendum entered and electronically signed by BRAULIO Meier 02/17/18 13:47: ORTHO ORDERS: Gram Positive Cocci on Cultures: Completed IV Zosyn and Vancomycin D/C: Levaquin 750mg x 10 days - 02/27 end date. TID dressing changes to right hip, or as needed for saturation. daily cleanses. Farhana in place, plan to remove at post-operative day #14-16. Total Joint Precautions x 4 weeks Apply cold therapy wrap 3-6x/day for 20 minutes at a time. Encourage ambulation throughout the day Use Incentive spirometer 10x/hour. Elevate affected extremity above heart as tolerated. Brace: Wear hip abductor brace at night x 4 weeks. Original Note: [facility] Referral Info Transfer To: [facility] - Diagnosis (1) S/P hip replacement Status: Acute (2) Superficial postoperative wound infection Status: Acute (3) Seroma Status: Acute (4) Hypertension Status: Chronic (5) Parkinsons Status: Chronic - Transfer Medications Prescriptions: HYDROcodone/Acet 5/325 mg [[place] 5-325 mg] 1 tab PO Q6HR PRN 7 Days #28 tablet PRN Reason: Moderate Pain Levofloxacin [Levaquin] 750 mg PO QDPC 10 Days #10 tablet Home Medications: Amantadine HCl [Amantadine] 100 mg PO TID 01/16/18 [History] Aspirin Enteric Coated [Aspirin EC] 81 mg PO DAILY 01/16/18 [History] Atorvastatin [Lipitor] 20 mg PO HS 01/16/18 [History] Carbidopa/Levodopa ER 50/200 [Sinemet ER 50-200 Tab] 1 tab PO 5XD 01/16/18 [History] Cyanocobalamin (Vitamin B-12) [Vitamin B-12] 500 mcg PO DAILY 01/16/18 [History] Entacapone [Comtan] 200 mg PO QID 01/16/18 [History] Metoprolol Tartrate [Lopressor] 25 mg PO BID 01/16/18 [History] hydrOXYzine HCl [Hydroxyzine HCl] 10 mg PO HS 01/16/18 [History] Docusate [Colace] 100 mg PO BID capsule 01/18/18 [Rx] Multivit/Ca/Min/Fe/FA [Thera M Plus] 1 tab PO DAILY tablet 01/18/18 [Rx] FentaNYL PATCH [Duragesic] 25 mcg TD Q72H 02/06/18 [History] HYDROcodone/Acet 5/325 mg [Ellington 5-325 mg] 1 tab PO Q6HR PRN 7 Days #28 tablet 02/13/18 [Rx] Levofloxacin [Levaquin] 750 mg PO QDPC 10 Days #10 tablet 02/17/18 [Rx] Allergies/Adverse Reactions: Allergy/AdvReac Type Severity Reaction Status Date / Time metoclopramide [From Reglan] AdvReac Vomiting Verified 02/06/18 14:17 Penicillins AdvReac Vomiting Verified 02/06/18 14:17 - Respiratory Orders None Smoking Cessation: Smoking cessation has been advised. For more information, call the [employer] Tobacco Quit Line at 9-481-CUOQ-NOW. - Advance Directives Code Status: Full Code - History and Physical History/Physical reviewed & approved w/add comments: Yes - Mobility Orders Bedrest - Treatments Skin tear care topically daily PRN per policy, May check for fecal impaction rectally daily PRN, Fleet enema rectally every other day PRN cleansing purposes - Diet Orders Cardiac CERTIFICATION: I certify that the transfer of the above named patient to an Extended Care Facility is necessary for the continuing treatment of the diagnosis listed. The above information is true and accurate reflection of patient's current condition. Confidential - Redisclosure prohibited without a patient's written consent.
[2018-02-17 13:03] LABS: Hematocrit 31.6 % (35.3-44.9); Hemoglobin 9.5 g/dL (11.5-15.4)
[2018-02-17 15:55] VITALS: BP 103/56
[2018-02-17] MEDS ORDERED: Aminoglycoside Consult 1 EACH MC ONE (18:44)
== END 2018-02-17 18:45 | DRG 857 ==
LOC: EMEROOARM 15:26 → 3NENU 18:24 → SUATTDRO 18:24 → 3NENU 20:06
PROVIDERS: ADMIT Internal Medicine; ATTEND Internal Medicine
PROC: IRFLUID (2018-02-08 13:00)